=== PATIENT | female | born 1975 | race Caucasian/White ===

== ENCOUNTER 2023-06-12 15:58 | Outpatient (OUT) | payer BC, SELFPAY ==
--- NOTE | 2023-06-12 16:06 | XR_ITS ---
The [address] [address] Patient Name: DYLAN BRANDON MRN: [id number] date: 1975 Sex: F Assigned Patient Location: [facility] Current Patient Location: [facility] Accession/Order Number: [id number] Exam Date: 06/12/2023 16:10 Report Date: 06/12/2023 22:44 At the request of: CONNER GOOD Procedure: XR cervical spine 5V EXAM: XR cervical spine 5V HISTORY: Cervicalgia M54.2 COMPARISON: None. TECHNIQUE: 6 views of the cervical spine FINDINGS: Status post ACDF at C5-C6 without hardware complication. Vertebral body heights and alignment are preserved. Degenerative disc disease is most severe at C6-C7 where it is mild. Prevertebral soft tissues are within normal limits. No significant osseous narrowing of the neural foramina. The dens and lateral masses are symmetrically aligned. Lung apices are clear. XR/XR cervical spine 5V IMPRESSION: Status post ACDF at C5-C6 without hardware complication. Mild degenerative disc disease most notable at C6-C7. Electronically authenticated by: LAYLA GONZALES Date: 06/12/2023 22:44
== END 2023-06-12 15:59 | disposition home or self-care (01) ==
LOC: RAD 16:01
PROVIDERS: PCP Family Medicine; Visit Provider Family Medicine
DX: M54.2 Cervicalgia (principal)
CPT/HCPCS: 72050

== ENCOUNTER 2024-05-31 13:52 | Emergency (ER) | payer BC, SELFPAY ==
[2024-05-31 14:23] VITALS: BP 165/74; PULSE 76; TEMP 36.9; O2SAT 100; BMI 35.0
--- NOTE | 2024-05-31 14:40 | CT_ITS ---
The [address] [address] Patient Name: DYLAN BRANDON MRN: [id number] date: 1975 Sex: F Assigned Patient Location: ER Current Patient Location: ER Accession/Order Number: [id number] Exam Date: 05/31/2024 14:52 Report Date: 05/31/2024 15:34 At the request of: ASAF CERDA Procedure: CT abdomen pelvis wo con CT ABDOMEN/PELVIS WITHOUT IV CONTRAST. INDICATION: Flank pain COMPARISON: There are no other studies available for comparison. TECHNIQUE: Contiguous axial images were obtained from the lung bases to the pelvic floor without intravenous or oral contrast. Coronal and sagittal reformations are provided. FINDINGS: LOWER LUNGS: Clear. LIVER/BILIARY TREE: No discrete lesion. No intrahepatic ductal dilatation. GALLBLADDER: Status post cholecystectomy.. CBD: Normal CBD. SPLEEN: Normal in size. PANCREAS: No appreciable peripancreatic fluid. No pancreatic ductal dilatation. No discrete lesion. ADRENALS: Normal. KIDNEYS: No hydronephrosis. No radiopaque calculus. STOMACH AND BOWEL: Postoperative changes of the stomach. No dilated bowel loops. No bowel wall thickening. APPENDIX: Normal appendix. PERITONEAL CAVITY: No fluid. No fat stranding. ABDOMINAL WALL: No subcutaneous stranding. No subcutaneous fluid collection. LYMPH NODES: No mesenteric or retroperitoneal lymphadenopathy by CT criteria. ABDOMINAL AORTA: No aneurysm. PELVIS: There is mild bladder thickening and stranding. MUSCULOSKELETAL: No acute osseous abnormality. CT/CT abdomen pelvis wo con IMPRESSION: 1. Findings are suggestive of cystitis. 2. No obstructive uropathy. No nephrolithiasis. Electronically authenticated by: JEFFERSON PITTS Date: 05/31/2024 15:34
[2024-05-31 15:02] LABS: Basophils Absolute Auto 0.1 10^3/uL (0.0-0.1); Basophils Percent Auto 0.7 % (0.2-2.0); Eosinophils Absolute Auto 0.1 10^3/uL (0.0-0.7); Eosinophils Percent Auto 0.9 % (0.9-7.0); Hematocrit 33.5 % (36.0-48.0); Hemoglobin 10.1 g/dL (12.0-16.0); Immature Granulocytes Abs Auto 0.03 10^3/uL (0.00-0.03); Immature Granulocytes Pct Auto 0.3 % (0.0-0.5); Lymphocytes Percent Auto 11.5 % (20.5-60.0); Mean Corpuscular HGB Conc 30.1 g/dL (29.9-35.2); Mean Corpuscular Hemoglobin 25.1 pg (26.7-34.0); Mean Corpuscular Volume 83.3 fL (81.0-99.0); Mean Platelet Volume 9.9 fL (9.5-13.5); Monocytes Absolute Auto 0.7 10^3/uL (0.3-0.8); Monocytes Percent Auto 7.9 % (1.7-12.0); Neutrophils Absolute Auto 6.8 10^3/uL (1.4-6.5); Neutrophils Percent Auto 78.7 % (43.0-75.0); Platelet Count 228 10^3/uL (150-450); Red Blood Count 4.02 10^6/uL (4.20-5.40); Red Cell Distribution Width 14.5 % (11.0-15.0); White Blood Count 8.6 10^3/uL (4.0-11.0)
[2024-05-31 15:19] LABS: Lactate/Lactic Acid 0.6 mmol/L (0.4-2.0)
--- NOTE | 2024-05-31 15:40 | ED_ITS ---
HPI - Abdominal Pain General Chief Complaint: Abdominal Pain Stated Complaint: UTI COMPLAINTS Time Seen by Provider: 05/31/24 14:54 Source: patient Mode of arrival: walk-in Limitations: no limitations History of Present Illness HPI narrative: Patient is a 49-year-old female who presents to the emergency department for evaluation of suprapubic abdominal pain with radiation to the bilateral flanks for the last several days. She denies any unilateral CVA tenderness. No fevers. She states she vomited 2 hours ago. She has had burning with urination. She states she has been treated for UTI in the past but it has been several years. She is not concerned for . No medications taken prior to arrival. Related Data Previous Rx's ?Medication ?Instructions ?Recorded ciprofloxacin HCl 500 mg tablet 500 mg PO Q12H #14 tabs 05/31/24 ketorolac 10 mg tablet 10 mg PO TID PRN pain #10 tabs 05/31/24 ondansetron 4 mg disintegrating 4 mg PO Q6H PRN nausea and 05/31/24 tablet vomiting #12 tabs phenazopyridine 200 mg tablet 200 mg PO Q8H 2 days #6 tabs 05/31/24 (Pyridium) Allergies Allergy/AdvReac Type Severity Reaction Status Date / Time amoxicillin AdvReac Severe Palpitation Verified 05/31/24 14:23 s Review of Systems ROS Constitutional Denies: fever or chills Ears, nose, mouth, and throat Denies: throat pain or nasal congestion Cardiovascular Denies: chest pain Respiratory Denies: shortness of breath Gastrointestinal Reports: abdominal pain, nausea and vomiting; Denies: diarrhea Genitourinary Reports: painful urination Musculoskeletal Reports: back pain; Denies: neck pain Integumentary/Breast Denies: rash Hematologic/Lymphatic Denies: easy bruising or easy bleeding Exam Narrative Exam Narrative: Gen.: Awake, alert, in no distress Head: Normocephalic, atraumatic ENT: Moist mucous membranes Respiratory: No respiratory distress Gastrointestinal: Abdomen is soft, nondistended and tender to palpation in the suprapubic abdomen with no pain out of proportion on exam. No guarding or rebound Back: No CVA tenderness Extremities: Moves extremities equally Psych: Normal mood and affect Neuro: No focal neuro deficit Skin: Warm, dry, intact Constitutional Vital Signs, click to edit/add: Last Vital Signs Temp 98.4 F 05/31/24 14:23 Pulse 76 05/31/24 14:23 Resp 18 05/31/24 14:23 BP 165/74 H 05/31/24 14:23 Pulse Ox 100 05/31/24 14:23 Course Vital Signs Vital signs: Vital Signs Temperature 98.4 F 05/31/24 14:23 Pulse Rate 76 05/31/24 14:23 Respiratory Rate 18 05/31/24 14:23 Blood Pressure 165/74 H 05/31/24 14:23 Pulse Oximetry 100 05/31/24 14:23 Temperature 98.4 F 05/31/24 14:23 Pulse Rate 76 05/31/24 14:23 Respiratory Rate 18 05/31/24 14:23 Blood Pressure 165/74 H 05/31/24 14:23 Pulse Oximetry 100 05/31/24 14:23 MDM - Abdominal Pain MDM Narrative Medical decision making narrative: Patient treated with IV fluids, pain medication, Toradol and Zofran. Laboratory studies reviewed and noted showing nitrate positive urinary tract infection with otherwise unremarkable labs and no evidence of acute kidney injury or sepsis. CT of the abdomen and pelvis without contrast shows no evidence of acute process. Patient treated for cystitis/UTI with antibiotics, Toradol, Pyridium, Zofran for home. Follow-up with PCP and return to the ER if symptoms change or worsen SUPERVISED APC VISIT, PHYSICIAN ATTESTATION: Based on the medical record the care appears appropriate. ? Medical Records Attestation: I reviewed the patient's medical records. Lab Data Attestation: I reviewed the patient's lab results. Labs: Lab Results 05/31/24 05/31/24 Range/Units 14:31 14:47 WBC 8.6 (4.0-11.0) 10^3/uL RBC 4.02 L (4.20-5.40) 10^6/uL Hgb 10.1 L (12.0-16.0) g/dL Hct 33.5 L (36.0-48.0) % MCV 83.3 (81.0-99.0) fL MCH 25.1 L (26.7-34.0) pg MCHC 30.1 (29.9-35.2) g/dL RDW 14.5 (11.0-15.0) % Plt Count 228 (150-450) 10^3/uL MPV 9.9 (9.5-13.5) fL Neut % (Auto) 78.7 H (43.0-75.0) % Lymph % (Auto) 11.5 L (20.5-60.0) % [place] % (Auto) 7.9 (1.7-12.0) % Eos % (Auto) 0.9 (0.9-7.0) % Baso % (Auto) 0.7 (0.2-2.0) % Neut # (Auto) 6.8 H (1.4-6.5) 10^3/uL Lymph # (Auto) 1.0 L (1.2-3.8) 10^3/uL [place] # (Auto) 0.7 (0.3-0.8) 10^3/uL Eos # (Auto) 0.1 (0.0-0.7) 10^3/uL Baso # (Auto) 0.1 (0.0-0.1) 10^3/uL Abs Immat Gran (auto) 0.03 (0.00-0.03) 10^3/uL Imm/Tot Granulo (auto) 0.3 (0.0-0.5) % Sodium 137 (136-145) mmol/L Potassium 4.1 (3.5-5.1) mmol/L Chloride 103 (98-107) mmol/L Carbon Dioxide 25.0 (21.0-32.0) mmol/L Anion Gap 13.1 BUN 7.0 (7.0-18.0) mg/dL Creatinine 0.68 (0.55-1.02) mg/dL Est GFR ( Amer) >60 (>=60) Est GFR (Non-Af Amer) >60 (>=60) BUN/Creatinine Ratio 10.3 Glucose 93 (74-106) mg/dL Lactate 0.6 (0.4-2.0) mmol/L Calcium 8.5 (8.5-10.1) mg/dL Total Bilirubin 0.8 (0.2-1.0) mg/dL AST 26 (15-37) U/L ALT 28 (14-59) U/L Alkaline Phosphatase 80 (46-116) U/L Total Protein 7.3 (6.4-8.2) g/dL Albumin 3.5 (3.4-5.0) g/dL Globulin 3.8 g/dL Albumin/Globulin Ratio 0.9 Lipase 17.0 (16.0-77.0) U/L Urine Color Lt. yellow (YELLOW) Urine Clarity Sl cloudy (CLEAR) Urine pH 7.0 (5.0-9.0) Ur Specific [place] 1.025 (1.005-1.025) Urine Protein 100 A (NEG/TRACE) mg/dL Urine Glucose (UA) Negative (NEGATIVE) mg/dL Urine Ketones Negative (NEGATIVE) mg/dL Urine Occult Blood Large A (NEGATIVE) Urine Nitrite Positive A (NEGATIVE) Urine Bilirubin Negative (NEGATIVE) Urine Urobilinogen 2.0 A (0.2-1.0) EU/dL Ur Leukocyte Esterase Small A (NEGATIVE) Urine RBC 50-75 A (0-2) #/HPF Urine WBC >100 A (NONE SEEN) #/HPF Ur Squamous Epith Cells Few A (NONE/RARE) #/LPF Ur Renal Epithelial Cell Few A (NONE SEEN) #/LPF Urine Crystals None seen (None Seen) #/HPF Urine Bacteria Moderate A (NONE SEEN) #/HPF Urine Casts None seen (NONE SEEN) #/LPF Urine Mucus Small A (NONE SEEN) Ur Culture Indicated? Yes Urine HCG, Qual Negative (NEGATIVE) Imaging Data CT scan - abdomen: Attestation: I have reviewed the pertinent imaging results. Radiologist's impression: ITS Impressions Abdomen/Pelvis CT 05/31/24 14:40 IMPRESSION: 1. Findings are suggestive of cystitis. 2. No obstructive uropathy. No nephrolithiasis. Electronically authenticated by: JEFFERSON PITTS Date: 05/31/2024 15:34 Discharge Plan Discharge Stand Alone Forms: Portal Instructions Chief Complaint: Abdominal Pain Clinical Impression: Urinary tract infection Patient Disposition: Home, Self-Care Time of Disposition Decision: 16:00 Condition: Good Prescriptions / Home Meds: New phenazopyridine [Pyridium] 200 mg tablet 200 mg PO Q8H 2 Days Qty: 6 0RF ciprofloxacin HCl 500 mg tablet 500 mg PO Q12H Qty: 14 0RF ketorolac 10 mg tablet 10 mg PO TID PRN (Reason: pain) Qty: 10 0RF ondansetron 4 mg tablet,disintegrating 4 mg PO Q6H PRN (Reason: nausea and vomiting) Qty: 12 0RF Print Language: Azeri Instructions: Urinary Tract Infection in Women (ED) Referrals: Sridevi Schultz MD [Primary Care Provider] - 1 week
[2024-05-31 15:45] LABS: Alanine Aminotransferase 28 U/L (14-59); Albumin Globulin Ratio 0.9; Albumin Level 3.5 g/dL (3.4-5.0); Alkaline Phosphatase 80 U/L (46-116); Anion Gap 13.1; Aspartate Amino Transferase 26 U/L (15-37); BUN Creatinine Ratio 10.3; Bilirubin Total 0.8 mg/dL (0.2-1.0); Calcium 8.5 mg/dL (8.5-10.1); Chloride 103 mmol/L (98-107); Estimated GFR (African America >60 (>=60); Estimated GFR (Non-African Ame >60 (>=60); Globulin 3.8 g/dL; Glucose 93 mg/dL (74-106); Potassium 4.1 mmol/L (3.5-5.1); Sodium 137 mmol/L (136-145); Total Protein 7.3 g/dL (6.4-8.2)
[2024-05-31 15:50] LABS: Bilirubin Urine NEGATIVE (NEGATIVE); Blood Urine LARGE (NEGATIVE); Clarity Urine SL CLOUDY (CLEAR); Color Urine LT. YELLOW (YELLOW); Glucose Urine UA NEGATIVE (NEGATIVE); Ketones Urine NEGATIVE (NEGATIVE); Leukocyte Esterase Urine SMALL (NEGATIVE); Nitrite Urine POSITIVE (NEGATIVE); Protein Urine 100 mg/dL (NEG/TRACE); Specific Gravity Urine 1.025 (1.005-1.025)
[2024-05-31 15:53] LABS: HCG Qualitative Urine* NEGATIVE (NEGATIVE); Internal Control Within Normal Limits
[2024-05-31 15:56] LABS: Urine Microscopic Indicated YES
[2024-05-31 15:58] LABS: Bacteria Urine MODERATE #/HPF (NONE SEEN); Mucus Urine SMALL (NONE SEEN); RBC Urine 50-75 #/HPF (0-2); Squamous Epithelial Cell Urine FEW #/LPF (NONE/RARE); WBC Urine >100 #/HPF (NONE SEEN)
[2024-05-31] MEDS: 0.9 % SODIUM CHLORIDE 1,000 ML 1000 ML IV (15:58)
[2024-05-31 15:59] LABS: Cast Seen? NONE SEEN #/LPF (NONE SEEN); Crystals Seen? None Seen #/HPF (None Seen); Renal Epithelial Cells Urine FEW #/LPF (NONE SEEN); Urine Culture Indicated YES
[2024-05-31] MEDS: ONDANSETRON PF 4 MG/2 ML VIAL IV (16:00)
[2024-05-31] MEDS: KETOROLAC TROMETHAMINE 30 MG/ML VIAL IVP (16:01)
[2024-05-31] MEDS: HYDROMORPHONE HCL 1 MG/ML CARTRIDGE IVP (16:02)
== END 2024-05-31 17:00 | disposition home or self-care (01) ==
PROVIDERS: Physician Assistant; Emergency Provider Emergency Medicine; PCP Family Medicine
DX: N39.0 Urinary tract infection, site not specified (principal)
CPT/HCPCS: 36415; 74176; 80053; 81001; 81003; 83605; 83690; 84703; 85025; 87086; 96361; 96374; 96375; 99285; J1170; J1885; J2405

== ENCOUNTER 2024-08-17 14:00 | Outpatient (OUT) | payer BC, SELFPAY ==
--- NOTE | 2024-08-17 14:06 | XR_ITS ---
The [address] [address] Patient Name: DYLAN BRANDON MRN: [id number] date: 1975 Sex: F Assigned Patient Location: [facility] Current Patient Location: Accession/Order Number: [id number] Exam Date: 08/17/2024 14:15 Report Date: 08/19/2024 06:59 At the request of: CONNER GOOD Procedure: XR shoulder LT min 2V PROCEDURE: XR shoulder LT min 2V HISTORY: Cervical Radicular Pain COMPARISON: None. FINDINGS: BONES:Degenerative osteophytes along the margins of the acromioclavicular joint. Unremarkable glenohumeral joint. SOFT TISSUES:No visible soft tissue swelling. EFFUSION:None visible. OTHER: Negative. XR/XR shoulder LT min 2V IMPRESSION: 1. No acute bone abnormality. 2. Degenerative change of the acromioclavicular joint which may contribute to patient's symptoms. Electronically authenticated by: PRATEEK FISHMAN Date: 08/19/2024 06:59
--- NOTE | 2024-08-17 14:06 | XR_ITS ---
The [address] [address] Patient Name: DYLAN BRANDON MRN: [id number] date: 1975 Sex: F Assigned Patient Location: [facility] Current Patient Location: [facility] Accession/Order Number: [id number] Exam Date: 08/17/2024 14:15 Report Date: 08/20/2024 06:58 At the request of: CONNER GOOD Procedure: XR cervical spine 5V EXAMINATION: XR cervical spine 5V HISTORY: Cervical Radicular Pain COMPARISON: XR cervical spine 06/12/2023 FINDINGS: BONES: No significant spondylosis, scoliosis, fracture, or visible bony lesion. DISC SPACES: Intervertebral disc spacer at C5-C6. Slight narrowing C6-C7. PARASPINOUS: Negative. No paraspinous abnormality is seen. OTHER: Negative. XR/XR cervical spine 5V IMPRESSION: 1. Stable intervertebral disc spacer at C5-C6. 2. Mild degenerative disc disease C6-C7; grossly stable. Electronically authenticated by: PRATEEK FISHMAN Date: 08/20/2024 06:58
--- OUTSIDE RECORDS SUMMARY | 2024-08-17 14:06 | XMS_ITS | CCD ---
Author Organization [facility] Care Team Providers Care Adolescent Medicine Specialist Name Role Phone Puma, Sunday Unavailable DR SRIDEVI SCHULTZ Primary Care Unavailable PAY, DR BURCH Admitting Unavailable PAY, DR BURCH Attending Unavailable PAY, DR BURCH Consulting Unavailable FABRIZIO DYKES Consulting Unavailable MARILU CALZADA Consulting Unavailable SCHULTZ, DR SRIDEVI Robles Admitting Unavailable SCHULTZ, DR SRIDEVI Robles Attending Unavailable SCHULTZ, DR SRIDEVI Robles Primary Care Unavailable WEST, DR ISRA Licona Consulting Unavailable FLORENTINO, DR SRIDEVI Robles Consulting Unavailable Sridevi Schultz Unavailable Allergies Allergy Classification Reported Allergen(s) Allergy Type Date of Onset Reaction(s) Facility (20 sources) Amoxicillin Drug Allergy 01-15-20 24 Unknown, Unknown Reaction [facility] (20 sources) Amoxicillin / Clavulanate; Translations: [Augmentin] Drug Allergy Unknown [facility] Repository (1 source) Amoxicillin Drug Allergy 02-01-20 14 [facility] Repository (14 sources) Pseudoephedrine Drug Allergy Unknown [employer] [facility] Other (1 source) Allergies Reconciled Propensity to adverse reactions Unknown [employer] [facility] Other (1 source) patient allergy list reviewed by nurse or physicia Propensity to adverse reactions 03-17-20 Comment:Done [employer] [facility] Other (3 sources) Clavulanate Drug Allergy 01-15-20 24 Unknown Reaction [facility] (3 sources) 12 Hour Decongestant Allergy to substance 01-14-20 Hives [facility] Medications Current Medications Medication Drug Class(es) Dates Sig (Normalized) Sig (Original) ALPRAZolam 0.25 mg oral tablet (20 sources) Benzodiazepine Start: 11-19-2020 take 0.25 mg by mouth twice daily Alprazolam Active 0.25 MG PO Twice daily November 19, 2020 1:00am 24 hr buPROPion hydrochloride 300 mg extended release oral tablet (20 sources) Aminoketone Start: 04-19-2024 take 1 tablet by mouth once daily Bupropion Hcl Active 0 .ROUTE .COMPLEX 90 April 19, 2024 10:23am TAKE 1 TABLET BY MOUTH EVERY DAY Start: 01-14-2024 End: 04-19-2024 take 300 mg by mouth once daily Bupropion Hcl Disconti nued 300 MG PO Daily January 14, 2024 12:00am April 19, 2024 10:23am Start: 11-19-2020 End: 01-15-2024 take 100 mg by mouth once daily Bupropion Hcl Disconti nued 100 MG PO Daily November 19, 2020 1:00am January 15, 2024 12:05pm take 1 tablet by michelle th once daily buPROPion HCl ER (XL) 300 MG TAKE 1 TABLET BY MOUTH EVERY DAY for 90 days Active take 1 tablet by michelle th every twenty-four hours buPROPion HCl ER (SR) 200 MG 1 tablet in the morning Orally Once a day for 30 days Not-Taking nitrofurantoin, macrocrystals 25 mg / nitrofurantoin, monohydrate 75 mg oral capsule (1 source) Nitrofuran Antibacterial Start: 06-10-2024 take 1 capsule by mouth every twelve hours at mealtime Nitrofurantoin Monohyd/M-Cryst (Macrobid) 100 mg capsule Active 100 MG PO Every 12 hours 10 June 10, 2024 12:00am must administer with a meal/food omeprazole 40 mg delayed release oral capsule (17 sources) Proton Pump Inhibitor Start: 11-19-2020 take 40 mg by mouth once daily Omeprazole Active 40 MG PO Daily November 19, 2020 1:00am pantoprazole 40 mg delayed release oral tablet (20 sources) Proton Pump Inhibitor take 1 tablet by mouth once daily Pantoprazole Sodium 40 MG TAKE 1 TABLET BY MOUTH EVERY DAY for 90 Active paxlovid (300/100) 20 x 150 mg & 10 x 100mg tablet therapy pack (1 source) Start: 11-14-2023 take 3 tablets by mouth every twelve hours Paxlovid (300/100) 20 x 150 MG & 10 x 100MG 3 tablets Orally Twice a day for 5 day(s) Nov, Active phenazopyridine hydrochloride 200 mg oral tablet (2 sources) Start: 05-31-2024 take 1 tablet by mouth three times daily Phenazopyridine (Pyridium) 200 mg tablet Active 200 MG PO Three times daily May 31, 2024 12:00am predniSONE 20 mg oral tablet (13 sources) Start: 06-12-2023 take 2 tablets by mouth every twenty-four hours predniSONE 20 MG 2 tablets Orally Once a day for 5 days May, Active sertraline 100 mg oral tablet (3 sources) Serotonin Reuptake Inhibitor Start: 11-19-2020 take 100 mg by mouth once daily Sertraline Active 100 MG PO Daily November 19, 2020 1:00am tiZANidine 4 mg oral tablet (20 sources) Central alpha-2 Adrenergic Agonist take 1 tablet by mouth every eight hours tiZANidine HCl 4 MG 1 tablet as needed Orally Three times a day Active traZODone hydrochloride 150 mg oral tablet (20 sources) Serotonin Reuptake Inhibitor Start: 12-10-2023 Trazodone Active 0 .ROUTE .COMPLEX 135 December 10, 2023 10:34am TAKE 1 AND 1/2 TABLETS BY MOUTH EVERY DAY AT BEDTIME Start: 11-19-2020 End: 12-10-2023 take 150 mg by mouth once daily at bedtime Trazodone Discontinued 150 MG PO Daily at bedtime November 19, 2020 1:00am December 10, 2023 10:34am take 1.5 tablets by mouth once daily at bedtime traZODone HCl 150 MG TAKE 1.5 TABLETS BY MOUTH EVERY DAY AT BEDTIME for 90 Active Completed/Discontinued Medications Medication Drug Class(es) Dates Sig (Normalized) Sig (Original) azithromycin 250 mg oral tablet (6 sources) Macrolide Antimicrobial Start: 12-02-2023 End: 01-14-2024 Azithromycin Discontinued 0 PO .COMPLEX 6 December 02, 2023 2:18pm January 14, 2024 12:16pm For 250 mg dose pack: take 500 mg today (day 1), then 250 mg for 4 days (days 2-5) PO Start: 11-25-2023 End: 12-02-2023 Azithromycin Discontinued 0 PO .COMPLEX 6 November 25, 2023 1:00am December 02, 2023 2:18pm For 250 mg dose pack: take 500 mg today (day 1), then 250 mg for 4 days (days 2-5) PO brexpiprazole 0.25 mg oral tablet (20 sources) Atypical Antipsychotic Start: 12-11-2023 End: 03-25-2024 take 1 tablet by mouth once daily Brexpiprazole (Rexulti) 0.25 mg tablet Discontinued 0.25 MG PO Daily December 11, 2023 1:55pm March 25, 2024 3:05pm take 1 tablet by michelle every twenty-four hours Rexulti 0.25 MG 1 tablet Orally Once a day for 90 days Active fluconazole 150 mg oral tablet (2 sources) Azole Antifungal Start: 05-12-2024 End: 05-31-2024 Fluconazole Discontinued 150 MG PO Q3D May 12, 2024 12:00am May 31, 2024 10:37am fludrocortisone acetate 0.1 mg oral tablet (3 sources) Start: 11-19-2020 End: 01-15-2024 take 0.1 mg by mouth once daily Fludrocortisone Discontinued 0.1 MG PO Daily November 19, 2020 1:00am January 15, 2024 12:06pm fluticasone propionate 0.05 mg/actuat metered dose nasal spray (14 sources) Corticosteroid Start: 05-10-2021 take 1 spray(s) nasal route once daily Flonase Allergy Relief 50 MCG/ACT 1 spray in each nostril Nasally Once a day for 14 day(s) Apr, Not-Taking gabapentin 300 mg oral capsule (20 sources) Anti-epileptic Agent Start: 11-19-2020 End: 05-31-2024 Gabapentin Discontinued 300 MG PO Three times daily December 23, 2023 10:17am March 02, 2024 12:46pm 1 po qam, 1 po q noon, 2 po whs Start: 11-19-2020 End: 01-15-2024 take 600 mg by mouth once daily at bedtime Gabapentin Discontinued 600 MG PO Daily at bedtime November 19, 2020 1:00am January 15, 2024 12:06pm Gabapentin 300 M G 1 capsule Orally 1 po qam, 1 po q noon and 2 po qhs for 30 days f41.1 Active take 1 capsule by mo uth every six hours Gabapentin 300 MG 1 capsule Orally four times a day for 90 days f41.1 Active Leptisense (3 sources) Start: 11-19-2020 End: 01-15-2024 take 1 capsule by mouth once daily Leptisense Discontinued 1 CAP PO Daily November 19, 2020 1:00am January 15, 2024 12:07pm Nirmatrelvir-Ritonavir (3 sources) Start: 01-14-2024 End: 01-15-2024 Nirmatrelvir-Austen navir (Paxlovid) 300 mg (150 mg x 2)-100 mg tablets,dose pack Discontinued TAB PO January 14, 2024 12:00am January 15, 2024 12:07pm sulfamethoxazole 800 mg / trimethoprim 160 mg oral tablet (13 sources) Dihydrofolate Reductase Inhibitor Antibacterial, Sulfonamide Antimicrobial Start: 05-31-2024 End: 06-10-2024 take 1 tablet by mouth twice daily Sulfamethoxazole- Trimethoprim Discontinued 1 TAB PO Twice daily May 31, 2024 12:00am June 10, 2024 2:48pm Start: 11-08-2022 take 1 tablet by michelle th every twelve hours Bactrim DS 800-160 MG 1 tablet Orally Twice a day for 10 day(s) Oct, Active vortioxetine 20 mg oral tablet (20 sources) Start: 11-19-2020 End: 05-04-2024 take 1 tablet by mouth once daily Vortioxetine (Trintellix) 20 mg tablet Discontinued 20 MG PO Daily February 05, 2024 12:02pm May 04, 2024 12:32pm Problems Active Problems Problem Classification Problem Date Documented Da te Episodic/Chronic Anxiety disorders (20 sources) Generalized anxiety disorder; Translations: [Generalized anxiety disorder] Onset: 3 01-17-2024 Chronic Disorders of teeth and jaw (20 sources) Infection of tooth; Translations: [Periapical abscess without sinus] Episodic Esophageal disorders (20 sources) Gastroesophageal reflux disease without esophagitis; Translations: [Gastro-esophageal reflux disease without esophagitis] Chronic Genitourinary symptoms and ill-defined conditions (20 sources) Dysuria; Translations: [Dysuria] 05-31-2024 Episodic Headache; including migraine (20 sources) Complicated migraine; Translations: [Migraine with aura, not intractable, without status migrainosus] Chronic Influenza (1 source) Upper respiratory tract infection due to Influenza; Translations: [Influenza due to unidentified influenza virus with other respiratory manifestations] Episodic Mood disorders (20 sources) Moderate recurrent major depression; Translations: [Major depressive disorder, recurrent, moderate] Onset: 2 Resolved: 2 Chronic Mycoses (1 source) Candidiasis; Translations: [Candidiasis, unspecified] Episodic Nausea and vomiting (20 sources) Nausea; Translations: [Nausea] Episodic Nonspecific chest pain (20 sources) Left sided chest pain; Translations: [Chest pain, unspecified] Onset: 8 11-19-2020 Episodic Other connective tissue disease (20 sources) Spasm; Translations: [Other muscle spasm] Episodic Other gastrointestinal disorders (2 sources) History of bariatric surgical procedure; Translations: [Bariatric surgery status] 01-17-2024 Episodic Other non-traumatic joint disorders (9 sources) Shoulder pain; Translations: [Pain in left shoulder] Episodic Other non-traumatic joint disorders (15 sources) Pain in left shoulder; Translations: [Left shoulder pain] Episodic Other non-traumatic joint disorders (1 source) Shoulder joint pain; Translations: [Pain in left shoulder] Episodic Other nutritional; endocrine; and metabolic disorders (20 sources) Obese class II; Translations: [Body mass index (BMI) 38.0-38.9, adult] Chronic Other nutritional; endocrine; and metabolic disorders (1 source) Simple obesity ; Translations: [Other obesity due to excess calories] Onset: 8 Chronic Other nutritional; endocrine; and metabolic disorders (1 source) Obese class I; Translations: [Body mass index 34.0-34.9, adult] Onset: 8 Chronic Other nutritional; endocrine; and metabolic disorders (1 source) Body mass index 30+ - obesity; Translations: [Body mass index 30.0-30.9, adult] Onset: 8 Chronic Other nutritional; endocrine; and metabolic disorders (1 source) Body mass index 40+ - severely obese; Translations: [Body Mass Index 45.0-49.9, adult] Onset: 6 Chronic Other nutritional; endocrine; and metabolic disorders (4 sources) Obesity; Translations: [Obesity, unspecified] 01-17-2024 Chronic Other screening for suspected conditions (not mental disorders or infectious disease) (4 sources) Encounter for screening mammogram for malignant neoplasm of breast; Translations: [ENC SCR MAMMO MALIG NEOPLASM BREAST] Onset: 2 Episodic Other upper respiratory infections (20 sources) Pharyngitis; Translations: [Acute pharyngitis, unspecified] Onset: 3 Episodic Otitis media and related conditions (20 sources) Non-suppurative otitis media; Translations: [Unspecified nonsuppurative otitis media, right ear] Episodic Residual codes; unclassified (1 source) Family history of malignant neoplasm of trachea, bronchus and lung; Translations: [FAM HX MALIG NEOPLSM TRACH BRON LNG] Onset: 2 Episodic Residual codes; unclassified (20 sources) Family history of ischemic heart disease; Translations: [Family history of ischemic heart disease and other diseases of the circulatory system] Episodic Residual codes; unclassified (1 source) Family history of diabetes mellitus; Translations: [Family history of diabetes mellitus] Episodic Spondylosis; intervertebral disc disorders; other back problems (20 sources) Lumbago with sciatica; Translations: [Other specified dorsopathies, lumbar region] Episodic Substance-related disorders (1 source) Tobacco user; Translations: [Nicotine dependence, cigarettes, in remission] Onset: 6 Chronic Systemic lupus erythematosus and connective tissue disorders (1 source) Autoimmune disease; Translations: [Autoimmune disease, not elsewhere classified] Onset: 6 Chronic Thyroid disorders (1 source) Hypothyroidism; Translations: [Hypothyroidism, unspecified] Onset: 6 Chronic Unclassified (1 source) Acute candidiasis of vulva and vagina; Translations: [Acute candidiasis of vulva and vagina] Past or Other Problems Problem Classification Problem Date Documented Da te Episodic/Chronic Abdominal pain (1 source) Right upper quadrant pain; Translations: [Right upper quadrant pain] Onset: 02-28-2014 Episodic Acute bronchitis (1 source) Acute bronchitis; Translations: [Acute bronchitis, unspecified] Onset: 11-24-2014 Episodic Bacterial infection; unspecified site (1 source) Bacterial infectious disease; Translations: [Bacterial infection, unspecified, in conditions classified elsewhere and of unspecified site] Onset: 01-04-2019 Episodic Conditions associated with dizziness or vertigo (2 sources) Benign paroxysmal positional vertigo; Translations: [Benign paroxysmal vertigo, unspecified ear] Onset: 10-26-2014 Episodic E Codes: Overexertion (1 source) Slipping, tripping and stumbling without falling due to stepping from one level to another, initial encounter; Translations: [SLIP STMBL NO FALL 1 LVL ANOTHR INT] Onset: 02-05-2022 Episodic Fracture of lower limb (1 source) Other fracture of left foot, initial encounter for closed fracture; Translations: [OTHER FRACTURE LT FOOT INITIAL CLSD] Onset: 02-05-2022 Episodic Malaise and fatigue (1 source) Malaise and fatigue; Translations: [Other malaise and fatigue] Onset: 10-26-2014 Episodic Neoplasms of unspecified nature or uncertain behavior (1 source) Neoplasm of uncertain behavior of soft tissues; Translations: [Neoplasms of unspecified nature of bone, soft tissue, and skin] Onset: 09-08-2013 Episodic Other connective tissue disease (3 sources) Pain in left foot; Translations: [PAIN IN LEFT FOOT] Onset: 02-04-2022 Episodic Other connective tissue disease (14 sources) Pain in limb; Translations: [Pain in left finger(s)] Onset: 09-28-2018 Episodic Other non-traumatic joint disorders (1 source) Arthralgia of the ankle and/or foot; Translations: [Pain in joint, ankle and foot] Onset: 05-02-2016 Episodic Screening and history of mental health and substance abuse codes (1 source) History of tobacco use; Translations: [Personal history of tobacco use, presenting hazards to health] Onset: 05-26-2018 Episodic Unclassified (20 sources) Yeast infection of the vagina; Translations: [Yeast infection of the vagina] Viral infection (2 sources) Disease caused by 2019-nCoV; Translations: [COVID-19] Results Test Name Value Interpretation Reference Range Facility Basophils Auto (Bld) [#/Vol] on 05-31-2024 Basophils (Bld) [#/Vol] 0.1 10 3/uL 0.0-0.1 [facility] Basophils/100 WBC Auto (Bld) on 05-31-2024 Basophils/100 WBC (Bld) 0.7 % 0.2-2.0 [facility] Eosinophils/100 WBC Auto (Bl d)on 05-31-2024 Eosinophils/100 WBC (Bld) 0.9 % 0.9-7.0 [facility] Erythrocyte distribution wid th Auto (RBC) [Ratio]on 05-31-2024 Erythrocyte distribution width (RBC) [Ratio] 14.5 % 11.0-15.0 [facility] Estimated glomerular filtrat ion rate (GFR) non- Americanon 05-31-2024 GFR/1.73 sq M.predicted among non-blacks MDRD (S/P/Bld) [Vol rate/Area] mL/min/{1.73_m2} >=60 [facility] Globulin Calc (S) [Mass/Vol] on 05-31-2024 Globulin (S) [Mass/Vol] 3.8 g/dL [facility] HCG ( test) IA.rapi d Ql (U)on 05-31-2024 HCG ( test) Ql (U) Negative NEGATIVE [facility] Hematocrit Auto (Bld) [Volum e fraction]on 05-31-2024 Hematocrit (Bld) [Volume fraction] 33.5 % Low 36.0-48.0 [facility] Hemoglobin [Mass/volume] in Bloodon 05-31-2024 Hemoglobin (Bld) [Mass/Vol] 10.1 g/dL Low 12.0-16.0 [facility] Laboratory - Chemistry and C hemistry - challengeon 05-31-2024 Albumin [Mass/Vol] 3.5 g/dL 3.4-5.0 [facility] ALP [Catalytic activity/Vol] 80 U/L 46-116 [facility] ALT [Catalytic activity/Vol] 28 U/L 14-59 [facility] AST [Catalytic activity/Vol] 26 U/L 15-37 [facility] Bilirubin [Mass/Vol] 0.8 mg/dL 0.2-1.[address] [facility] Calcium [Mass/Vol] 8.5 mg/dL 8.5-10.1 [facility] Chloride [Moles/Vol] 103 mmol/L 98-[address] [facility] CO2 [Moles/Vol] 25.0 mmol/L 21.0-32.0 [facility] Creatinine [Mass/Vol] 0.68 mg/dL 0.55-1.02 [facility] GFR/1.73 sq M.predicted MDRD (S/P/Bld) [Vol rate/Area] mL/min/{1.73_m2} >=60 [facility] Glucose [Mass/Vol] 93 mg/dL 74-106 [facility] Lactate [Moles/Vol] 0.6 mmol/L 0.4-2.0 [facility] Lipase [Catalytic activity/Vol] 17.0 U/L 16.0-77.0 [facility] Potassium [Moles/Vol] 4.1 mmol/L 3.5-5.1 [facility] Protein [Mass/Vol] 7.3 g/dL 6.4-8.2 [facility] Sodium [Moles/Vol] 137 mmol/L 136-145 [facility] Urea nitrogen [Mass/Vol] 7.0 mg/dL 7.0-18.0 [facility] Urea nitrogen/Creatinine [Mass ratio] 10.3 mg/mg [facility] Bilirubin Ql (U) Negative NEGATIVE [facility] Glucose (U) [Mass/Vol] Negative NEGATIVE [facility] Ketones Ql (U) Negative NEGATIVE [facility] pH (U) 7.0 [pH] 5.0-9.0 [facility] Specific gravity (U) [Rel density] 1.025 1.005-1.025 [facility] Urobilinogen Qn (U) 2.0 {Estiven'U}/dL Abnormal 0.2-1.0 [facility] Laboratory - Hematology and Cell countson 05-31-2024 Immature granulocytes/100 WBC (Bld) 0.3 % 0.0-0.5 [facility] Laboratory - Specimen inform ationon 05-31-2024 Appearance (U) SL CLOUDY CLEAR [facility] Color (U) LT. YELLOW YELLOW [facility] Laboratory - Urinalysison Leukocyte esterase Test strip Ql (U) SMALL Abnormal NEGATIVE [facility] Mucus Ql (Urine sed) SMALL Abnormal NONE SEEN [facility] Nitrite Ql (U) Positive Abnormal NEGATIVE [facility] Protein Ql (U) 100 mg/dL Abnormal NEG/TRACE [facility] Leukocytes [#/volume] correc jenn for nucleated erythrocytes in Blood by Automated counon 05-31-2024 WBC corrected for nucl RBC Auto (Bld) [#/Vol] 8.6 10 3/uL 4.0-11.0 [facility] Lymphocytes Auto (Bld) [#/Vo l]on 05-31-2024 Lymphocytes (Bld) [#/Vol] 1.0 10 3/uL Low 1.2-3.8 [facility] Lymphocytes/100 WBC Auto (Bl d)on 05-31-2024 Lymphocytes/100 WBC (Bld) 11.5 % Low 20.5-60.0 [facility] MCH Auto (RBC) [Entitic mass ]on 05-31-2024 MCH (RBC) [Entitic mass] 25.1 pg Low 26.7-34.0 [facility] MCHC Auto (RBC) [Mass/Vol]on 05-31-2024 MCHC (RBC) [Mass/Vol] 30.1 g/dL 29.9-35.2 [facility] MCV Auto (RBC) [Entitic vol] on 05-31-2024 MCV (RBC) [Entitic vol] 83.3 fL 81.0-99.0 [facility] Monocytes Auto (Bld) [#/Vol] on 05-31-2024 Monocytes (Bld) [#/Vol] 0.7 10 3/uL 0.3-0.8 [facility] Monocytes/100 WBC Auto (Bld) on 05-31-2024 Monocytes/100 WBC (Bld) 7.9 % 1.7-12.0 [facility] Neutrophils Auto (Bld) [#/Vo l]on 05-31-2024 Neutrophils (Bld) [#/Vol] 6.8 10 3/uL High 1.4-6.5 [facility] Neutrophils/100 WBC Auto (Bl d)on 05-31-2024 Neutrophils/100 WBC (Bld) 78.7 % High 43.0-75.0 [facility] No Panel Informationon 05-31 Eosinophils # (Auto) 0.1 10 3/uL 0.0-0.7 [facility] Immature Granulocyte # (Auto) 0.03 10 3/uL 0.00-0.03 [facility] Miscellaneous Test Comment See comment [facility] Comment on above: Specimen Source: UCC - Urine,Clean Catch - Urine CC - 200.100 Urine Bacteria MODERATE #/HPF Abnormal NONE SEEN [facility] Urine Culture Reflexed YES [facility] Urine Microscopic Review YES [facility] Urine Occult Blood LARGE Abnormal NEGATIVE [facility] Urine Other Casts NONE SEEN #/LPF NONE SEEN [facility] Urine Other Crystals None Seen #/HPF None Seen [facility] Urine RBC 50-75 #/HPF Abnormal 0-2 [facility] Urine Renal Epithelial Cells FEW #/LPF Abnormal NONE SEEN [facility] Urine Squamous Epithelial Cells FEW #/LPF Abnormal NONE/RARE [facility] Urine WBC >100 #/HPF Abnormal NONE SEEN [facility] Platelet mean volume Auto (B ld) [Entitic vol]on 05-31-2024 Platelet mean volume (Bld) [Entitic vol] 9.9 fL 9.5-13.5 [facility] Platelets Auto (Bld) [#/Vol] on 05-31-2024 Platelets (Bld) [#/Vol] 228 10 3/uL 150-450 [facility] RBC Auto (Bld) [#/Vol]on RBC (Bld) [#/Vol] 4.02 10 6/uL Low 4.20-5.40 [facility] Serum or plasma albumin/glob ulin mass ratioon 05-31-2024 Albumin/Globulin [Mass ratio] 0.9 {ratio} [facility] Serum or plasma anion gap de terminationon 05-31-2024 Anion gap [Moles/Vol] 13.1 mmol/L [facility] Urine culture routineon 05-13 Bacteria identified Cx Nom (U) [facility] MG MAMM SCREEN 3D CHAI CADon 07-22-2022 MG MAMM SCREEN 3D CHAI CAD Patient: DYLAN MOONEYNeymar Exam Date: 07/22/2022 : 1975 Gender:F Ordering : DR SRIDEVI SCHULTZ M.D. Admission #: [id number] Family : Order #: [id number] CLICK HERE TO VIEW EXAM RADIOLOGY REPORT PROCEDURE: MAMMOGRAM SCREENING 3D BILATERAL CAD COMPARISON: None. INDICATIONS: Screening mammography Calculator Name NCI Breast Cancer Risk Assessment Tool 5 Year Breast Cancer Risk 0.70% Lifetime Breast Cancer Risk 8.60% Personal Breast Cancer No Personal Ovarian Cancer No Treatments None Family Cancers Father with lung cancer at age 42. LOCATION: [facility] BREAST COMPOSITION: Heterogeneously dense,which may obscure small masses. FINDINGS: DIAGNOSTIC CATEGORY 2--BENIGN FINDING: Scattered benign-appearing calcifications are present. Scattered benign-appearing lymph nodes are present. RIGHT BREAST: No significant suspicious finding. LEFT BREAST: No significant suspicious finding. RECOMMENDATIONS: ROUTINE MAMMOGRAM AND CLINICAL EVALUATION IN 12 MONTHS. PLEASE NOTE: A NORMAL MAMMOGRAM DOES NOT EXCLUDE THE POSSIBILITY OF BREAST CANCER. A CLINICALLY SUSPICIOUS PALPABLE LUMP SHOULD BE BIOPSIED. Dictated by: Isra Roland MD on 07/22/2022 at 09:11 Approved by: Isra Roland MD on 07/22/2022 at 09:29 Normal [facility] XR FOOT LT MIN 3 VIEWSon XR FOOT LT MIN 3 VIEWS EXAM: XR FOOT LT MIN 3 VIEWS HISTORY: Pain in left foot COMPARISON: None. TECHNIQUE: Frontal, lateral, and oblique views of the left foot. FINDINGS: Mineralization: Within normal limits. Bones: Linear 5.5 mm hyperdensity overlying the TMT joints dorsally. Small plantar calcaneal spur Joints: Normal joint spacing. Soft Tissues: Unremarkable. IMPRESSION: Dorsal avulsion fracture along the (medial) TMT joints. Electronically authenticated by: MARILU CALZADA Date: 2022-02-04 14:38 Normal [facility] Vital Signs Date Time Vital Sign Value Performing Clinician Facility 05-31-2024 10:33-040 Body height 170.18 cm [facility] 05-31-2024 10:33-0400 Body mass index (BMI) [Ratio] 34.4 kg/m2 [facility] 05-31-2024 10:33-0400 Body temperature 98 [degF] [facility] 05-31-2024 10:33-0400 Body weight 99.79 kg [facility] 05-31-2024 10:33-0400 Diastolic blood pressure 79 mm[Hg] [facility] 05-31-2024 10:33-0400 Heart rate 73 /min [facility] 05-31-2024 10:33-0400 Systolic blood pressure 112 mm[Hg] [facility] 01-15-2024 11:59-0400 Body height 170.18 cm [facility] 01-15-2024 11:59-0400 Body mass index (BMI) [Ratio] 36.6 kg/m2 [facility] 01-15-2024 11:59-0400 Body weight 106.14 kg [facility] 01-15-2024 11:59-0400 Diastolic blood pressure 73 mm[Hg] [facility] 01-15-2024 11:59-0400 Heart rate 66 /min [facility] 01-15-2024 11:59-0400 Systolic blood pressure 110 mm[Hg] [facility] 06-12-2023 15:15-0400 Body height 170.18 cm Sridevi Schultz Other [employer] [facility] [employer] Other 06-12-2023 15:15-0400 Body mass index (BMI) [Ratio] 37.4 kg/m2 Sridevi Schultz Other [employer] [facility] [employer] Other 06-12-2023 15:15-0400 Body weight 108.32 kg Sridevi Schultz Other [email or web address] Other 06-12-2023 15:15-0400 Diastolic blood pressure 66 mm[Hg] Sridevi Schultz Other [email or web address] Other 06-12-2023 15:15-0400 Systolic blood pressure 108 mm[Hg] Sridevi Schultz Other [email or web address] Other Encounters Encounter Date Encounter Type Care Provider Facility Start: 06-10-2024 End: 06-10-2024 [facility] Work Phone: Start: 06-10-2024 End: 06-10-2024 Patient encounter procedure [facility] Physician [facility] Work Phone: Start: 05-31-2024 End: 05-31-2024 ambulatory [facility] Work Phone: Start: 05-31-2024 End: 05-31-2024 Patient encounter procedure [facility] Physician [facility] Work Phone: Start: 01-15-2024 End: 01-15-2024 ambulatory [facility] Work Phone: Start: 01-15-2024 End: 01-15-2024 Patient encounter procedure [facility] Work Phone: Start: 12-22-2023 Non-patient / Non-visit [facility] Work Phone: Start: 12-11-2023 Non-patient / Non-visit [facility] Physician [facility] Work Phone: Start: 11-14-2023 End: 11-14-2023 ambulatory Sridevi Schultz Other [email or web address] Other Start: 11-14-2023 Office outpatient vi sit 15 minutes Sridevi Schultz [facility] Start: 11-04-2023 End: 11-04-2023 ambulatory Sridevi Schultz Other [email or web address] Other Start: 11-04-2023 Telephone encounter Sridevi Schultz [facility] Start: 10-14-2023 End: 10-14-2023 ambulatory Sridevi Schultz Other [email or web address] Other Start: 10-14-2023 Telephone encounter Sridevi Schultz [facility] Start: 10-10-2023 End: 10-10-2023 ambulatory Sridevi Schultz Other [email or web address] Other Start: 10-10-2023 Telephone encounter Sridevi Schultz [facility] Start: 10-07-2023 End: 10-07-2023 ambulatory Sridevi Schultz Other [email or web address] Other Start: 10-07-2023 Telephone encounter Sridevi Schultz [facility] Start: 09-12-2023 End: 09-12-2023 ambulatory Sridevi Schultz Other [email or web address] Other Start: 09-12-2023 Telephone encounter Sridevi Schultz [facility] Start: 08-08-2023 End: 08-08-2023 ambulatory Sridevi Schultz Other [email or web address] Other Start: 08-08-2023 Telephone encounter Sridevi Schultz [facility] Start: 08-05-2023 End: 08-05-2023 ambulatory Sridevi Schultz Other [email or web address] Other Start: 08-05-2023 Telephone encounter Sridevi Schultz [facility] Start: 07-24-2023 End: 07-24-2023 ambulatory Sridevi Schultz Other [email or web address] Other Start: 07-24-2023 Telephone encounter Sridevi Schultz [facility] Start: 07-08-2023 End: 07-08-2023 ambulatory Sridevi Schultz Other [email or web address] Other Start: 07-08-2023 Telephone encounter Sridevi Schultz [facility] Start: 06-13-2023 End: 06-13-2023 ambulatory Sridevi Schultz Other [email or web address] Other Start: 06-13-2023 Telephone encounter Sridevi Schultz [facility] Start: 06-12-2023 End: 06-12-2023 ambulatory Sridevi Schultz Other [email or web address] Other Start: 06-12-2023 Office outpatient vi sit 15 minutes Sridevi Florentino [facility] Start: 06-12-2023 Telephone encounter Sridevi Schultz [facility] Start: 06-05-2023 End: 06-05-2023 ambulatory Sridevi Schultz Other [email or web address] Other Start: 06-05-2023 Telephone encounter Sridevi Schultz [facility] Start: 04-23-2023 End: 04-23-2023 ambulatory Sridevi Schultz Other [email or web address] Other Start: 04-23-2023 Telephone encounter Sridevi Schultz [facility] Start: 02-07-2023 End: 02-07-2023 ambulatory Sridevi Schultz Other [email or web address] Other Start: 02-07-2023 Telephone encounter Sridevi Schultz [facility] Start: 02-04-2023 End: 02-04-2023 ambulatory Sridevi Florentino Other [email or web address] Other Start: 02-04-2023 Telephone encounter Sridevi Schultz [facility] Start: 01-28-2023 End: 01-28-2023 ambulatory Sridevi Florentino Other [email or web address] Other Start: 01-28-2023 Telephone encounter Sridevi Schultz [facility] Start: 01-24-2023 End: 01-24-2023 ambulatory Sridevi Florentino Other [email or web address] Other Start: 01-24-2023 Telephone encounter Sridevi Schultz [facility] Start: 01-23-2023 End: 01-23-2023 ambulatory Sridevi Schultz Other [email or web address] Other Start: 01-23-2023 Telephone encounter Sridevi Schultz [facility] Start: 12-12-2022 End: 12-12-2022 ambulatory Sridevi Florentino Other [email or web address] Other Start: 12-12-2022 Telephone encounter Sridevi Schultz [facility] Start: 12-03-2022 End: 12-03-2022 ambulatory Sridevi Schultz Other [email or web address] Other Start: 12-03-2022 Telephone encounter Sridevi Schultz [facility] Start: 11-08-2022 (Televisit) Televisit Sridevi Schultz [facility] Start: 11-08-2022 End: 11-08-2022 ambulatory Sridevi Schultz Other [email or web address] Other Start: 07-22-2022 End: 07-23-[address] SRIDEVI SCHULTZ Facility:[facility] Start: 06-21-2022 End: 06-21-2022 ambulatory Sunday Puma Other [email or web address] Other Start: 06-21-2022 Telephone encounter Sunday Puma [facility] Start: 05-14-2022 End: 05-14-2022 ambulatory Sunday Puma Other [email or web address] Other Start: 05-14-2022 Telephone encounter Sunday Puma [facility] Start: 05-06-2022 End: 05-06-2022 ambulatory Sunday Puma Other [email or web address] Other Start: 05-06-2022 Telephone encounter Sunday Puma [facility] Start: 02-04-2022 End: 02-04-[address] SRIDEVI SCHULTZ Facility:[facility] Procedures Date Procedure Procedure Detail Performing Clinician Screening for malign ant neoplasm of breast Sridevi Schultz Other Payers Date Payer Category Payer Unknown [id number] 1975 Unknown [id number] 1957 [place] [id number] Self-pay Self Pay [id number] Social History Date Type Detail Facility Sex Assigned At [email or web address] Other Start: 06-12-2023 Tobacco smoking stat us NHIS Never smoked tobacco (finding) [facility] Start: 1975 Sex Assigned At Female F [facility] Clinical Notes 05-06-2022 to 11-14-2023 Note Date & Type Note Facility 11-14-2023 Evaluation note Encounter Date Diagnosis Assessment Notes Nov, Acute COVID-19 (ICD-10 - U07.1) Discussed quarantine protocol and symptom management. Pt agrees to paxlovid. Rx sent to pharmacy. [email or web address] Other 01-02-2024 Evaluation note* Encounter Date Diagnosis Assessment Notes Treatment Notes Treatment Clinical Notes Oct, Major depressive disorder, recurrent, moderate (ICD-10 - F33.1) [email or web address] Other 12-29-2023 Evaluation note* Encounter Date Diagnosis Assessment Notes Treatment Notes Treatment Clinical Notes Sep, Major depressive disorder, recurrent, moderate (ICD-10 - F33.1) [email or web address] Other 12-26-2023 Evaluation note* Encounter Date Diagnosis Assessment Notes Treatment Notes Treatment Clinical Notes Sep, Major depressive disorder, recurrent, moderate (ICD-10 - F33.1) [email or web address] Other 12-01-2023 Evaluation note* Encounter Date Diagnosis Assessment Notes Treatment Notes Treatment Clinical Notes Sep, Major depressive disorder, recurrent, moderate (ICD-10 - F33.1) [email or web address] Other 10-27-2023 Evaluation note* Encounter Date Diagnosis Assessment Notes Treatment Notes Treatment Clinical Notes Jul, Major depressive disorder, recurrent, moderate (ICD-10 - F33.1) [email or web address] Other 10-12-2023 Evaluation note* Encounter Date Diagnosis Assessment Notes Treatment Notes Treatment Clinical Notes Jul, Major depressive disorder, recurrent, moderate (ICD-10 - F33.1) [email or web address] Other 09-26-2023 Evaluation note* Encounter Date Diagnosis Assessment Notes Treatment Notes Treatment Clinical Notes Jun, Major depressive disorder, recurrent, moderate (ICD-10 - F33.1) [email or web address] Other 09-01-2023 Evaluation note* Encounter Date Diagnosis Assessment Notes Treatment Notes Treatment Clinical Notes Jun, Major depressive disorder, recurrent, moderate (ICD-10 - F33.1) [email or web address] Other 08-31-2023 Evaluation note* Encounter Date Diagnosis Assessment Notes Treatment Notes Treatment Clinical Notes May, Major depressive disorder, recurrent, moderate (ICD-10 - F33.1) [email or web address] Other 08-31-2023 Evaluation note* Encounter Date Diagnosis Assessment Notes Treatment Notes Treatment Clinical Notes May, Cervical pain (neck) (ICD-10 - M54.2) Dylan relates this pain similar to her neck issues in the past. Check xray. She will contact her neurosurgeon. Declines PT. Recommend heat therapy for pain [email or web address] Other 08-24-2023 Evaluation note* Encounter Date Diagnosis Assessment Notes Treatment Notes Treatment Clinical Notes May, Major depressive disorder, recurrent, moderate (ICD-10 - F33.1) [email or web address] Other 07-12-2023 Evaluation note* Encounter Date Diagnosis Assessment Notes Treatment Notes Treatment Clinical Notes Apr, Major depressive disorder, recurrent, moderate (ICD-10 - F33.1) [email or web address] Other 04-28-2023 Evaluation note* Encounter Date Diagnosis Assessment Notes Treatment Notes Treatment Clinical Notes Jan, Major depressive disorder, recurrent, moderate (ICD-10 - F33.1) [email or web address] Other 04-25-2023 Evaluation note* Encounter Date Diagnosis Assessment Notes Treatment Notes Treatment Clinical Notes Jan, Major depressive disorder, recurrent, moderate (ICD-10 - F33.1) [email or web address] Other 04-18-2023 Evaluation note* Encounter Date Diagnosis Assessment Notes Treatment Notes Treatment Clinical Notes Jan, Major depressive disorder, recurrent, moderate (ICD-10 - F33.1) [email or web address] Other 04-14-2023 Evaluation note* Encounter Date Diagnosis Assessment Notes Treatment Notes Treatment Clinical Notes Jan, Major depressive disorder, recurrent, moderate (ICD-10 - F33.1) [email or web address] Other 04-13-2023 Evaluation note* Encounter Date Diagnosis Assessment Notes Treatment Notes Treatment Clinical Notes Jan, Major depressive disorder, recurrent, moderate (ICD-10 - F33.1) [email or web address] Other 03-02-2023 Evaluation note* Encounter Date Diagnosis Assessment Notes Treatment Notes Treatment Clinical Notes Dec, Acute non-recurrent maxillary sinusitis (ICD-10 - J01.00) [email or web address] Other 02-21-2023 Evaluation note* Encounter Date Diagnosis Assessment Notes Treatment Notes Treatment Clinical Notes Nov, Major depressive disorder, recurrent, moderate (ICD-10 - F33.1) [email or web address] Other 01-27-2023 Evaluation note* Encounter Date Diagnosis Assessment Notes Treatment Notes Treatment Clinical Notes Oct, Acute non-recurrent maxillary sinusitis (ICD-10 - J01.00) Sinus infections can be triggered by a secondary infection from a viral URI or even seasonal allergies. Take medications as directed. Use saline nasal spray prior to presciption nasal spray. Take medications as directed, and complete all doses of medication even if you start to feel better. [email or web address] Other 09-09-2022 Evaluation note* Encounter Date Diagnosis Assessment Notes Treatment Notes Treatment Clinical Notes Jun, Major depressive disorder, recurrent, moderate (ICD-10 - F33.1) [email or web address] Other 08-02-2022 Evaluation note* Encounter Date Diagnosis Assessment Notes Treatment Notes Treatment Clinical Notes May, Major depressive disorder, recurrent, moderate (ICD-10 - F33.1) [email or web address] Other [id number] Evaluation note* Encounter Date Diagnosis Assessment Notes Treatment Notes Treatment Clinical Notes Apr, Major depressive disorder, recurrent, moderate (ICD-10 - F33.1) [email or web address] Other Evaluation noteNo InformationNort [employer] Other Evaluation noteNo assessment information available [facility] Work Phone: Evaluation note* Diagnosis Onset Date Resolution Status Anxiety and depression acute Dysuria acute Dysuria acute [facility] Work Phone: History general Narrative - Reported* Type Description Date Medical History cholecystecomy Medical History lamenectomy 2019 Medical History gastric sleeve Surgical History cholecystectomy Surgical History cholecystectomy, gastric sleeve Surgical History Gastric Sleeve Hospitalization History see above [email or web address] Other [facility] general Narrative - Reported* Type Description Date Medical History BMI 38.0-38.9,adult Medical History Pharyngitis Medical History Left shoulder pain Medical History Trapezius muscle spasm Medical History Complicated migraine Medical History Dental infection Medical History 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 Medical History Yeast infection of the vagina Medical History Left sided chest pain Medical History Family history of cardiac disord er in father Medical History Right otitis media with effusion Medical History Cervical pain Medical History Lumbar pain Medical History Gastro-esophageal reflux disease without esophagitis Medical History Anxiety and depression Medical History Nausea Medical History Dysuria Surgical History cholecystectomy Surgical History cholecystectomy, gastric sleeve Surgical History Gastric Sleeve Surgical History LUMBAR I&D OF WOUND INFECTION Surgical History RIGHT L4-5 LUMBAR LA MINECTOMY WITH DECOMPRESSIVE NERVE ROOT FOAMINOTOMY Hospitalization History see above [email or web address] Other [facility] Narrative - Reported* Type Description Date Medical History BMI 38.0-38.9,adult Medical History Pharyngitis Medical History Left shoulder pain Medical History Trapezius muscle spasm Medical History Complicated migraine Medical History Dental infection Medical History 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 Medical History Yeast infection of the vagina Medical History Left sided chest pain Medical History Family history of cardiac disord er in father Medical History Right otitis media with effusion Medical History Cervical pain Medical History Lumbar pain Medical History Gastro-esophageal reflux disease without esophagitis Medical History Anxiety and depression Medical History Nausea Medical History Dysuria Surgical History cholecystectomy Surgical History cholecystectomy, gastric sleeve Surgical History Gastric Sleeve Surgical History LUMBAR I&D OF WOUND INFECTION Surgical History RIGHT L4-5 LUMBAR LA MINECTOMY WITH DECOMPRESSIVE NERVE ROOT FOAMINOTOMY Surgical History Cervical surgery (Dr. Julito tabares) Hospitalization History see above [email or web address] Other Summary Purpose Family History Relationship Condition Age at Onset Recorded Date/T tex father Family history of mental disorder Unknown Malignant neoplasm Unknown High blood cholesterol Unknown Hypertension Unknown Heart disease Unknown Not Specified Malignant neoplasm Unknown Relationship Condition Age at Onset Recorded Date/T tex father Family history of mental disorder Unknown Malignant neoplasm Unknown High blood cholesterol Unknown Hypertension Unknown Heart disease Unknown mother Malignant neoplasm Unknown Advance Directives Advance Directive Response Recorded Date/ Time Advance Directives No November 19, 2020 8:18pm Chief Complaint and Reason for Visit Chief Complaint Amb Documentation Amb Documentation discuss adipex Chief Complaint back pain, nausea, p ainful urination Chief Complaint back pain, nausea, p ainful urination UA, pressure feeling Reason for Visit Anxiety and depressi on Dysuria Dysuria Additional Source Comments REASON FOR VISIT (unrecogniz ed section and content) refillrefillrefillSINUS INFE CTIONprescription refillmessagerefillmessageNo InformationrefillrefillNeeds Refill Todayrefillrefillmed refillrefillShoulder painrefillrefillREFILLRefillrefillerrorRefillrefillrefillCOVID Positive- [phone] INFORMATION SOURCE (unrecogn ized section and content) DATE CREATED AUTHOR 07/23/2022 [facility] Care Teams (unrecognized sec tion and content) Team Status: Active Member Role Status Dates Sridevi Schultz MD Primary Care Provider Active Team Status: Inactive Member Role Status Dates Sridevi Schultz MD Primary Care Provide r, Attending Provider Active Start: May 31, 2024 End: May 31, 2024 Team Status: Active Member Role Status Dates Sridevi Schultz MD Primary Care Provider Active Start: December 11, 2023 ELENA Donohue Attending Provider Active Start : December 11, 2023 Team Status: Active Member Role Status Dates Sridevi Schultz MD Primary Care Provider Active Start: December 22, 2023 ELENA Donohue Attending Provider Active Start : December 22, 2023 Team Status: Inactive Member Role Status Dates Sridevi Schultz MD Primary Care Provide r, Attending Provider Active Start: January 15, 2024 End: January 15, 2024 Team Status: Inactive Member Role Status Dates Sridevi Schultz MD Primary Care Provide r, Attending Provider Active Start: June 10, 2024 End: June 10, 2024 Goals (unrecognized section and content) Goals may be documented in a n alternate section FOR RECORDS PERTAINING TO PATIENTS WHO ARE OR HAVE BEEN ENROLLED IN A CHEMICAL DEPENDENCY/SUBSTANCEABUSE PROGRAM, SOME INFORMATION MAY BE OMITTED. This clinical summary was aggregated from multiple sources. Caution should be exercised in using it in the provision of clinical care. This summary normalizes information from multiple sources, and as a consequence, information in this document may materially change the coding, format and clinical context of patient data. In addition, data may be omitted in some cases. CLINICAL DECISIONS SHOULD BE BASED ON THE PRIMARY CLINICAL RECORDS. [facility] [employer] provides no warranty or guarantee of the accuracy or completeness of information in this document.
== END 2024-08-17 14:01 | disposition home or self-care (01) ==
LOC: RAD 14:01
PROVIDERS: PCP Family Medicine; Visit Provider Family Medicine
DX: M54.12 Radiculopathy, cervical region (principal); M50.30 Other cervical disc degeneration, unspecified cervical region
CPT/HCPCS: 72050; 73030

== ENCOUNTER 2025-04-02 07:33 | Outpatient (OUT) | payer BC, SELFPAY ==
--- OUTSIDE RECORDS SUMMARY | 2017-04-10 07:00 | XMS_ITS | Continuity of Care Document ---
Author Organization [employer] [facility] Address [address] [facility] [place] [address] Phone Care Team Providers Care Neck Skewer Name Role Phone Unavailable Unavailable Unavailable Procedures Procedure Date POSTOP FOLLOW-UP VISIT POSTOP FOLLOW-UP VISIT Sleeve Gastrectomy LAP SLEEVE GASTRECTOMY OFFICE/OUTPATIENT VISIT, [facility] OFFICE/OUTPATIENT VISIT, [facility] Advance Directives Directive Yes / No Effective Date File Name No Information Encounters Encounter Description Practice Location Reason(s) For Visit Diagnoses Date Provider Providers Copied on Encounter [facility] [employer] [facility], [address] [place] [address] B, [place], [place], [id number], [place] tel:[phone] [facility] [facility] No Information No [facility] [employer] [facility], [address] [place] [address] B, [place], [place], [id number], [place] tel:[phone] [facility] No Information No Information [employer] [facility], [address] [place] [address] B, [place], [place], [id number], [place] tel:[phone] [facility] IP No Information No [facility] [employer] [facility], [address] [place] [address] B, [place], [place], [id number], [place] tel:[phone] [facility] IP No Information Ezekiel Montoya. [facility] [address] [facility] [address], [place], [place], [id number], [place]. tel:[phone] Referring Provider: Jan Finley, [address] [facility] [address], [place], [address] . tel:[phone] OFFICE/OUTPAT IENT VISIT, [facility] [employer] [facility], [address] [place] [address] B, [place], [place], [id number], tel:[phone] [facility] No Information Ezekiel Montoya. [address] [place] [address], [place], [id number], [place]. tel:[phone] Referring Provider: Jan Finley, [address] [place] [address] 222, [place], [address] . tel:[phone] OFFICE/OUTPAT IENT VISIT, [facility] [employer] [facility], [address] [place] [address] B, [place], [place], [id number], tel:[phone] [facility] No Information Ezekiel Montoya. [address] [place] [address], [id number], [place]. tel:[phone] Referring Provider: Jan Finley, [address] [facility] [address], [place], [address] . tel:[phone] Family History Family Member Type Diagnosis Age At Onset No Information Payers Payer name Insurance type Covered green party ID Lilian murphy(ashlyn SORENSON [id number] Social History Type Description Quantity Date Captured [...]
--- OUTSIDE RECORDS SUMMARY | 2025-04-02 07:35 | XMS_ITS | Clinical Summary ---
Author Organization The [facility] Address [address] [place] [address] Care Team Providers Care Rim Turning Finisher Name Role Phone Unavailable Primary Care Provider Unavailabl e Social History Tobacco Use Types Packs/Day Years Used Date Smoking Tobacco: Never Assessed Comments Unknown Sex and Gender Information Value Date Recorded Sex Assigned at Not on file Legal Sex Female 12:27 AM EDT Gender Identity Not on file Sexual Orientation Not on file Last Filed Vital Signs Vital Sign Reading Time Taken Comments Blood Pressure 124/64 05/08/2020 10:39 AM EDT Pulse - - Temperature - - Respiratory Rate - - Oxygen Saturation 99% 05/08/2020 10:31 AM EDT Inhaled Oxygen Concentration - - Weight 111 kg (244 lb) 05/08/2020 10:29 AM EDT Height 167.6 cm (5' 6 ) 05/08/2020 10:30 AM EDT Body Mass Index 39.38 05/08/2020 10:29 AM EDT Plan of Treatment Not on file
--- OUTSIDE RECORDS SUMMARY | 2025-04-02 07:35 | XMS_ITS | Referral Summary ---
Author Organization The [facility] Address [address] [place] [address] Care Team Providers Care Outcomes Analyst Name Role Phone Unavailable Primary Care Provider [...]
--- OUTSIDE RECORDS SUMMARY | 2025-04-02 07:35 | XMS_ITS | Encounter Summary ---
Author Organization [employer] Address [id number] [address] [place] [address] Care Team Providers Care Small Kick Press Operator Name Role Phone Sridevi Schultz MD Primary Care Provider [phone] Encounter Details Date Type Department Care Team (Latest Contact Info) Description 03/24/2025 Travel Social History Tobacco Use Types Packs/Day Years Used Date Smoking Tobacco: Former Smokeless Tobacco: Never Alcohol Use Standard Drinks/Week Comments Yes 0 (1 standard drink = 0.6 oz pur e alcohol) Childcare Answer Date Recorded Childcare Unknown 03/24/2019 Employment Answer Date Recorded Employment Unknown 03/24/2019 Hunger Screening Answer Date Recorded Within the past 12 months we worried whether our food would run out before we got money to buy more. Never True 12/03/2024 Within the past 12 months th e food we bought just didn't last and we didn't have money to get more. Never True 12/03/2024 Comments No Sex and Gender Information Value Date Recorded Sex Assigned at Not on file Legal Sex Female 11:33 AM EDT Gender Identity Not on file Sexual Orientation Not on file documented as of this encounter Plan of Treatment Upcoming Encounters Date Type Department Care Team (Late st Contact Info) Description 04/14/2025 10:45 AM EDT Office Visit [facility] [address] [place] [address] Peggy Arteaga APRN-CNM [address] [place] [address] documented as of this encounter Visit Diagnoses Not on filedocumented in this encounter Care Teams Small Kick Press Operator Relationship Specialty Start Date End Date Sridevi Schultz MD [facility] [place] [address] PCP - General Family Medicine 02/18/21 documented as of this encounter
--- OUTSIDE RECORDS SUMMARY | 2025-04-02 07:35 | XMS_ITS | Clinical Summary ---
Author Organization [employer] Address [id number] [address] [place] [address] Care Team Providers Care Curing Machine Operator Name Role Phone Sridevi Schultz MD Primary Care Provider [phone] Allergies Active Allergy Reactions Criticality Noted Date Comments Amoxicillin-Pot Clavulanate Hives 02/19/20 21 Medications traZODone (DESYREL) 150 mg tablet Take 150 mg by mouth nightly. Active gabapentin (NEURONTIN) 300 mg capsule Take 300 mg by mouth 2 (two) times a day. Active buPROPion SR (WELLBUTRIN SR) 100 mg 12 hr tablet Take 1 tablet (100 mg total) by mouth in the morning and 1 tablet (100 mg total) before bedtime. Active brexpiprazole (REXULTI) 1 mg tablet Take 1 tablet (1 mg total) by mouth in the morning. Active vortioxetine (TRINTELLIX) 5 mg tablet Take 1 tablet (5 mg total) by mouth in the morning. Active benzonatate (TESSALON PERLES) 100 mg capsule Take 1 capsule (100 mg total) by mouth every 8 (eight) hours. 21 capsule 12/03/2024 Active Encounters Date Type Department Care Team Description 03/24/2025 Travel from Last 3 Months Social History Tobacco Use Types Packs/Day Years [...] Sign Reading Time Taken Comments Blood Pressure 113/64 12/03/2024 8:15 PM EST Pulse 71 12/03/2024 8:15 PM EST Temperature 36.8 C (98.3 F) 12/03/2024 5:23 PM EST Respiratory Rate 18 12/03/2024 8:15 PM EST Oxygen Saturation 99% 12/03/2024 8:15 PM EST Inhaled Oxygen Concentration - - Weight 99.8 kg (220 lb) 12/03/2024 5:23 PM EST Height 167.6 cm (5' 6 ) 02/18/2021 4:19 AM EDT Body Mass Index 35.51 02/18/2021 4:19 AM EDT Plan of Treatment Upcoming Encounters Date Type Department Care Team (Late st Contact Info) Description 04/14/2025 10:45 AM EDT Office Visit [facility] [address] [place] [id number] Peggy Arteaga APRN-YESSICA [address] [place] [address] Health Maintenance Due Date Last Done Comments Depression Screening 1989 Tobacco Screening 1989 Pap Smear 1998 COVID-19 Vaccine ( season) 2024, 08/11/2021 Influenza Vaccine 06/13/2025 Adult BMI Screening 12/03/2025 12/03/2024 DTaP,Tdap and Td Vaccines (2 - Td or Tdap) 05/31/2029 05/31/2019 Medical Devices Not on file Insurance ANTHEM Care Teams Curing Machine Operator Relationship Specialty Start Date End Date Sridevi Schultz MD [facility] [place] [address] PCP - General Family Medicine 02/18/21
--- OUTSIDE RECORDS SUMMARY | 2025-04-02 07:36 | XMS_ITS | CCD ---
Author Organization [facility] Care Team Providers Care Hot Pipe Gauger Name Role Phone Sunday Bartholomew Unavailable DR SRIDEVI GOOD Primary Care Unavailable PAY, DR BURCH Admitting Unavailable PAY, DR BURCH Attending Unavailable PAY, DR BURCH Consulting Unavailable FABRIZIO DYKES Consulting Unavailable MARILU CALZADA Consulting Unavailable FLORENTINO, DR SRIDEVI Robles Admitting Unavailable GOOD, DR SRIDEVI Robles Attending Unavailable FLORENTINO, DR SRIDEVI Robles Primary Care Unavailable MILLBROOK, DR ISRA Licona Consulting Unavailable FLORENTINO, DR SRIDEVI Robles Consulting Unavailable Sridevi Good Unavailable MD Sridevi Good Attending Provider Unavailable Primary Care Provider UnavailAylin Benjamin MD Primary Care Provider Sridevi Good MD Attending Provider [phone] Sridevi Good MD Primary Care Provider Mikki Mendez APRN Attending Provider ARTHUR ROLDAN Attending Unavailable GISELLE, ZACH Referring Unavailable KELBLEY, KIMI Attending Unavailable GISELLE, ZACH Referring Unavailable BLACKSTON, BEBE T Attending Unavailable GISELLE, ZACH Referring Unavailable KELBLEY, KIMI Attending Unavailable GISELLE, ZACH Referring Unavailable BLACKSTON, BEBE T Attending Unavailable GISELLE, ZACH Referring Unavailable KELBLEY, KIMI Attending Unavailable GISELLE, ZACH Referring Unavailable KELBLEY, KIMI Attending Unavailable GISELLE, ZACH Referring Unavailable KELBLEY, KIMI Attending Unavailable GISELLE, ZACH Referring Unavailable KELBLEY, KIMI Attending Unavailable GISELLE, ZACH Referring Unavailable KELBLEY, KIMI Attending Unavailable GISELLE, ZACH Referring Unavailable SRIDEVI GOOD Primary Care Unavailable HUSSAIN BENJAMIN Attending UnavailSridevi Valladares MD Primary Care Provider Mikki Mendez APRN Attending Provider Zach Celaya DO Attending Provider Sridevi Good MD Primary Care Provider Sridevi Good Primary Care Unavailable Giselle, Zach Staley Attending Unavailable Giselle, Zach A Admitting Unavailable Sridevi Good Primary Care Unavailable Giselle, Zach Luís Admitting Unavailable Zach Celaya Attending Unavailable Mikki Mendez Attending UnavailSridevi Valladares Primary Care Unavailable Mikki Mendez Admitting UnavailSridevi Valladares Admitting Unavailable Sridevi Good Attending Unavailable Florentino, Sridevi Robles Primary Care Unavailable Giselle, Zach A Admitting Unavailable Giselle, Zach Staley Attending Unavailable Sridevi Good Primary Care Unavailable Giselle, Zach A Admitting Unavailable Zach Celaya Attending Unavailable Allergies Allergy Classification Reported Allergen(s) Allergy Type Date of Onset Reaction(s) Facility (20 sources) Amoxicillin Drug Allergy 01-15-20 24 Unknown, Unknown Reaction, Palpitations [facility] (20 sources) Amoxicillin / Clavulanate; Translations: [Augmentin] Drug Allergy Unknown [facility] [place] Repository (1 source) Amoxicillin Drug Allergy 02-01-20 14 [facility] [place] Repository (14 sources) Pseudoephedrine Drug Allergy Unknown [facility] [employer] Other (1 source) Allergies Reconciled Propensity to adverse reactions Unknown [employer] Other (1 source) patient allergy list reviewed by nurse or physicia Propensity to adverse reactions 03-17-20 19 Comment:Done [employer] Other (17 sources) Clavulanate; Translations: [clavulanic acid] Drug Allergy 01-15-20 24 Unknown Reaction, Palpitations [facility] (12 sources) 12 Hour Decongestant Allergy to substance 01-14-20 24 Hives [facility] (1 source) AMOXICILLIN-POT CLAVULANATE; Translations: [AMOXICILLIN-POT CLAVULANATE] Propensity to adverse reactions to drug (disorder) 02-19-20 [facility] Repository (1 source) Amoxicillin Drug Allergy 03-23-20 [facility] Repository Medications Current Medications Medication Drug Class(es) Dates Sig (Normalized) Sig (Original) brexpiprazole 0.25 mg oral tablet (20 sources) Atypical Antipsychotic Start: 01-26-2025 take 1 tablet by mouth once daily in the evening Brexpiprazole (Rexulti) 0.25 mg tablet Active 0.25 MG PO Every evening January 26, 2025 12:00am TAKE 1 TABLET BY MOUTH DAILY Start: 12-24-2024 End: 01-26-2025 take 1 tablet by mouth once daily Brexpiprazole (Rexulti) 0.25 mg tablet Discontinued 0 .ROUTE .COMPLEX December 24, 2024 8:52am January 26, 2025 4:02pm TAKE 1 TABLET BY MOUTH DAILY Start: 12-11-2023 End: 12-24-2024 take 1 tablet by mouth once daily Brexpiprazole (Rexulti) 0.25 mg tablet Discontinued 0.25 MG PO Daily December 11, 2023 1:55pm March 25, 2024 3:05pm take 1 tablet by michelle th every twenty-four hours Rexulti 0.25 MG 1 tablet Orally Once a day for 90 days Active 24 hr buPROPion hydrochloride 300 mg extended release oral tablet (20 sources) Aminoketone Start: 01-26-2025 take 1 tablet by mouth once daily in the morning Bupropion Hcl 300 mg tablet extended release 24 hr Active 300 MG PO Every morning January 26, 2025 12:00am TAKE 1 TABLET BY MOUTH EVERY DAY Start: 04-19-2024 End: 01-26-2025 take 1 tablet by mouth once daily Bupropion Hcl 300 mg tablet extended release 24 hr Discontinued 0 .ROUTE .COMPLEX October 21, 2024 9:21am January 26, 2025 4:02pm TAKE 1 TABLET BY MOUTH EVERY DAY Start: 01-14-2024 End: 04-19-2024 take 1 tablet by mouth once daily Bupropion Hcl 300 mg tablet extended release 24 hr Discontinued 300 MG PO Daily January 14, 2024 12:00am April 19, 2024 10:23am Start: 11-19-2020 End: 01-15-2024 take 1 tablet by mouth once daily Bupropion Hcl 100 mg tablet sustained-release 12 hr Discontinued 100 MG PO Daily November 19, 2020 [...] Once a day for 30 days Not-Taking lactobacillus acidophilus [id number] unt oral capsule (4 sources) Start: 01-26-2025 take 10 capsules by mouth once daily Lactobacillus Acidophilus (Probiotic) 10 billion cell capsule Active 100 MMU CELLS PO Daily January 26, 2025 12:00am Nhnnbejq-Pln-Leke-Fa -Vit K-Lut ([facility] [employer]) 8 mg iron-400 mcg-50 mcg tablet (4 sources) Start: 01-26-2025 take 1 tablet by mouth once daily Wagvzpyo-Zmw-Aqth-F a-Vit K-Lut ([facility]) 8 mg iron-400 mcg-50 mcg tablet Active 1 TAB PO Daily January 26, 2025 12:00am paxlovid (300/100) 20 x 150 mg & 10 x 100mg tablet therapy pack (1 source) Start: 11-14-2023 take 3 tablets by mouth every twelve hours Paxlovid (300/100) 20 x 150 MG & 10 x 100MG 3 tablets Orally Twice a day for 5 day(s) Nov, Active predniSONE 20 mg oral tablet (13 sources) Start: 06-12-2023 take 2 tablets by mouth every twenty-four hours predniSONE 20 MG 2 tablets Orally Once a day for 5 days May, Active traZODone hydrochloride 150 mg oral tablet (20 sources) Serotonin Reuptake Inhibitor Start: 08-18-2024 take 1 tablet by mouth once daily at bedtime Trazodone 150 mg tablet Active 150 MG PO Daily at bedtime 90 August 18, 2024 2:33pm Start: 12-10-2023 End: 08-18-2024 Trazodone 150 mg tablet Disc ontinued 0 .ROUTE .COMPLEX 135 December 10, 2023 10:34am August 18, 2024 2:33pm TAKE 1 AND 1/2 TABLETS BY MOUTH EVERY DAY AT BEDTIME Start: 12-10-2023 Trazodone Acti ve 0 .ROUTE .COMPLEX 135 December 10, 2023 9:34am TAKE 1 AND 1/2 TABLETS BY MOUTH EVERY DAY AT BEDTIME Start: 11-19-2020 End: 12-10-2023 take 1 tablet by mouth once daily at bedtime Trazodone 150 mg Tablet Discontinued 150 MG PO Daily at bedtime November 19, 2020 1:00am December 10, 2023 10:34am take 1.5 tablets by mouth once daily at bedtime traZODone HCl 150 MG TAKE 1.5 TABLETS BY MOUTH EVERY DAY AT BEDTIME for 90 Active vortioxetine 20 mg oral tablet (20 sources) Start: 11-19-2020 End: 02-25-2025 take 1 tablet by mouth once daily in the morning Vortioxetine (Trintellix) 20 mg tablet Active 20 MG PO Every morning 90 February 25, 2025 8:31am Completed/Discontinued Medications Medication Drug Class(es) Dates Sig (Normalized) Sig (Original) acetaminophen 500 mg oral tablet (7 sources) Start: 02-08-2025 End: 03-15-2025 take 1 tablet by mouth every six hours as needed for pain Acetaminophen 500 mg tablet Discontinued 500 MG PO Q6H as needed for Pain February 08, 2025 12:00am March 15, 2025 11:06am DO NOT RECONCILE UNTIL DOS 02/09/25 TO BE USED POST OP Start: 01-26-2025 take 2 tablets by mo uth every six hours as needed for pain Acetaminophen (Acetaminophen Extra Strength) 500 mg tablet Active 1000 MG PO Every 6 hours as needed for fever or pain January 26, 2025 12:00am ALPRAZolam 0.25 mg oral tablet (20 sources) Benzodiazepine Start: 11-19-2020 End: 08-17-2024 take 1 tablet by mouth twice daily as needed for anxiety Alprazolam 0.25 mg Tablet Discontinued 0.25 MG PO Twice daily as needed for Anxiety November 19, 2020 1:00am August 17, 2024 11:25am azithromycin 250 mg oral tablet (20 sources) Macrolide Antimicrobial Start: 12-02-2023 End: 01-14-2024 Azithromycin Discontinued 0 PO .COMPLEX 6 December 02, 2023 1:18pm January 14, 2024 11:16am For 250 mg dose pack: take 500 mg today (day 1), then 250 mg for 4 days (days 2-5) PO Start: 11-25-2023 End: 01-14-2024 Azithromycin 250 mg tablet D iscontinued 0 PO .COMPLEX 6 December 02, 2023 2:18pm January 14, 2024 12:16pm For 250 mg dose pack: take 500 mg today (day 1), then 250 mg for 4 days (days 2-5) PO Start: 11-25-2023 End: 12-02-2023 Azithromycin Discontinued 0 PO .COMPLEX November 25, 2023 12:00am December 02, 2023 1:18pm For 250 mg dose pack: take 500 mg today (day 1), then 250 mg for 4 days (days 2-5) PO Start: 11-25-2023 End: 12-02-2023 Azithromycin Discontinued 0 PO .COMPLEX November 25, 2023 1:00am December 02, 2023 2:18pm For 250 mg dose pack: take 500 mg today (day 1), then 250 mg for 4 days (days 2-5) PO docusate sodium 100 mg oral capsule (3 sources) Start: 02-08-2025 End: 02-22-2025 take 1 capsule by mouth twice daily as needed for constipation Docusate Sodium (Colace) 100 mg capsule Discontinued 100 MG PO Twice daily as needed for Constipation 01 08February 08, 2025 12:00am February 22, 2025 2:46pm DO NOT RECONCILE UNTIL DOS 02/09/25 TO BE USED POST OP fluconazole 150 mg oral tablet (15 sources) Azole Antifungal Start: 05-12-2024 End: 05-31-2024 Fluconazole 150 mg tablet Discontinued 150 MG PO Q3D May 12, 2024 12:00am May 31, 2024 10:37am fludrocortisone acetate 0.1 mg oral tablet (16 sources) Start: 11-19-2020 End: 01-15-2024 take 1 tablet by mouth once daily Fludrocortisone 0.1 mg Tablet Discontinued 0.1 MG PO Daily November 19, 2020 1:00am January 15, 2024 12:06pm fluticasone propionate 0.05 mg/actuat metered dose nasal spray (14 sources) Corticosteroid Start: 05-10-2021 take 1 spray(s) nasal route once daily Flonase Allergy Relief 50 MCG/ACT 1 spray in each nostril Nasally Once a day for 14 day(s) Apr, Not-Taking gabapentin 300 mg oral capsule (20 sources) Anti-epileptic Agent Start: 08-10-2024 End: 12-10-2024 take 1 capsule by mouth three times daily Gabapentin 300 mg capsule Discontinued 300 MG PO Three times daily November 14, 2024 8:33am December 10, 2024 1:10pm Start: 11-19-2020 End: 08-10-2024 Gabapentin 300 mg capsule Discontinued 300 MG PO Three times daily May 31, 2024 10:54am August 10, 2024 10:51am 1 po qam, 1 po q noon, 2 po whs Start: 11-19-2020 End: 01-15-2024 take 2 capsules by mouth once daily at bedtime Gabapentin 300 mg capsule Discontinued 600 MG PO Daily at bedtime November 19, 2020 1:00am January 15, 2024 12:06pm Start: 11-19-2020 End: 01-15-2024 take 600 mg by mouth once daily at bedtime Gabapentin Discontinued 600 MG PO Daily at bedtime November 19, 2020 12:00am January 15, 2024 11:06am Gabapentin 300 M G 1 capsule Orally 1 po qam, 1 po q noon and 2 po qhs for 30 days f41.1 Active take 1 capsule by [facility] every six hours Gabapentin 300 MG 1 capsule Orally four times a day for 90 days f41.1 Active ibuprofen 200 mg oral tablet (11 sources) Nonsteroidal Anti-inflammatory Drug Start: 09-13-2024 End: 01-26-2025 take 1 tablet by mouth every six hours as needed for pain Ibuprofen (Advil) 200 mg tablet Discontinued 200 MG PO Every 6 hours as needed for fever or pain September 13, 2024 1:00am January 26, 2025 4:02pm Leptisense (16 sources) Start: 11-19-2020 End: 01-15-2024 take 1 capsule by mouth once daily Leptisense Discontinued 1 CAP PO Daily November 19, 2020 12:00am January 15, 2024 11:07am Start: 11-19-2020 End: 01-15-2024 take 1 capsule by mouth once daily Leptisense Discontinued 1 CAP PO Daily November 19, 2020 1:00am January 15, 2024 12:07pm meloxicam 15 mg oral tablet (3 sources) Nonsteroidal Anti-inflammatory Drug Start: 02-08-2025 End: 02-22-2025 take 1 tablet by mouth once daily Meloxicam 15 mg tablet Discontinued 15 MG PO daily February 08, 2025 12:00am February 22, 2025 2:46pm DO NOT RECONCILE UNTIL DOS 02/09/25 TO BE USED POST OP Nirmatrelvir-Rit onavir (16 sources) Start: 01-14-2024 End: 01-15-2024 Nirmatrelvir-Riton avir (Paxlovid) 300 mg (150 mg x 2)-100 mg tablets,dose pack Discontinued TAB PO January 13, 2024 11:00pm January 15, 2024 11:07am Start: 01-14-2024 End: 01-15-2024 Nirmatrelvir-Ritonavir (Paxl ovid) 300 mg (150 mg x 2)-100 mg tablets,dose pack Discontinued TAB PO January 14, 2024 12:00am January 15, 2024 12:07pm nitrofurantoin, macrocrystals 25 mg / nitrofurantoin, monohydrate 75 mg oral capsule (14 sources) Nitrofuran Antibacterial Start: 06-10-2024 End: 08-17-2024 take 1 capsule by mouth every twelve hours at mealtime Nitrofurantoin Monohyd/M-Cryst (Macrobid) 100 mg capsule Discontinued 100 MG PO Every 12 hours 07 17June 10, 2024 12:00am August 17, 2024 11:00am must administer with a meal/food omeprazole 40 mg delayed release oral capsule (20 sources) Proton Pump Inhibitor Start: 11-19-2020 End: 11-22-2024 take 1 capsule by mouth once daily Omeprazole 40 mg capsule,delayed release(DR/EC) Discontinued 40 MG PO Daily September 02, 2024 9:20am November 22, 2024 11:44am oseltamivir 75 mg oral capsule (9 sources) Neuraminidase Inhibitor Start: 11-22-2024 End: 01-26-2025 take 1 capsule by mouth twice daily Oseltamivir 75 mg capsule Discontinued 75 MG PO Twice daily 10 November 22, 2024 1:00am January 26, 2025 4:01pm oxyCODONE hydrochloride 5 mg oral tablet (3 sources) Opioid Agonist Start: 02-08-2025 End: 02-22-2025 take 1 tablet by mouth every six hours as needed for pain Oxycodone 5 mg tablet Discontinued 5 MG PO Q6H as needed for Pain 01 03February 08, 2025 February 22, 2025 2:47pm DO NOT RECONCILE UNTIL DOS 02/09/25 TO BE USED POST OP pantoprazole 40 mg delayed release oral tablet (20 sources) Proton Pump Inhibitor Start: 03-15-2025 End: 03-15-2025 take 1 tablet by mouth once daily Pantoprazole 40 mg tablet,delayed release (DR/EC) Discontinued 1 TAB PO Daily March 15, 2025 12:00am March 15, 2025 11:07am [employer]: TAKE 1 TABLET BY MOUTH EVERY DAY; Note: Source Status: Taking; Refills: 3; Qty: 90 Tablet; Provider: Florentino Laureano ( ) take 1 tablet by mouth once gentry y Pantoprazole Sodium 40 MG TAKE 1 TABLET BY MOUTH EVERY DAY for 90 Active phenazopyridine hydrochloride 200 mg oral tablet (15 sources) Start: 05-31-2024 End: 08-17-2024 take 1 tablet by mouth three times daily as needed for pain Phenazopyridine (Pyridium) 200 mg tablet Discontinued 200 MG PO Three times daily as needed for pain May 31, 2024 12:00am August 17, 2024 11:01am sertraline 100 mg oral tablet (16 sources) Serotonin Reuptake Inhibitor Start: 11-19-2020 End: 08-17-2024 take 1 tablet by mouth once daily Sertraline 100 mg Tablet Discontinued 100 MG PO Daily November 19, 2020 1:00am August 17, 2024 11:01am sulfamethoxazole 800 mg / trimethoprim 160 mg oral tablet (20 sources) Dihydrofolate Reductase Inhibitor Antibacterial, Sulfonamide Antimicrobial Start: 05-31-2024 End: 06-10-2024 take 1 tablet by mouth twice daily Sulfamethoxazole-Tri methoprim 800-160 mg tablet Discontinued 1 TAB PO Twice daily May 31, 2024 12:00am June 10, 2024 2:48pm Start: 11-08-2022 take 1 tablet by michelle th every twelve hours Bactrim DS 800-160 MG 1 tablet Orally Twice a day for 10 day(s) Oct, Active tiZANidine 4 mg oral tablet (20 sources) Central alpha-2 Adrenergic Agonist Start: 03-15-2025 End: 03-15-2025 take 1 tablet by mouth three times daily as needed Tizanidine 4 mg tablet Discontinued 1 TAB PO Three times daily March 15, 2025 12:00am March 15, 2025 11:07am [employer] tablet as needed Orally Three times a day; Note: Source Status: Taking; Provider: Florentino Laureano ( ) take 1 tablet by mouth every eig ht hours tiZANidine HCl 4 MG 1 tablet as needed Orally Three times a day Active Problems Active Problems Problem Classification Problem Date Documented Da te Episodic/Chronic Anxiety disorders (20 sources) Generalized anxiety disorder; Translations: [Generalized anxiety disorder] Onset: 3 01-17-2024 Chronic Chronic obstructive pulmonary disease and bronchiectasis (1 source) Bronchitis, not specified as acute or chronic; Translations: [Bronchitis, not specified as acute or chronic] Onset: Episodic Deficiency and other anemia (1 source) Anemia; Translations: [Anemia, unspecified] 03-15-2025 Episodic Deficiency and other anemia (1 source) Anemia, unspecified; Translations: [Anemia, unspecified] 03-15-2025 Episodic Disorders of teeth and jaw (20 sources) Infection of tooth; Translations: [Periapical abscess without sinus] Episodic Esophageal disorders (20 sources) Gastroesophageal reflux disease without esophagitis; Translations: [Gastro-esophageal reflux disease without esophagitis] Chronic Genitourinary symptoms and ill-defined conditions (20 sources) Dysuria; Translations: [Dysuria] 05-31-2024 Episodic Headache; including migraine (20 sources) Complicated migraine; Translations: [Migraine with aura, not intractable, without status migrainosus] Chronic Influenza (15 sources) Upper respiratory tract infection due to Influenza; Translations: [Influenza due to unidentified influenza virus with other respiratory manifestations] 11-22-2024 Episodic Influenza (1 source) Influenza Onset: 5 Mood disorders (20 sources) Moderate recurrent major depression; Translations: [Major depressive disorder, recurrent, moderate] Onset: 2 Resolved: 2 Chronic Mycoses (1 source) Candidiasis; Translations: [Candidiasis, unspecified] Episodic Nausea and vomiting (20 sources) Nausea; Translations: [Nausea] Episodic Nonspecific chest pain (20 sources) Left sided chest pain; Translations: [Chest pain, unspecified] Onset: 8 11-19-2020 Episodic Other aftercare (2 sources) Surgical follow-up; Translations: [Encounter for removal of sutures] 02-22-2025 Episodic Other aftercare (2 sources) Encounter for removal of sutures; Translations: [Encounter for removal of sutures] 02-22-2025 Episodic Other connective tissue disease (20 sources) Spasm; Translations: [Other muscle spasm] Episodic Other connective tissue disease (9 sources) Spasm of cervical paraspinous muscle; Translations: [Other muscle spasm] 09-29-2024 Episodic Other connective tissue disease (11 sources) Disorder of rotator cuff; Translations: [Unspecified rotator cuff tear or rupture of left shoulder, not specified as traumatic] 09-13-2024 Episodic Other connective tissue disease (20 sources) Unspecified rotator cuff tear or rupture of left shoulder, not specified as traumatic; Translations: [Disorders of bursae and tendons in shoulder region, unspecified] Onset: 5 09-13-2024 Episodic Other connective tissue disease (5 sources) Biceps tendinitis; Translations: [Bicipital tendinitis, left shoulder] 01-13-2025 Episodic Other connective tissue disease (5 sources) Tear of left rotator cuff; Translations: [Unspecified rotator cuff tear or rupture of left shoulder, not specified as traumatic] 01-13-2025 Episodic Other connective tissue disease (5 sources) Rotator cuff impingement syndrome; Translations: [Impingement syndrome of left shoulder] 01-13-2025 Episodic Other connective tissue disease (6 sources) Bicipital tendinitis, left shoulder; Translations: [Bicipital tenosynovitis] 01-13-2025 Episodic Other connective tissue disease (6 sources) Impingement syndrome of left shoulder; Translations: [Disorders of bursae and tendons in shoulder region, unspecified] 01-13-2025 Episodic Other gastrointestinal disorders (15 sources) History of bariatric surgical procedure; Translations: [Bariatric surgery status] 01-17-2024 Episodic Other injuries and conditions due to external causes (9 sources) Unspecified injury of right ankle, initial encounter; Translations: [Knee, leg, ankle, and foot injury] 11-11-2024 Episodic Other non-traumatic joint disorders (9 sources) Shoulder pain; Translations: [Pain in left shoulder] Episodic Other non-traumatic joint disorders (20 sources) Pain in left shoulder; Translations: [Left shoulder pain] Onset: 5 09-29-2024 Episodic Other non-traumatic joint disorders (1 source) Shoulder joint pain; Translations: [Pain in left shoulder] Episodic Other non-traumatic joint disorders (5 sources) Pain of left acromioclavicular joint; Translations: [Pain in left shoulder] 01-13-2025 Episodic Other nutritional; endocrine; and metabolic disorders [...] Chronic Other nutritional; endocrine; and metabolic disorders (20 sources) Obesity; Translations: [Obesity, unspecified] 01-17-2024 Chronic [...] Translations: [Family history of diabetes mellitus] Episodic Residual codes; unclassified (3 sources) History of arthroscopic procedure on shoulder; Translations: [Other specified postprocedural states] 02-08-2025 Episodic Residual codes; unclassified (2 sources) Other specified postprocedural states; Translations: [Other postprocedural status] 02-22-2025 Episodic Spondylosis; intervertebral disc disorders; other back problems (20 sources) Degeneration of cervical intervertebral disc; Translations: [Other cervical disc degeneration, unspecified cervical region] 09-13-2024 Chronic Spondylosis; intervertebral disc disorders; other back problems [...] Test Name Value Interpretation Reference Range Facility HCG ( test) Russ burr Ql (U)Ordered By: Zach Celaya on 02-09-2025 HCG ( test) Ql (U) Urine human chorionic gonadotropin (hCG) detection by immunoassay [facility] HCG,Urineon 02-09-2025 Beta HCG ( test) Ql (U) Negative Normal [facility] Comment on above: Result Comment: PERF ORMED BY: [facility] [address] [place] [address] PATHOLOGIST ENGINEER SERGEANT ELISHA BRANDON M.D. Performed By: #### U HCG #### [facility] [address] Alanine aminotransferase [En zymatic activity/volume] in Serum or PlasmaOrdered By: Zach Celaya on 01-26-2025 ALT [Catalytic activity/Vol] Alanine aminotransferase [Enzymatic activity/volume] in Serum or Plasma 7-52 [facility] Albumin [Mass/volume] in Ser um or Plasma by Bromocresol green (BCG) dye binding methoOrdered By: Zach Celaya on 01-26-2025 Albumin BCG dye [Mass/Vol] Albumin [Mass/volume] in Serum or Plasma by Bromocresol green (BCG) dye binding metho 3.5-5.7 [facility] Alkaline phosphatase [Enzyma tic activity/volume] in Serum or PlasmaOrdered By: Zach Celaya on 01-26-2025 ALP [Catalytic activity/Vol] Alkaline phosphatase [Enzymatic activity/volume] in Serum or Plasma 34-104 [facility] Aspartate aminotransferase [ Enzymatic activity/volume] in Serum or PlasmaOrdered By: Zach Celaya on 01-26-2025 AST [Catalytic activity/Vol] Aspartate aminotransferase [Enzymatic activity/volume] in Serum or Plasma 13-39 [facility] Basophils Auto (Bld) [#/Vol] Ordered By: Zach Celaya on 01-26-2025 Basophils (Bld) [#/Vol] Automated basoph il count 0.0-0.2 [facility] Basophils/100 WBC Auto (Bld) Ordered By: Zach Celaya on 01-26-2025 Basophils/100 WBC (Bld) Automated basophil % . [facility] Bilirubin.total [Mass/volume ] in Serum or PlasmaOrdered By: Zach Celaya on 01-26-2025 Bilirubin [Mass/Vol] Bilirubin.total [Mass/volume] in Serum or Plasma 0.3-1.0 [facility] CMP with reflex to A1Con Albumin [Mass/Vol] 3.8 g/dL Normal 3.5-5.7 [facility] Comment on above: Performed By: #### C MP wRFX A1C, CBC #### [address] Albumin/Globulin [Mass ratio] 1.2 {ratio} Normal [facility] Comment on above: Performed By: #### C MP wRFX A1C, CBC #### [address] ALP [Catalytic activity/Vol] 60 U/L Normal 34-104 [facility] Comment on above: Result Comment: PERF ORMED BY: [place] [address] PATHOLOGIST ENGINEER SERGEANT ELISHA BRANDON M.D. Performed By: #### C MP wRFX A1C, CBC #### [address] ALT [Catalytic activity/Vol] 13 U/L Normal 7-52 [facility] Comment on above: Performed By: #### C MP wRFX A1C, CBC #### [address] Anion gap [Moles/Vol] 7.5 mmol/L Normal 6.0-15.0 [facility] Comment on above: Performed By: #### C MP wRFX A1C, CBC #### [address] AST [Catalytic activity/Vol] 17 U/L Normal 13-39 [facility] Comment on above: Performed By: #### C MP wRFX A1C, CBC #### [address] Bilirubin [Mass/Vol] 0.5 mg/dL Normal 0.3-1.0 [facility] Comment on above: Performed By: #### C MP wRFX A1C, CBC #### [place] [address] [place] Calcium [Mass/Vol] 9.1 mg/dL Normal 8.6-10.3 [facility] Comment on above: Performed By: #### C MP wRFX A1C, CBC #### [address] Chloride [Moles/Vol] 104 mmol/L Normal 98-107 [facility] Comment on above: Performed By: #### C MP wRFX A1C, CBC #### [address] CO2 [Moles/Vol] 30.6 mmol/L Normal 21.0-31.0 [facility] Comment on above: Performed By: #### C MP wRFX A1C, CBC #### [address] Creatinine [Mass/Vol] 0.69 mg/dL Normal 0.60-1.20 [facility] Comment on above: Performed By: #### C MP wRFX A1C, CBC #### [place] [address] [place] GFR/1.73 sq M.predicted MDRD (S/P/Bld) [Vol rate/Area] mL/min/{1.73_m2} Normal [facility] Comment on above: Performed By: #### C MP wRFX A1C, CBC #### [address] Globulin (S) [Mass/Vol] 3.3 g/dL Normal [facility] Comment on above: Performed By: #### C MP wRFX A1C, CBC #### [place] [address] [place] Glucose [Mass/Vol] 82 mg/dL Normal 70-100 [facility] Comment on above: Performed By: #### C MP wRFX A1C, CBC #### [address] Potassium [Moles/Vol] 4.1 mmol/L Normal 3.5-5.1 [facility] Comment on above: Performed By: #### C MP wRFX A1C, CBC #### [facility] [address] [id number] [place] Protein [Mass/Vol] 7.1 g/dL Normal 6.4-8.9 [facility] Comment on above: Performed By: #### C MP wRFX A1C, CBC #### [facility] [address] [place] [address] [place] Sodium [Moles/Vol] 138 mmol/L Normal 136-145 [facility] Comment on above: Performed By: #### C MP wRFX A1C, CBC #### [facility] [address] [place] [address] [place] Urea nitrogen [Mass/Vol] 12 mg/dL Normal 7-25 [facility] Comment on above: Performed By: #### C MP wRFX A1C, CBC #### [facility] [address] [place] [address] [place] Calcium [Mass/volume] in Ser um or PlasmaOrdered By: Zach Celaya on 01-26-2025 Calcium [Mass/Vol] Calcium [Mass/volume] in Serum or Plasma 8.6-10.3 [facility] Carbon dioxide, total [Moles /volume] in Serum or PlasmaOrdered By: Zach Celaya on 01-26-2025 CO2 [Moles/Vol] Carbon dioxide, total [Moles/volume] in Serum or Plasma 21.0-31.0 [facility] Chloride [Moles/volume] in S gucci or PlasmaOrdered By: Zach Celaya on 01-26-2025 Chloride [Moles/Vol] Chloride [Moles/volume] in Serum or Plasma 98-107 [facility] Complete Blood Count Auto Di ffon 01-26-2025 Basophils (Bld) [#/Vol] 0.1 10*3/uL Normal 0.0-0.2 [facility] Comment on above: Result Comment: PERF ORMED BY: [facility] [address] [place] [address] PATHOLOGIST ENGINEER SERGEANT ELISHA BRANDON M.D. Performed By: #### C MP wRFX A1C, CBC #### [facility] [address] [place] [address] [place] Basophils/100 WBC (Bld) 1.2 % Normal . Lauren benson [facility] Comment on above: Performed By: #### C MP wRFX A1C, CBC #### [facility] [address] Eosinophils (Bld) [#/Vol] 0.1 10*3/uL Normal 0.0-0.45 [facility] Comment on above: Performed By: #### C MP wRFX A1C, CBC #### [place] [address] [place] Eosinophils/100 WBC (Bld) 2.9 % Normal . [facility] Comment on above: Performed By: #### C MP wRFX A1C, CBC #### [address] Erythrocyte distribution width (RBC) [Ratio] 15.9 % High 11.9-15.3 [facility] Comment on above: Performed By: #### C MP wRFX A1C, CBC #### [address] Hematocrit (Bld) [Volume fraction] 30.3 % Low 34.0-46.4 [facility] Comment on above: Performed By: #### C MP wRFX A1C, CBC #### [place] [address] [place] Hemoglobin (Bld) [Mass/Vol] 9.8 g/dL Low 11.8-15.4 [facility] Comment on above: Performed By: #### C MP wRFX A1C, CBC #### [place] [address] [place] Lymphocytes (Bld) [#/Vol] 1.2 10*3/uL Normal 1.00-4.8 [facility] Comment on above: Performed By: #### C MP wRFX A1C, CBC #### [place] [id number] [place] Lymphocytes/100 WBC (Bld) 24.4 % Normal . [facility] Comment on above: Performed By: #### C MP wRFX A1C, CBC #### [address] MCH (RBC) [Entitic mass] 25.0 pg Normal 24.7-34.3 [facility] Comment on above: Performed By: #### C MP wRFX A1C, CBC #### [address] MCV (RBC) [Entitic vol] 77.6 fL Low 80-100 [facility] Comment on above: Performed By: #### C MP wRFX A1C, CBC #### [address] Mean Corpuscular HGB Conc 32.3 g/dL Normal 32.0-35.0 [facility] Comment on above: Performed By: #### C MP wRFX A1C, CBC #### [address] Monocytes (Bld) [#/Vol] 0.4 10*3/uL Normal 0.0-0.8 [facility] Comment on above: Performed By: #### C MP wRFX A1C, CBC #### [address] Monocytes/100 WBC (Bld) 8.2 % Normal . [facility] Comment on above: Performed By: #### C MP wRFX A1C, CBC #### [address] Neutrophils (Bld) [#/Vol] 3.1 10*3/uL Normal 1.8-7.7 [facility] Comment on above: Performed By: #### C MP wRFX A1C, CBC #### [address] Neutrophils/100 WBC (Bld) 63.3 % Normal . [facility] Comment on above: Performed By: #### C MP wRFX A1C, CBC #### [address] NRBC% 0.1 /100{WBC} Normal 0-0.5 [facility] Comment on above: Performed By: #### C MP wRFX A1C, CBC #### [facility] [address] Platelet mean volume (Bld) [Entitic vol] 7.9 fL Normal 6.3-10.7 [facility] Comment on above: Performed By: #### C MP wRFX A1C, CBC #### [facility] [address] [place] [address] [place] Platelets (Bld) [#/Vol] 248 10*3/uL Normal 150-450 [facility] Comment on above: Performed By: #### C MP wRFX A1C, CBC #### [place] [address] [place] RBC (Bld) [#/Vol] 3.91 10*6/uL Normal 3.60-5.00 [facility] Comment on above: Performed By: #### C MP wRFX A1C, CBC #### [facility] [address] WBC (Bld) [#/Vol] 4.9 10*3/uL Normal 3.8-11.6 [facility] Comment on above: Performed By: #### C MP wRFX A1C, CBC #### [address] Creatinine [Mass/volume] in Serum or PlasmaOrdered By: Zach Celaya on 01-26-2025 Creatinine [Mass/Vol] Creatinine [Mass/volume] in Serum or Plasma 0.60-1.20 [facility] ECG 12 lead ECGon 01-26-2025 ECG 12 lead ECG [facility] Main [place] [address] [place] [address] Electrocardiograph Report Signed Patient: Dylan Mooney MR#: [id number] : 1975 Acct:[id number] Age/Sex: 49 / F ADM Date: 01/26/25 Loc: PS Room: Type: [facility] CLI Attending Dr: Zach A Giselle DO Ordering Provider: Zach Celaya DO Date of Service: 01/26/25 ECG/ECG 12 lead ECG: Pre op Copies to: Test Reason : Blood Pressure : */* mmHG Vent. Rate : 71 BPM Atrial Rate : 71 BPM P-R Int : 162 ms QRS Dur : 88 ms QT Int : 394 ms P-R-T Axes : 55 70 56 degrees QTcB Int : 428 ms Normal sinus rhythm with sinus arrhythmia Normal ECG When compared with ECG of 19-Nov-2020 18:41, No significant change was found Confirmed by ZEINA OHARA MD ([id number]) on 01/26/2025 5:37:36 PM Referred By: Electronically Signed By: ZEINA OHARA MD Transcribed By: MUS Signed By Zeina Ohara MD 0 01/26/25 1737 Normal [facility] Eosinophils Auto (Bld) [#/Vo l]Ordered By: Zach Celaya on 01-26-2025 Eosinophils (Bld) [#/Vol] Automated eosinophil count 0.0-0.45 [facility] Eosinophils/100 WBC Auto (Bl d)Ordered By: Zach Celaya on 01-26-2025 Eosinophils/100 WBC (Bld) Automated eosinophil % . [facility] Erythrocyte distribution wid th Auto (RBC) [Ratio]Ordered By: Zach Celaya on 01-26-2025 Erythrocyte distribution width (RBC) [Ratio] Erythrocyte distribution width [Ratio] by Automated count High 11.9-15.3 [facility] Globulin Calc (S) [Mass/Vol] Ordered By: Zach Celaya on 01-26-2025 Globulin (S) [Mass/Vol] Serum globulin measurement by calculation (mass/volume) [facility] Glucose [Mass/volume] in Ser um or PlasmaOrdered By: Zach Celaya on 01-26-2025 Glucose [Mass/Vol] Glucose [Mass/volume] in Serum or Plasma 70-100 [facility] Hematocrit Auto (Bld) [Volum e fraction]Ordered By: Zach Celaya on 01-26-2025 Hematocrit (Bld) [Volume fraction] Hematocrit [Volume Fraction] of Blood by Automated count Low 34.0-46.4 [facility] Hemoglobin [Mass/volume] in BloodOrdered By: Zach Celaya on 01-26-2025 Hemoglobin (Bld) [Mass/Vol] Hemoglobin [Mass/volume] in Blood Low 11.8-15.4 [facility] Leukocytes [#/volume] correc jenn for nucleated erythrocytes in Blood by Automated counOrdered By: Zach Celaya on 01-26-2025 WBC corrected for nucl RBC Auto (Bld) [#/Vol] Leukocytes [#/volume] corrected for nucleated erythrocytes in Blood by Automated coun 3.8-11.6 [facility] Lymphocytes Auto (Bld) [#/Vo l]Ordered By: Zach Celaya on 01-26-2025 Lymphocytes (Bld) [#/Vol] Lymphocytes [#/volume] in Blood by Automated count 1.00-4.8 [facility] Lymphocytes/100 WBC Auto (Bl d)Ordered By: Zcah Celaya on 01-26-2025 Lymphocytes/100 WBC (Bld) Lymphocytes/100 leukocytes in Blood by Automated count . [facility] MCH Auto (RBC) [Entitic mass ]Ordered By: Zach Celaya on 01-26-2025 MCH (RBC) [Entitic mass] MCH [Entitic ma ss] by Automated count 24.7-34.3 [facility] MCHC Auto (RBC) [Mass/Vol]Or dered By: Zach Celaya on 01-26-2025 MCHC (RBC) [Mass/Vol] MCHC [Mass/volume] by Automated count 32.0-35.0 [facility] MCV Auto (RBC) [Entitic vol] Ordered By: Zach Celaya on 01-26-2025 MCV (RBC) [Entitic vol] MCV [Entitic vol ume] by Automated count Low 80-100 [facility] Monocytes Auto (Bld) [#/Vol] Ordered By: aZch Celaya on 01-26-2025 Monocytes (Bld) [#/Vol] Automated blood monocyte count 0.0-0.8 [facility] Monocytes/100 WBC Auto (Bld) Ordered By: Zach Celaya on 01-26-2025 Monocytes/100 WBC (Bld) Automated monocyte % . [facility] Neutrophils Auto (Bld) [#/Vo l]Ordered By: Zach Celaya on 01-26-2025 Neutrophils (Bld) [#/Vol] Neutrophils [#/volume] in Blood by Automated count 1.8-7.7 [facility] Neutrophils/100 WBC Auto (Bl d)Ordered By: Zach Celaya on 01-26-2025 Neutrophils/100 WBC (Bld) Automated neutrophil % . [facility] No Panel InformationOrdered By: Zach Celaya on 01-26-2025 Estimated GFR (CKD-EPI) > 60.0 mL/Min [facility] Creatinine Clearance (Chem N/A [facility] Nucleated erythrocytes [Pres ence] in Blood by Automated countOrdered By: Zach Celaya on 01-26-2025 Nucleated RBC Auto Ql (Bld) Nucleated erythrocytes [Presence] in Blood by Automated count 0-0.5 [facility] Platelet mean volume Auto (B ld) [Entitic vol]Ordered By: Zach Celaya on 01-26-2025 Platelet mean volume (Bld) [Entitic vol] Platelet mean volume [Entitic volume] in Blood by Automated count 6.3-10.7 [facility] Platelets Auto (Bld) [#/Vol] Ordered By: Zach Celaya on 01-26-2025 Platelets (Bld) [#/Vol] Platelets [#/vol ume] in Blood by Automated count 150-450 [facility] Potassium [Moles/volume] in Serum or PlasmaOrdered By: Zach Celaya on 01-26-2025 Potassium [Moles/Vol] Potassium [Moles/volume] in Serum or Plasma 3.5-5.1 [facility] Protein [Mass/volume] in Ser um or PlasmaOrdered By: Zach Celaya on 01-26-2025 Protein [Mass/Vol] Protein [Mass/volume] in Serum or Plasma 6.4-8.9 [facility] RBC Auto (Bld) [#/Vol]Ordere d By: Zach Celaya on 01-26-2025 RBC (Bld) [#/Vol] Erythrocytes [#/volume] in Blood by Automated count 3.60-5.00 [facility] Serum or plasma albumin/glob ulin mass ratioOrdered By: Zach Celaya on 01-26-2025 Albumin/Globulin [Mass ratio] Serum or plasma albumin/globulin mass ratio [facility] Serum or plasma anion gap de terminationOrdered By: Zach Celaya on 01-26-2025 Anion gap [Moles/Vol] Serum or plasma anion gap determination 6.0-15.0 [facility] Sodium [Moles/volume] in Ser um or PlasmaOrdered By: Zach Celaya on 01-26-2025 Sodium [Moles/Vol] Sodium [Moles/volume] in Serum or Plasma 136-145 [facility] Urea nitrogen [Mass/volume] in Serum or PlasmaOrdered By: Zach Celaya on 01-26-2025 Urea nitrogen [Mass/Vol] Urea nitrogen [Mass/volume] in Serum or Plasma 7-25 [facility] WBC Auto (Bld) [#/Vol]Ordere d By: Zach Celaya on 01-26-2025 WBC (Bld) [#/Vol] Leukocytes [#/volume] in Blood by Automated count 3.8-11.6 [facility] MR shoulder LT wo conon 03-3 MR shoulder LT wo con [facility] [place] [address] MRI Report Signed Patient: Dylan Mooney MR#: [id number] : 1975 Acct:[id number] Age/Sex: 49 / F ADM Date: 01/10/25 Loc: [facility] Room: Type: [facility] Attending Dr: Zach Celaya DO Copies to: Zach Celaya DO Ordering Provider: Zach Celaya DO Date of Service: 01/10/25 MR/MR shoulder LT wo con: M75.102 - Unspecified rotator cuff tear or rupture of lef... EXAMINATION: MRI OF THE LEFT SHOULDER CLINICAL HISTORY: Anterior and posterior shoulder pain radiating into left elbow. COMPARISON: Left shoulder series 08/17/2024. TECHNIQUE: Multiecho, multiplanar imaging was performed with use of an extremity coil. No contrast was administered. FINDINGS: Bones/Joints: Degenerative spurring is seen involving the AC and glenohumeral joints. No joint effusion is seen. Subacromial bursitis. Inferior glenohumeral ligament appears unremarkable. No bone marrow edema or fracture. Labrum: No definitive tear is seen. Biceps tendon: Normal Supraspinatus: Mild tendinosis without tear. Infraspinatus: Normal Teres Minor: Normal Subscapularis: Normal MR/MR shoulder LT wo con IMPRESSION: DEGENERATIVE CHANGES INVOLVING THE AC AND GLENOHUMERAL JOINTS WITH TENDINOSIS INVOLVING SUPRASPINATUS AND SUBACROMIAL BURSITIS. NO ROTATOR CUFF TEAR IS SEEN. NO FRACTURE OR BONE MARROW EDEMA. Impression dictated by: Darrin Oseguera Jr., D.O.01/10/2025 11:14 AM Dictation Location: [place] [address] Transcribed By: [facility] 01/10/25 1114 Dictated By: Darrin Oseguera Jr, DO 01/10/25 1111 Signed By: 01/10/25 1114 Normal [facility] Magnetic resonance imaging r eportOrdered By: Darrin Oseguera on 01-10-2025 Study report [facility] [address] [place] [address] [place] [address] MRI Report Signed Patient: Dylan Mooney MR#: [id number] : 1975 Acct:[id number] Age/Sex: 49 / F ADM Date: Loc: [facility] Room: Type: [facility] Attending Dr: Zach Celaya DO Copies to: Zach Celaya DO~ Ordering Provider: Zach Celaya DO Date of Service: 01/10/25 MR/MR shoulder LT wo con: M75.102 - Unspecified rotator cuff tear or rupture of lef... EXAMINATION: MRI OF THE LEFT SHOULDER CLINICAL HISTORY: Anterior and posterior shoulder pain radiating into left elbow. COMPARISON: Left shoulder series 08/17/2024. TECHNIQUE: Multiecho, multiplanar imaging was performed with use of an extremity coil. No contrast was administered. FINDINGS: Bones/Joints: Degenerative spurring is seen involving the AC and glenohumeral joints. No joint effusion is seen. Subacromial bursitis. Inferior glenohumeral ligament appears unremarkable. No bone marrow edema or fracture. Labrum: No definitive tear is seen. Biceps tendon: Normal Supraspinatus: Mild tendinosis without tear. Infraspinatus: Normal Teres Minor: Normal Subscapularis: Normal MR/MR shoulder LT wo con IMPRESSION: DEGENERATIVE CHANGES INVOLVING THE AC AND GLENOHUMERAL JOINTS WITH TENDINOSIS INVOLVING SUPRASPINATUS AND SUBACROMIAL BURSITIS. NO ROTATOR CUFF TEAR IS SEEN. NO FRACTURE OR BONE MARROW EDEMA. Impression dictated by: Darrin Oseguera Jr., Sandeep01/10/2025 11:14 AM Dictation Location: [place] [address] Transcribed By: [facility] 01/10/25 1114 Dictated By: Darrin Oseguera Jr, DO 01/10/25 1111 Signed By: 01/10/25 1114 [facility] BASIC METABOLIC PANLon 12-03 Anion gap [Moles/Vol] 4 mmol/L Low 5-15 [facility] Comment on above: Performed By: #### C HEIDE, 73656-5, 78360-8, BMP #### [facility] ([id number]) [address] [place] [address]66 Calcium [Mass/Vol] 8.5 mg/dL Normal 8.5-10.5 [facility] Comment on above: Performed By: #### Angie JAEGER, 06292-7, 61340-2, BMP #### [facility] ([id number]) [address] [place] [address] 61644 Chloride [Moles/Vol] 106 mmol/L Normal 98-109 [facility] Comment on above: Performed By: #### C BCA, 58690-0, 81108-5, BMP #### [facility] ([id number]) [address] [place] [address] 66044 CO2 [Moles/Vol] 29 mmol/L Normal 22-32 [facility] Comment on above: Performed By: #### Angie BCA, 51694-5, 53834-1, BMP #### [facility] ([id number]) [address] [place] [address]82 Creatinine [Mass/Vol] 0.74 mg/dL Normal 0.40-1.00 [facility] Comment on above: Result Comment: METH OD TRACEABLE TO IDMS STANDARD Performed By: #### C HEIDE, 99497-2, 08519-3, BMP #### [facility] ([id number]) [address] [place] [address]1057 eGFR (CKD-EPI) NON-RACE DEPENDENT >90 Normal >59 [facility] Comment on above: Result Comment: Reported eGFR is based on the CKD-EPI 2020 equation that does not use a race coefficient. Performed By: #### C HEIDE, 01004-3, 59294-3, BMP #### [facility] ([id number]) [address] [place] [address] 48122 Glucose [Mass/Vol] 93 mg/dL Normal 65-99 [facility] Comment on above: Performed By: #### C HEIDE, 81948-3, 68678-3, BMP #### [facility] ([id number]) [address] [place] [address] 10210 Potassium [Moles/Vol] 3.7 mmol/L Normal 3.5-5.0 [facility] Comment on above: Performed By: #### C HEIDE, 08928-6, 31636-9, BMP #### [facility] ([id number]) [address] [place] [address] 15305 Sodium [Moles/Vol] 139 mmol/L Normal 134-146 [facility] Comment on above: Performed By: #### C HEIDE, 22188-2, 82889-1, BMP #### [facility] ([id number]) [address] [place] [address] 07993 Urea nitrogen [Mass/Vol] 13 mg/dL Normal 5-23 [facility] Comment on above: Performed By: #### C HEIDE, 54804-9, 65340-3, BMP #### [facility] ([id number]) [address] [place] [address] 00169 CBC AND AUTO DIFFon 12-03-19 25 ABSOLUTE BASOPHIL 0.1 X10E9/L Normal 0.0-0.2 [facility] Comment on above: Performed By: #### Angie JAEGER, 29641-4, 35018-2, BMP #### [facility] ([id number]) [address] [place] [address] 89880 ABSOLUTE NEUTROPHIL 3.8 X10E9/L Normal 1.5-6.6 [facility] Comment on above: Performed By: #### Angie JAEGER, 40220-1, 32572-9, BMP #### [facility] ([id number]) [address] [place] [address] 78305 Basophils/100 WBC (Bld) 1.0 % Normal [facility] Comment on above: Performed By: #### Angie JAEGER, 97312-0, 93114-8, BMP #### [facility] ([id number]) [address] [place] [address] 65542 Eosinophils (Bld) [#/Vol] 0.1 10*3/uL Normal 0.0-0.4 [facility] Comment on above: Performed By: #### Angie JAEGER, 51399-1, 48852-5, BMP #### [facility] ([id number]) [address] [place] [address] 51803 Eosinophils/100 WBC (Bld) 2.5 % Normal [facility] Comment on above: Performed By: #### Angie JAEGER, 72925-9, 02240-1, BMP #### [facility] ([id number]) [address] [place] [address] 35142 Erythrocyte distribution width (RBC) [Ratio] 15.6 % High 11.5-15.0 [facility] Comment on above: Performed By: #### Angie JAEGER, 18960-1, 50317-1, BMP #### [facility] ([id number]) [address] [place] [address] 90232 Hematocrit (Bld) [Volume fraction] 30.2 % Low 35-47 [facility] Comment on above: Performed By: #### Angie JAEGER, 69124-4, 33731-0, BMP #### [facility] ([id number]) [address] [place] [address] 65442 Hemoglobin (Bld) [Mass/Vol] 9.8 g/dL Low 11.7-15.5 [facility] Comment on above: Performed By: #### Angie JAEGER, 83475-4, 84342-4, BMP #### [facility] ([id number]) [address] [place] [address] 98979 Lymphocytes (Bld) [#/Vol] 1.6 10*3/uL Normal 1.0-3.5 [facility] Comment on above: Performed By: #### Angie JAEGRE, 46846-7, 64334-1, BMP #### [facility] ([id number]) [address] [place] [address] 95906 Lymphocytes/100 WBC (Bld) 26.7 % Normal [facility] Comment on above: Performed By: #### Angie JAEGER, 80900-5, 92564-8, BMP #### [facility] ([id number]) [address] [place] [address] 76944 MCH (RBC) [Entitic mass] 25.1 pg Low 27-34 [facility] Comment on above: Performed By: #### Angie JAEGER, 15155-9, 52328-0, BMP #### [facility] ([id number]) [address] [place] [address] 01615 MCHC (RBC) [Mass/Vol] 32.4 g/dL Normal 32-36 [facility] Comment on above: Performed By: #### Angie JAEGER, 77453-3, 42587-9, BMP #### [facility] ([id number]) [address] [place] [address] 20238 MCV (RBC) [Entitic vol] 78 fL Low 80-100 [facility] Comment on above: Performed By: #### Angie JAEGER, 95179-9, 63609-9, BMP #### [facility] ([id number]) [address] [place] [address] 36164 Monocytes (Bld) [#/Vol] 0.5 10*3/uL Normal 0-0.9 [facility] Comment on above: Performed By: #### Angie JAEGER, 25639-2, 93694-7, BMP #### [facility] [facility] ([id number]) [address] [place] [address]08 Monocytes/100 WBC (Bld) 7.6 % Normal [facility] Comment on above: Performed By: #### Angie JAEGER, 02797-6, 95418-3, BMP #### [facility] ([id number]) [address] [place] [address] 06786 Neutrophils/100 WBC (Bld) 62.2 % Normal [facility] Comment on above: Performed By: #### Angie JAEGER, 66084-8, 59950-1, BMP #### [facility] ([id number]) [address] [place] [address] 18521 Platelet mean volume (Bld) [Entitic vol] 7.5 fL Normal 7-12 [facility] Comment on above: Performed By: #### Angie JAEGER, 09372-9, 67160-7, BMP #### [facility] ([id number]) [address] [place] [address] 74612 Platelets (Bld) [#/Vol] 301 10*3/uL Normal 150-450 [facility] Comment on above: Performed By: #### Angie JAEGER, 64947-7, 22264-1, BMP #### [facility] ([id number]) [address] [place] [address] 58088 RBC COUNT 3.89 X10E12/L Normal 3.80-5.20 [facility] Comment on above: Performed By: #### Angie JAEGER, 34425-0, 56222-0, BMP #### [facility] ([id number]) [address] [place] [address] 45069 WBC (Bld) [#/Vol] 6.0 10*3/uL Normal 4.0-11.0 [facility] Comment on above: Performed By: #### Angie JAEGER, 07426-4, 23047-6, BMP #### [facility] ([id number]) [address] [place] [address]94 Fibrin D-dimer DDU (PPP) [Ma ss/Vol]on 12-03-2024 D DIMER <150 Normal <255 [facility] Comment on above: Result Comment: Results <255 ng/mL DDU: The presence of a VTE can safely be excluded with a negative D-Dimer result and Wells score. A negative result doesn't exclude the possibility of DIC. The test be repeated along with other diagnostic tests if the patient's symptoms persist or worsen. [email or web address] Performed By: #### Angie JAEGER, 23624-1, 96906-4, BMP #### [facility] ([id number]) [address] [place] [address] 04395 SARS/FLU A+B/RSV by NAAT/Mol ecularon 12-03-2024 SARS/FLU A+B/RSV by NAAT/Molecular FLU A PCR Negative (qualifier value) FLU B PCR Negative (qualifier value) RSV by PCR Negative (qualifier value) SARS CoV 2 Not detected (qualifier value) NOTE The Xpert Xpress SARS-CoV-2/Flu/RSV Plus test is a rapid, multiplexed real-time RT-PCR test intended for the simultaneous qualitative detection and differentiation of SARS-CoV-2, influenza A, influenza B and respiratory syncytial virus (RSV) viral RNA from individuals suspected of respiratory viral infection consistent with COVID-19 by their healthcare provider. This test has not been validated in asymptomatic patients. The Xpert Xpress SARS-CoV-2 test is intended for use by qualified and trained operators who are performing tests using either [employer] or Easy-Point systems and is limited to laboratories that meet the CLIA requirements to perform high and moderate complexity tests. The Xpert Xpress SARS-CoV-2/Flu/RSV Plus is only for use under the Food and Drug Administration's Emergency Use Authorization. Results are for the simultaneous detection and differentiation of SARS-CoV-2, influenza A, influenza B and RSV nucleic acids in clinical specimens. SARS-CoV-2, influenza A, influenza B and RSV RNA identified by this test are generally detectable in upper respiratory samples during the acute phase of infection. Positive results are indicative of the presence of the identified virus, but do not rule out bacterial infection or co-infection with other pathogens not detected by this test. Clinical correlation with patient history and other diagnostic information is necessary to determine patient infection status. The agent detected may not be the definite cause of disease. Negative results do not preclude SARS-CoV-2, influenza A, influenza B and RSV infection and should not be used as the sole basis for treatment or other patient management decisions. Negative results must be combined with clinical observations, patient history and epidemiological information. An Invalid result may occur with specimen-associated inhibition unable to be resolved with specimen repeat. Fact Sheet for Healthcare Providers: https://www.fda.gov/ media/915390/downloa d Fact Sheet for Patients: https://www.fda.gov/ media/819303/downloa d [facility] Comment on above: Performed By: #### C OVFLR #### [facility] ([id number]) [address] [place] [address] Troponin I.cardiac High sens itivity method [Mass/Vol]on 12-03-2024 1 HOUR TROP I, HIGH SENSITIVITY 2 ng/L Normal <16 [facility] Comment on above: Performed By: #### 8 9579-7 #### [facility] ([id number]) [address] [facility], [place] [address] TROPONIN I, HIGH SENSITIVITY 2 ng/L Normal <16 [facility] Comment on above: Performed By: #### C BCA, 40173-5, 48343-9, BMP #### [facility] ([id number]) [address] [place] [address], [place] [address] XR CHEST 2 VWSon 12-03-2024 XR CHEST 2 VWS XR CHEST 2 VWS Clinical history: Cough, shortness of breath. Recent influenza. Comparisons: None Findings: PA and lateral chest radiographs were obtained. Cardiomediastinal silhouette and pulmonary vasculature appear within normal limits. Lungs appear clear. There is no evidence for pleural effusion nor pneumothorax. Surgical clips noted in the upper abdomen. IMPRESSION: No evidence for acute cardiopulmonary disease. Finalized by Guillaume Royal MD on 12/03/2024 7:53 PM Normal [facility] Influenza virus A and B and SARS-CoV-2 (COVID-19) RNA panel - Respiratory system specon 11-22-2024 Influenza virus A and B RNA and SARS-CoV-2 (COVID-19) N gene panel KISHOER+probe (Resp) Influenza virus A and B and SARS-CoV-2 (COVID-19) RNA panel - Respiratory system spec [facility] - Microbiology an d Antimicrobial susceptibilityon 11-22-2024 SARS-CoV-2 (COVID-19) RNA KISHORE+probe Ql (Unsp spec) Negative [facility] No Panel Informationon 11-22 POC Influenza B (KISHORE) Negative [facility] X-ray reportOrdered By: José Manuel Qiu on 11-11-2024 Study report [facility] [place] [address] [place] [address] XRay Report Signed Patient: Dylan Mooney MR#: [id number] : 1975 Acct:[id number] Age/Sex: 49 / F ADM Date: 5 Loc: XDUCLY Room: Type: REG CLI Attending Dr: Mikki Mendez 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 The lateral malleolus swelling ACUTE FINDINGS: None DEGENERATIVE CHANGE: Posterior and inferior calcaneal spurring SOFT TISSUE FINDINGS: Lateral soft tissue swelling JOINT EFFUSION: None POSTOP CHANGES: None BONE MINERALIZATION: Adequate XR/XR ankle RT min 3V* IMPRESSION: No acute findings. 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 The lateral malleolus swelling ACUTE FINDINGS: None DEGENERATIVE CHANGE: Posterior and inferior calcaneal spurring SOFT TISSUE FINDINGS: Lateral soft tissue swelling JOINT EFFUSION: None POSTOP CHANGES: None BONE MINERALIZATION: Adequate XR/XR ankle RT min 3V* IMPRESSION: No acute findings. Impression dictated by: Maynor Qiu M.D.11/11/2024 4:00 PM Dictation Location: [facility]--20 Transcribed By: [facility] 11/11/24 1600 Dictated By: Maynor Qiu DO 11/11/24 1556 Signed By: 11/11/24 1600 Normal [facility] Laboratory - Chemistry and C hemistry - challengeon 08-17-2024 Bilirubin Ql (U) Negative [facility] Glucose (U) [Mass/Vol] Negative [facility] Ketones Ql (U) Negative [facility] pH (U) 5 [pH] [facility] Specific gravity (U) [Rel density] 1.000 [facility] Urobilinogen (U) [Mass/Vol] 0.2 mg/dL [facility] Laboratory - Specimen inform ationon 08-17-2024 Appearance (U) clear [facility] Color (U) raiza [facility] Laboratory - Urinalysison Leukocyte esterase Test strip Ql (U) Negative [facility] Nitrite Ql (U) Negative [facility] Protein Ql (U) Negative [facility] No Panel Informationon 08-17 Urine Occult Blood Negative [facility] Urine Cultureon 08-17-2024 Bacteria identified Cx Nom (U) No Growth 2 Days PERFORMED BY: [place] [address] PATHOLOGIST ENGINEER SERGEANT MEGGAN VALENTINE M.D. Normal [facility] Comment on above: Performed By: #### C UU #### [address] Urine cultureOrdered By: Amy Good on 08-17-2024 Bacteria identified Cx Nom (U) Urine culture [facility] - Chemistry and C hemistry - challengeon 06-10-2024 Bilirubin Ql (U) Negative [facility] Glucose (U) [Mass/Vol] Negative [facility] Ketones Ql (U) Negative [facility] pH (U) 5.0 [pH] [facility] Specific gravity (U) [Rel density] 1.020 [facility] Urobilinogen (U) [Mass/Vol] 0.2 mg/dL [facility] Laboratory - Specimen inform ationon 06-10-2024 Appearance (U) clear [facility] Color (U) darkyellow [facility] Laboratory - Urinalysison Leukocyte esterase Test strip Ql (U) Negative [facility] Nitrite Ql (U) Negative [facility] Protein Ql (U) trace [facility] No Panel Informationon 06-10 Urine Occult Blood Negative [facility] Basophils Auto (Bld) [#/Vol] on 05-31-2024 Basophils (Bld) [#/Vol] 0.1 10 3/uL 0.0-0.1 [facility] Basophils/100 WBC Auto (Bld) on 05-31-2024 Basophils/100 WBC (Bld) 0.7 % 0.2-2.0 [facility] Eosinophils/100 WBC Auto (Bl d)on 05-31-2024 Eosinophils/100 WBC (Bld) 0.9 % 0.9-7.0 [facility] Erythrocyte distribution wid th Auto (RBC) [Ratio]on 05-31-2024 Erythrocyte distribution width (RBC) [Ratio] 14.5 % 11.0-15.0 [facility] Estimated glomerular filtrat ion rate (GFR) non- Americanon 05-31-2024 GFR/1.73 sq M.predicted among non-blacks MDRD (S/P/Bld) [Vol rate/Area] mL/min/{1.73_m2} >=60 [facility] Globulin Calc (S) [Mass/Vol] on 05-31-2024 Globulin (S) [Mass/Vol] 3.8 g/dL [facility] HCG ( test) IA.rapi d Ql (U)on 05-31-2024 HCG ( test) Ql (U) Negative NEGATIVE [facility] Hematocrit Auto (Bld) [Volum e fraction]on 05-31-2024 Hematocrit (Bld) [Volume fraction] 33.5 % Low 36.0-48.0 [facility] Hemoglobin [Mass/volume] in Bloodon 05-31-2024 Hemoglobin (Bld) [Mass/Vol] 10.1 g/dL Low 12.0-16.0 [facility] - Chemistry and C hemistry - challengeon 05-31-2024 Albumin [Mass/Vol] 3.5 g/dL 3.4-5.0 [facility] ALP [Catalytic activity/Vol] 80 U/L 46-116 [facility] ALT [Catalytic activity/Vol] 28 U/L 14-59 [facility] AST [Catalytic activity/Vol] 26 U/L 15-37 [facility] Bilirubin [Mass/Vol] 0.8 mg/dL 0.2-1.0 [facility] Calcium [Mass/Vol] 8.5 mg/dL 8.5-10.1 [facility] Chloride [Moles/Vol] 103 mmol/L 98-107 [facility] CO2 [Moles/Vol] 25.0 mmol/L 21.0-32.0 [facility] Creatinine [Mass/Vol] 0.68 mg/dL 0.55-1.02 [facility] GFR/1.73 sq M.predicted MDRD (S/P/Bld) [Vol rate/Area] mL/min/{1.73_m2} >=60 [facility] Glucose [Mass/Vol] 93 mg/dL 74-106 [facility] Lactate [Moles/Vol] 0.6 mmol/L 0.4-2.0 [facility] Lipase [Catalytic activity/Vol] 17.0 U/L 16.0-77.0 [facility] Potassium [Moles/Vol] 4.1 mmol/L 3.5-5.1 [facility] Protein [Mass/Vol] 7.3 g/dL 6.4-8.2 [facility] Sodium [Moles/Vol] 137 mmol/L 136-145 [facility] Urea nitrogen [Mass/Vol] 7.0 mg/dL 7.0-18.0 [facility] Urea nitrogen/Creatinine [Mass ratio] 10.3 mg/mg [facility] Bilirubin Ql (U) Negative NEGATIVE [facility] Glucose (U) [Mass/Vol] Negative NEGATIVE [facility] Ketones Ql (U) Negative NEGATIVE [facility] pH (U) 7.0 [pH] 5.0-9.0 [facility] Specific gravity (U) [Rel density] 1.025 1.005-1.025 [facility] Urobilinogen Qn (U) 2.0 {Estiven'U}/dL Abnormal 0.2-1.0 [facility] - Hematology and Cell countson 05-31-2024 Immature granulocytes/100 WBC (Bld) 0.3 % 0.0-0.5 [facility] - Specimen inform ationon 05-31-2024 Appearance (U) SL CLOUDY CLEAR [facility] Color (U) LT. YELLOW YELLOW [facility] - Urinalysison Leukocyte esterase Test strip Ql (U) SMALL Abnormal NEGATIVE [facility] Mucus Ql (Urine sed) SMALL Abnormal NONE SEEN [facility] Nitrite Ql (U) Positive Abnormal NEGATIVE [facility] Protein Ql (U) 100 mg/dL Abnormal NEG/TRACE [facility] Leukocytes [#/volume] correc jenn for nucleated erythrocytes in Blood by Automated counon 05-31-2024 WBC corrected for nucl RBC Auto (Bld) [#/Vol] 8.6 10 3/uL 4.0-11.0 [facility] Lymphocytes Auto (Bld) [#/Vo l]on 05-31-2024 Lymphocytes (Bld) [#/Vol] 1.0 10 3/uL Low 1.2-3.8 [facility] Lymphocytes/100 WBC Auto (Bl d)on 05-31-2024 Lymphocytes/100 WBC (Bld) 11.5 % Low 20.5-60.0 [facility] MCH Auto (RBC) [Entitic mass ]on 05-31-2024 MCH (RBC) [Entitic mass] 25.1 pg Low 26.7-34.0 [facility] MCHC Auto (RBC) [Mass/Vol]on 05-31-2024 MCHC (RBC) [Mass/Vol] 30.1 g/dL 29.9-35.2 [facility] MCV Auto (RBC) [Entitic vol] on 05-31-2024 MCV (RBC) [Entitic vol] 83.3 fL 81.0-99.0 [facility] Monocytes Auto (Bld) [#/Vol] on 05-31-2024 Monocytes (Bld) [#/Vol] 0.7 10 3/uL 0.3-0.8 [facility] Monocytes/100 WBC Auto (Bld) on 05-31-2024 Monocytes/100 WBC (Bld) 7.9 % 1.7-12.0 [facility] Neutrophils Auto (Bld) [#/Vo l]on 05-31-2024 Neutrophils (Bld) [#/Vol] 6.8 10 3/uL High 1.4-6.5 [facility] Neutrophils/100 WBC Auto (Bl d)on 05-31-2024 Neutrophils/100 WBC (Bld) 78.7 % High 43.0-75.0 [facility] No Panel Informationon 05-31 Eosinophils # (Auto) 0.1 10 3/uL 0.0-0.7 [facility] Immature Granulocyte # (Auto) 0.03 10 3/uL 0.00-0.03 [facility] Miscellaneous Test Comment See comment [facility] Comment on above: Specimen Source: UCC - Urine,Clean Catch - Urine CC - 200.100 Urine Bacteria MODERATE #/HPF Abnormal NONE SEEN [facility] Urine Culture Reflexed YES [facility] Urine Microscopic Review YES [facility] Urine Occult Blood LARGE Abnormal NEGATIVE [facility] Urine Other Casts NONE SEEN #/LPF NONE SEEN [facility] Urine Other Crystals None Seen #/HPF None Seen [facility] Urine RBC 50-75 #/HPF Abnormal 0-2 [facility] Urine Renal Epithelial Cells FEW #/LPF Abnormal NONE SEEN [facility] Urine Squamous Epithelial Cells FEW #/LPF Abnormal NONE/RARE [facility] Urine WBC >100 #/HPF Abnormal NONE SEEN [facility] Platelet mean volume Auto (B ld) [Entitic vol]on 05-31-2024 Platelet mean volume (Bld) [Entitic vol] 9.9 fL 9.5-13.5 [facility] Platelets Auto (Bld) [#/Vol] on 05-31-2024 Platelets (Bld) [#/Vol] 228 10 3/uL 150-450 [facility] RBC Auto (Bld) [#/Vol]on RBC (Bld) [#/Vol] 4.02 10 6/uL Low 4.20-5.40 [facility] Serum or plasma albumin/glob ulin mass ratioon 05-31-2024 Albumin/Globulin [Mass ratio] 0.9 {ratio} [facility] Serum or plasma anion gap de terminationon 05-31-2024 Anion gap [Moles/Vol] 13.1 mmol/L [facility] Urine culture routineon 05-13 Bacteria identified Cx Nom (U) [facility] MG MAMM SCREEN 3D CHAI CADon 07-22-2022 MG MAMM SCREEN 3D CHAI CAD Patient: DYLAN MOONEY Exam Date: 07/22/2022 : 1975 Gender:F Ordering : DR SRIDEVI GOOD M.D. Admission #: [id number] Family : Order #: [id number] CLICK HERE TO VIEW EXAM RADIOLOGY REPORT PROCEDURE: MAMMOGRAM SCREENING 3D BILATERAL CAD COMPARISON: None. INDICATIONS: Screening mammography Calculator Name NCI Breast Cancer Risk Assessment Tool 5 Year Breast Cancer Risk 0.70% Lifetime Breast Cancer Risk 8.60% Personal Breast Cancer No Personal Ovarian Cancer No Treatments None Family Cancers Father with lung cancer at age 42. LOCATION: [facility] [place] BREAST COMPOSITION: Heterogeneously dense,which may obscure small [...] Roland MD on 07/22/2022 at 09:29 Normal [facility] XR FOOT LT MIN 3 [...] by: MARILU CALZADA Date: 2022-02-04 14:38 Normal [facility] Vital Signs Date Time Vital Sign Value Performing Clinician Facility 03-15-2025 [id number] Body height 165.1 cm Sridevi Good MD Work Phone: [facility] 03-15-2025 11:04-0400 Body mass index (BMI) [Ratio] 37.5 kg/m2 Sridevi Good MD Work Phone: [facility] 03-15-2025 [id number] Body weight 102.51 kg Sridevi Good MD Work Phone: [facility] 03-15-2025 11:04-0400 Diastolic blood pressure 71 mm[Hg] Sridevi Good MD Work Phone: [facility] 03-15-2025 11:04-0400 Heart rate 61 /min Sridevi Good MD Work Phone: [facility] 03-15-2025 11:04-0400 Systolic blood pressure 116 mm[Hg] Sridevi Good MD Work Phone: [facility] 02-09-2025 13:40-0400 Diastolic blood pressure 54 mm[Hg] Sridevi Good MD Work Phone: [facility] 02-09-2025 13:40-0400 Heart rate 75 /min Sridevi Good MD Work Phone: [facility] 02-09-2025 13:40-0400 Respiratory rate 14 /min Sridevi Good MD Work Phone: [facility] 02-09-2025 13:40-0400 SaO2% (BldA) [Mass fraction] 94 % Sridevi Good MD Work Phone: [facility] 02-09-2025 13:40-0400 Systolic blood pressure 120 mm[Hg] Sridevi Good MD Work Phone: [phone] [place] [address] 02-09-2025 12:40-0400 Body temperature 97 [degF] Sridevi Good MD Work Phone: [facility] 02-09-2025 12:15-0400 Inhaled oxygen flow rate 8 L/min Sridevi Good MD Work Phone: [facility] 02-09-2025 09:26-0400 Body height 167.64 cm Sridevi Good MD Work Phone: [facility] 02-09-2025 09:26-0400 Body weight 102 kg Sridevi Good MD Work Phone: [facility] 01-13-2025 07:59-0400 Body height 167.64 cm Sridevi Good MD Work Phone: [facility] 01-13-2025 07:59-0400 Body mass index (BMI) [Ratio] 35.5 kg/m2 Sridevi Good MD Work Phone: [facility] 01-13-2025 07:59-0400 Body weight 99.79 kg Sridevi Good MD Work Phone: [facility] 12-03-2024 16:14-0500 Body height 167.64 cm Sridevi Good MD Work Phone: [facility] 12-03-2024 16:14-0500 Body mass index (BMI) [Ratio] 36 kg/m2 Sridevi Good MD Work Phone: [facility] 12-03-2024 16:14-0500 Body temperature 98.1 [degF] Sridevi Good MD Work Phone: [facility] 12-03-2024 16:14-0500 Body weight 101.2 kg Sridevi Good MD Work Phone: [facility] 12-03-2024 16:14-0500 Diastolic blood pressure 73 mm[Hg] Sridevi Good MD Work Phone: [facility] 12-03-2024 16:14-0500 Heart rate 70 /min Sridevi Good MD Work Phone: [facility] 12-03-2024 16:14-0500 Respiratory rate 18 /min Sriedvi Good MD Work Phone: [facility] 12-03-2024 16:14-0500 SaO2% (BldA) [Mass fraction] 99 % Sridevi Good MD Work Phone: [facility] 12-03-2024 16:14-0500 Systolic blood pressure 120 mm[Hg] Sridevi Good MD Work Phone: [facility] 11-22-2024 10:37-0500 Body height 167.64 cm Sridevi Good MD Work Phone: [facility] 11-22-2024 10:37-0500 Body mass index (BMI) [Ratio] 35.2 kg/m2 Sridevi Good MD Work Phone: [facility] 11-22-2024 10:37-0500 Body temperature 99 [degF] Sridevi Good MD Work Phone: [facility] 11-22-2024 10:37-0500 Body weight 98.88 kg Sridevi Good MD Work Phone: [facility] 11-22-2024 10:37-0500 Diastolic blood pressure 72 mm[Hg] Sridevi Good MD Work Phone: [facility] 11-22-2024 10:37-0500 Heart rate 89 /min Sridevi Good MD Work Phone: [facility] 02-10-2025 10:37-0500 Respiratory rate 16 /min Sridevi Good MD Work Phone: [facility] 11-22-2024 10:37-0500 SaO2% (BldA) [Mass fraction] 97 % Sridevi Good MD Work Phone: [facility] 11-22-2024 10:37-0500 Systolic blood pressure 118 mm[Hg] Sridevi Good MD Work Phone: [facility] 11-11-2024 15:17-0500 Body height 167.64 cm Sridevi Good MD Work Phone: [facility] 11-11-2024 15:17-0500 Body mass index (BMI) [Ratio] 36 kg/m2 Sridevi Good MD Work Phone: [facility] 11-11-2024 15:17-0500 Body temperature 97.5 [degF] Sridevi Good MD Work Phone: [facility] 11-11-2024 15:17-0500 Body weight 101.2 kg Sridevi Good MD Work Phone: [facility] 11-11-2024 15:17-0500 Diastolic blood pressure 68 mm[Hg] Sridevi Good MD Work Phone: [facility] 11-11-2024 15:17-0500 Heart rate 75 /min Sridevi Good MD Work Phone: [facility] 11-11-2024 15:17-0500 Respiratory rate 19 /min Sridevi Good MD Work Phone: [facility] 11-11-2024 15:17-0500 SaO2% (BldA) [Mass fraction] 99 % Sridevi Good MD Work Phone: [facility] 11-11-2024 15:17-0500 Systolic blood pressure 111 mm[Hg] Sridevi Good MD Work Phone: [facility] 09-13-2024 13:48-0500 Body height 167.64 cm Sridevi Good MD Work Phone: [facility] 09-13-2024 13:48-0500 Body mass index (BMI) [Ratio] 35.5 kg/m2 Sridevi Good MD Work Phone: [facility] 09-13-2024 13:48-0500 Body weight 99.79 kg Sridevi Good MD Work Phone: [facility] [facility] 09:57-0500 Body height 170.18 cm [facility] 08-17-2024 09:57-0500 Body mass index (BMI) [Ratio] 34.6 kg/m2 [facility] 08-17-2024 09:57-0500 Body weight 100.24 kg [facility] 08-17-2024 09:57-0500 Diastolic blood pressure 70 mm[Hg] [facility] 08-17-2024 09:57-0500 Heart rate 73 /min [facility] 08-17-2024 09:57-0500 Systolic blood pressure 109 mm[Hg] [facility] 05-31-2024 10:33-0400 Body height 170.18 cm [facility] 05-31-2024 10:33-0400 Body mass index (BMI) [Ratio] 34.4 kg/m2 [facility] 05-31-2024 10:33-0400 Body temperature 98 [degF] [facility] 05-31-2024 10:33-0400 Body weight 99.79 kg [facility] 05-31-2024 10:33-0400 Diastolic blood pressure 79 mm[Hg] [facility] 05-31-2024 10:33-0400 Heart rate 73 /min [facility] 05-31-2024 10:33-0400 Systolic blood pressure 112 mm[Hg] [facility] 01-15-2024 11:59-0400 Body height 170.18 cm [facility] 01-15-2024 11:59-0400 Body mass index (BMI) [Ratio] 36.6 kg/m2 [facility] 01-15-2024 11:59-0400 Body weight 106.14 kg [facility] 01-15-2024 11:59-0400 Diastolic blood pressure 73 mm[Hg] [facility] 01-15-2024 11:59-0400 Heart rate 66 /min [facility] 01-15-2024 11:59-0400 Systolic blood pressure 110 mm[Hg] [facility] 06-12-2023 15:15-0400 Body height 170.18 cm Sridevi Good Other [facility] [employer] Other 06-12-2023 15:15-0400 Body mass index (BMI) [Ratio] 37.4 kg/m2 Sridevi Good Other [employer] Other 06-12-2023 15:15-0400 Body weight 108.32 kg Sridevi Good Other [employer] Other 06-12-2023 15:15-0400 Diastolic blood pressure 66 mm[Hg] Sridevi Good Other [facility] [employer] Other 06-12-2023 15:15-0400 Systolic blood pressure 108 mm[Hg] Sridevi Good Other [facility] [employer] Other Encounters Encounter Date Encounter Type Care Provider Facility Start: 03-29-2025 ambulatory Sridevi Good Facility :[facility] Start: 03-15-2025 Physical examination Sridevi loera MD Work Phone: [facility] Start: 03-15-2025 End: 03-15-2025 ambulatory Sridevi Good MD Work Phone: [facility] Work Phone: Start: 03-15-2025 End: 03-15-2025 Encounter for general adult medical examination without abnormal findings Sridevi Good MD Work Phone: [facility] Start: 03-15-2025 End: 03-15-2025 Patient encounter procedure Sridevi Good MD Work Phone: [facility] Work Phone: Start: 03-11-2025 Registered Recurring Sridevi loera MD Work Phone: [facility]Physical [facility] [place] Start: 02-22-2025 End: 02-22-2025 ambulatory Sridevi Good MD Work Phone: [facility] Work Phone: Start: 02-22-2025 End: 02-22-2025 Patient encounter procedure Sridevi Good MD Work Phone: [facility] Work Phone: Start: 02-11-2025 Registered Recurring Sridevi loera MD Work Phone: [facility] [place] Start: 02-09-2025 Non-patient / Non-visit Sridevi Good MD Work Phone: [facility] Work Phone: Start: 02-09-2025 End: 02-09-2025 Admission to same day surgery center Sridevi Good MD Work Phone: [facility]Surgery Center [place] Start: 02-09-2025 End: 02-09-2025 ambulatory Sridevi Good MD Work Phone: [facility] Work Phone: Start: 01-26-2025 End: 01-26-2025 Patient encounter procedure Sridevi Good MD Work Phone: [facility]-Pre-Surgical Testing Work Phone: Start: 01-26-2025 End: 01-26-2025 ambulatory Sridevi Good MD Work Phone: [facility] Work Phone: Start: 01-26-2025 Encounter for preprocedural laboratory examination Zach Celaya [facility] Start: 01-13-2025 End: 01-13-2025 ambulatory Sridevi Good MD Work Phone: [facility] Work Phone: Start: 01-13-2025 End: 01-13-2025 Patient encounter procedure Sridevi Good MD Work Phone: [facility] Work Phone: Start: 01-10-2025 End: 01-10-2025 Patient encounter procedure Sridevi Good MD Work Phone: [facility] [address] Closed Work Phone: Start: 01-10-2025 End: 01-10-2025 ambulatory Sridevi Good MD Work Phone: [facility] Work Phone: Start: 12-06-2024 Non-patient / Non-visit Sridevi Good MD Work Phone: [facility] Work Phone: Start: 12-03-2024 End: 12-03-2024 Emergency department patient visit SRIDEVI GOOD [facility] Start: 12-03-2024 End: 12-03-2024 ambulatory Sridevi Good MD Work Phone: [facility] Work Phone: Start: 12-03-2024 End: 12-03-2024 Patient encounter procedure Sridevi Good MD Work Phone: [facility] [place] Work Phone: Start: 12-02-2024 End: 12-02-2024 ambulatory Sridevi Good MD Work Phone: [facility] Work Phone: Start: 12-02-2024 End: 12-02-2024 Patient encounter procedure Sridevi Good MD Work Phone: [facility] Work Phone: Start: 11-22-2024 End: 11-22-2024 ambulatory Sridevi Good MD Work Phone: [facility] Work Phone: Start: 11-22-2024 End: 11-22-2024 Patient encounter procedure Sridevi Good MD Work Phone: [facility] [place] Work Phone: Start: 11-11-2024 End: 11-11-2024 ambulatory Sridevi Good MD Work Phone: [facility] Work Phone: Start: 11-11-2024 End: 11-11-2024 Patient encounter procedure Sridevi Good MD Work Phone: [facility] [place] Work Phone: Start: 11-11-2024 End: 11-11-2024 ambulatory KIMI CHANDLER Not Available Start: 11-09-2024 End: 11-09-2024 ambulatory Kimi Pughy [employer] [facility] Comment on above: Acute pain of left s houlder (Primary Dx); Cervical paraspinal muscle spasm Start: 11-05-2024 End: 11-05-2024 Bamboo flowsheet Kimigil Pughy [employer] [facility] Start: 11-05-2024 End: 11-05-2024 Bamboo flowsheet Kimigil Pughy [employer] [facility] Start: 11-05-2024 End: 11-05-2024 ambulatory Kimigil Pughy [employer] [facility] Comment on above: Acute pain of left s houlder (Primary Dx); Cervical paraspinal muscle spasm Start: 11-02-2024 End: 11-02-2024 Bamboo flowsheet Arthur Brink [employer] [facility] Start: 11-02-2024 End: 11-02-2024 Bamboo flowsheet Arthur Brink [employer] [facility] Start: 11-02-2024 End: 11-02-2024 ambulatory Arthur Brink [employer] [facility] Comment on above: Acute pain of left s houlder (Primary Dx); Cervical paraspinal muscle spasm Start: 10-28-2024 End: 10-28-2024 ambulatory Kimi Pughy [employer] [facility] Comment on above: Acute pain of left s houlder (Primary Dx); Cervical paraspinal muscle spasm Start: 10-26-2024 End: 10-26-2024 Bamboo flowsheet Kimi Pughy [employer] [facility] Start: 10-26-2024 End: 10-26-2024 Bamboo flowsheet Kimi Pughy [employer] [facility] Start: 10-26-2024 End: 10-26-2024 ambulatory Kimi Pguhy [employer] [facility] Comment on above: Acute pain of left s houlder (Primary Dx); Cervical paraspinal muscle spasm Start: 10-21-2024 End: 10-21-2024 Bamboo flowsheet Kimi Pughy [employer] [facility] Start: 10-21-2024 End: 10-21-2024 Bamboo flowsheet Kimi Pughy [employer] [facility] Start: 10-21-2024 End: 10-21-2024 ambulatory Kimi Pughy [employer] [facility] Comment on above: Acute pain of left s houlder (Primary Dx); Cervical paraspinal muscle spasm Start: 10-14-2024 End: 10-14-2024 Bamboo flowsheet Kimi Pughy [employer] [facility] Start: 10-14-2024 End: 10-14-2024 Bamboo flowsheet Kimi Pughy [employer] [facility] Start: 10-14-2024 End: 10-14-2024 ambulatory KIMI CHANDLER Not Available Start: 10-11-2024 End: 10-11-2024 ambulatory Bebe Huston PT Work Phone: [facility] Comment on above: Acute pain of left s houlder (Primary Dx); Cervical paraspinal muscle spasm Start: 10-11-2024 End: 10-11-2024 Bamboo flowsheet Bebe Huston PT Work Phone: [facility] Start: 10-11-2024 End: 10-11-2024 Bamboo flowsheet Bebe Huston PT Work Phone: [facility] Start: 10-04-2024 End: 10-04-2024 Telephone encounter Arthur Roldan [employer] [facility] Comment on above: re: PT today Start: 10-01-2024 End: 10-01-2024 Bamboo flowsheet Kimi Chandler [employer] [facility] Start: 10-01-2024 End: 10-01-2024 Bamboo flowsheet Kimi Chandler [employer] [facility] Start: 10-01-2024 End: 10-01-2024 ambulatory Kimi Chandler [employer] [facility] Comment on above: Acute pain of left s houlder (Primary Dx); Cervical paraspinal muscle spasm Start: 09-29-2024 End: 09-29-2024 Bamboo flowsheet Bebe Huston PT Work Phone: [facility] Start: 09-29-2024 End: 09-29-2024 Bamboo flowsheet Bebe Huston PT Work Phone: [facility] Start: 09-29-2024 End: 09-29-2024 ambulatory Bebe Huston PT Work Phone: [facility] Comment on above: Acute pain of left s houlder (Primary Dx); Cervical paraspinal muscle spasm Start: 09-13-2024 End: 09-13-2024 Patient encounter procedure Sridevi Good MD Work Phone: [facility] Work Phone: Start: 08-17-2024 End: 08-17-2024 Departed Referred MD Sridevi Good Work Phone: [facility] [place] Work Phone: Start: 08-17-2024 End: 08-17-2024 ambulatory Sridevi Good [facility] Work Phone: Start: 08-17-2024 End: 08-17-2024 Patient encounter procedure [facility] Work Phone: Start: 06-10-2024 End: 06-10-2024 ambulatory [facility] Work Phone: Start: 06-10-2024 End: 06-10-2024 Patient encounter procedure [facility] Work Phone: Start: 05-31-2024 End: 05-31-2024 ambulatory [facility] Work Phone: Start: 05-31-2024 End: 05-31-2024 Patient encounter procedure [facility] Work Phone: Start: 01-15-2024 End: 01-15-2024 ambulatory [facility] Work Phone: Start: 01-15-2024 End: 01-15-2024 Patient encounter procedure [facility] Work Phone: Start: 12-22-2023 Non-patient / Non-visit [facility] Work Phone: Start: 12-11-2023 Non-patient / Non-visit [facility] Work Phone: Start: 11-14-2023 End: 11-14-2023 ambulatory Sridevi Good Other [employer] Other Start: 11-14-2023 Office outpatient vi sit 15 minutes Sridevi Good [facility] Start: 11-04-2023 End: 11-04-2023 ambulatory Sridevi Good Other [employer] Other Start: 11-04-2023 Telephone encounter Sridevi Good [facility] Start: 10-14-2023 End: 10-14-2023 ambulatory Sridevi Good Other [employer] Other Start: 10-14-2023 Telephone encounter Sridevi Good [facility] Start: 10-10-2023 End: 10-10-2023 ambulatory Sridevi Good Other [employer] Other Start: 10-10-2023 Telephone encounter Sridevi Good [facility] Start: 10-07-2023 End: 10-07-2023 ambulatory Sridevi Good Other [employer] Other Start: 10-07-2023 Telephone encounter Sridevi Good [facility] Start: 09-12-2023 End: 09-12-2023 ambulatory Sridevi Good Other [employer] Other Start: 09-12-2023 Telephone encounter Sridevi Good [facility] Start: 08-08-2023 End: 08-08-2023 ambulatory Sridevi Good Other [employer] Other Start: 08-08-2023 Telephone encounter Sridevi Good [facility] Start: 08-05-2023 End: 08-05-2023 ambulatory Sridevi Good Other [employer] Other Start: 08-05-2023 Telephone encounter Sridevi Good [facility] Start: 07-24-2023 End: 07-24-2023 ambulatory Sridevi Good Other [employer] Other Start: 07-24-2023 Telephone encounter Sridevi Good [facility] Start: 07-08-2023 End: 07-08-2023 ambulatory Sridevi Good Other [employer] Other Start: 07-08-2023 Telephone encounter Sridevi Good [facility] Start: 06-13-2023 End: 06-13-2023 ambulatory Sridevi Good Other [employer] Other Start: 06-13-2023 Telephone encounter Sridevi Good [facility] Start: 06-12-2023 End: 06-12-2023 ambulatory Sridevi Good Other [employer] Other Start: 06-12-2023 Office outpatient vi sit 15 minutes Sridevi Good [facility] Start: 06-12-2023 Telephone encounter Sridevi Good [facility] Start: 06-05-2023 End: 06-05-2023 ambulatory Sridevi Good Other [employer] Other Start: 06-05-2023 Telephone encounter Sridevi Good [facility] Start: 04-23-2023 End: 04-23-2023 ambulatory Sridevi Good Other [employer] Other Start: 04-23-2023 Telephone encounter Sridevi Good [facility] Start: 02-07-2023 End: 02-07-2023 ambulatory Sridevi Good Other [employer] Other Start: 02-07-2023 Telephone encounter Sridevi Good [facility] Start: 02-04-2023 End: 02-04-2023 ambulatory Sridevi Good Other [employer] Other Start: 02-04-2023 Telephone encounter Sridevi Good [facility] Start: 01-28-2023 End: 01-28-2023 ambulatory Sridevi Good Other [employer] Other Start: 01-28-2023 Telephone encounter Sridevi Good [facility] Start: 01-24-2023 End: 01-24-2023 ambulatory Sridevi Good Other [employer] Other Start: 01-24-2023 Telephone encounter Sridevi Good [facility] Start: 01-23-2023 End: 01-23-2023 ambulatory Sridevi Good Other [employer] Other Start: 01-23-2023 Telephone encounter Sridevi Good [facility] Start: 12-12-2022 End: 12-12-2022 ambulatory Sridevi Good Other [employer] Other Start: 12-12-2022 Telephone encounter Sridevi Good [facility] Start: 12-03-2022 End: 12-03-2022 ambulatory Sridevi Good Other [employer] Other Start: 12-03-2022 Telephone encounter Sridevi Good [facility] Start: 11-08-2022 (Televisit) Televisit Sridevi Good [facility] Start: 11-08-2022 End: 11-08-2022 ambulatory Sridevi Good Other [employer] Other Start: 07-22-2022 End: 07-23-[address] SRIDEVI GOOD Facility:[facility] Start: 06-21-2022 End: 06-21-2022 ambulatory Sunday Puma Other [employer] Other Start: 06-21-2022 Telephone encounter Sunday Puma [facility] Start: 05-14-2022 End: 05-14-2022 ambulatory Sunday Puma Other [employer] Other Start: 05-14-2022 Telephone encounter Sunday Puma [facility] Start: 05-06-2022 End: 05-06-2022 ambulatory Sunday Puma Other [employer] Other Start: 05-06-2022 Telephone encounter Usnday Puma [facility] Start: 02-04-2022 End: 02-04-[address] SRIDEVI GOOD Facility:[facility] Procedures Date Procedure Procedure Detail Performing Clinician Start: 02-09-2025 OR Shoulder Scope RCR/Biceps Tendon (Left) Sridevi Good MD Work Phone: Start: 01-10-2025 MRI of left shoulder Sebas Good MD Work Phone: Start: 11-11-2024 X-ray of right ankle Sebas Good MD Work Phone: Start: 08-17-2024 Urine culture Sridevi loera MD Work Phone: Screening for malign ant neoplasm of breast Sridevi Good Other Plan of Treatment Date Care Activity Detail Author Start: 02-09-2025 End: 02-09-2025 [facility] Start: 11-09-2024 End: 11-09-2024 ambulatory 11/09/2024 10:00 AM EST Treatment [facility] [address] [place] [address] KelJanine corralesissa, [employer] [facility] Start: 11-05-2024 End: 11-05-2024 ambulatory 11/05/2024 10:00 AM EST Treatment [facility] [address] [place] [address] KelJanine corralesissa, [employer] [facility] Start: 11-02-2024 End: 11-02-2024 ambulatory 11/02/2024 10:30 AM EST Treatment [facility] [address] [place] [address] KelJanine corralesissa, [employer] [facility] Start: 10-28-2024 End: 10-28-2024 ambulatory 10/28/2024 10:00 AM EST Treatment [facility] [address] [place] [address] KelJanine corralesissa, [employer] [facility] Start: 10-26-2024 End: 10-26-2024 ambulatory 10/26/2024 10:00 AM EST Treatment [facility] [address] [place] [address] Janine Chandlerissa, [employer] [facility] Start: 10-21-2024 End: 10-21-2024 ambulatory 10/21/2024 10:00 AM EST Treatment [facility] [address] [place] [address] Janine Chandlerissa, [employer] [facility] Start: 10-19-2024 End: 10-19-2024 ambulatory 10/19/2024 10:00 AM EST Treatment [facility] [address] [facility] [address] [place] [address] Kimi Chandler PTA [facility] Start: 10-14-2024 End: 10-14-2024 ambulatory [facility] Comment on above: Acute pain of left s houlder (Primary Dx); Cervical paraspinal muscle spasm Start: 10-11-2024 End: 10-11-2024 ambulatory [facility] Comment on above: Arrived Start: 10-07-2024 End: 10-07-2024 ambulatory 10/07/2024 3:30 PM EST Treatment [facility] [address] [facility] [address] [place] [address] Arthur Roldan K[employer]TER [employer] [facility] Start: 10-04-2024 End: 10-04-2024 ambulatory 10/04/2024 4:00 PM EST Treatment [facility] [address] [facility] [address] [place] [address] Arthur Roldan PTA [facility] Start: 10-01-2024 End: 10-01-2024 ambulatory [facility] Comment on above: Arrived Start: 09-29-2024 End: 09-29-2024 ambulatory 09/29/2024 8:00 AM EST Evaluation [facility] [address] [facility] [address] [place] [address] Bebe Huston, PT [address] [facility] [address] [place] [address] Arrived [facility] Comment on above: Arrived Start: 08-17-2024 Bacteria identified in Urine by Culture Urine Culture [facility] Start: 08-17-2024 End: 08-17-2024 Urine culture [facility] Start: 06-13-2024 Influenza vaccination Influenza Vacc ine (#1) [facility] Start: 2017 Screening for malign ant neoplasm of breast Mammogram [facility] Start: 2007 Screening for malign ant neoplasm of cervix [facility] Start: 1998 Screening for malign ant neoplasm of cervix Pap Smear [facility] Start: 1977 Screening for malign ant neoplasm of colon [facility] MR Shoulder - left W O contrast [facility] Patient Education Know your Meds [facility] Work Phone: XR Ankle - right GE 3 Views [facility] XR Cervical spine 5 Views [facility] XR Shoulder - left Views [facility] Immunizations Immunization Date Immunization Notes Care Provider Fa cility 09-01-2021 COVID-19 mRNA, Comirnaty (Pfizer) Sridevi Good MD Work Phone: [facility] 08-11-2021 COVID-19 mRNA, Comirnaty (Pfizer) Sridevi Good MD Work Phone: [facility] Payers Date Payer Category Payer Self-pay [id number] 2017 [facility] 1.2.8 [id number] 1977 Unknown [id number] 2.16.84 [id number] 1977 Unknown [id number] 2.16.84 0.1.384554.3.579.2.593 1977 Unknown [id number] 2.16.84 0.1.951658.3.579.2.1259 1977 Unknown [id number] 2.16.84 0.1.360208.3.579.2.1259 1977 Unknown [id number] 2.16.84 0.1.950059.3.579.2.1259 1977 Unknown [id number] 2.16.84 0.1.009126.3.579.2.1259 1977 Unknown [id number] 2.16.84 0.1.112986.3.579.2.1259 1977 Unknown [id number] 2.16.84 0.1.324167.3.579.2.1259 1977 Unknown [id number] 2.16.84 0.1.254896.3.579.2.9 1977 Unknown [id number] 2.16.84 0.1.046278.3.579.2.9 1977 Unknown [id number] 2.16.84 0.1.615197.3.579.2.9 1977 Unknown [id number] 2.16.84 0.1.895156.3.579.2.1259 1977 Unknown [id number] 2.16. [id number] 1959 [facility] HUM [id number] Unknown [id number] 2.16.8 [id number] Unknown [id number] 2.16.8 [id number] Unknown [id number] 2.16.8 [id number] Social History Date Type Detail Facility Sex Assigned At [employer] Other Start: 06-12-2023 End: 06-12-2023 Tobacco smoking status VTIS Never smoked tobacco (finding) [facility] Start: 1975 Sex Assigned At Female [facility] Tobacco smoking status [facility] Tobacco smoking consumption unknown [facility] Start: 1975 Sex assigned at Not on file [facility] Start: 11-11-2024 End: 03-15-2025 Sex Female (finding) [facility] Start: 11-22-2024 End: 01-26-2025 Tobacco smoking status [facility] Ex-smoker (finding) [facility] NEGATED: Highlighted row [facility] Medical Equipment Procedure Code Equipment Code Equipment Origin al Text Equipment Identifier Dates Tendon/ligament bone anchor, non-bioabsorbable ([id number] FDA Start: 02-09-2025 Tendon/ligament bone anchor, non-bioabsorbable ()[id number] FDA Start: 02-09-2025 Tendon/ligament bone anchor, bioabsorbable ()[id number] FDA Start: 02-09-2025 Tendon/ligament bone anchor, bioabsorbable ()[id number] FDA Start: 02-09-2025 Tendon/ligament bone anchor, bioabsorbable ()[id number] FDA Start: 02-09-2025 Goals Date Patient Goal Desired Activity /State Clinical Notes 05-06-2022 to 01-13-2025 Note Date & Type Note Facility 01-13-2025 Evaluation note Diagnosis Onset Date Resolution Bicipital tendinitis, left shoulder acute January 13, 2025 7:53am Degenerative disc disease, cervical acute January 13, 2025 7:53am Left rotator cuff tear acute 2024 7:53am Pain in left acromioclavicular joint acute January 7:53am Rotator cuff impingement syndrome of left shoulder acute January 13, 2025 7:53am Rotator cuff syndrome of left shoulder acute January 13, 2025 7:53am Bicipital tendinitis, left shoulder acute February 22, 2025 2:41pm Degenerative disc disease, cervical acute February 22, 2025 2:41pm Encounter for removal of sutures acute February 22, 2025 2:41pm Left rotator cuff tear acute 2024 2:41pm Pain in left acromioclavicular joint acute February 2:41pm Rotator cuff impingement syndrome of left shoulder acute February 222024 2:41pm Rotator cuff syndrome of left shoulder acute February 22, 2025 2:41pm Status post arthroscopy of left shoulder acute February 22, 2025 2:41pm Anemia acute March 15, 2025 10:58am Well adult exam acute March 15, 2025 10:58am [facility] Work Phone: 1(622) 527-506302-20-2025 Evaluation note* Diagnosis Onset Date Resolution Status Admit Date Degenerative disc disease, cervical acute December 02, 2 025 9:00am Rotator cuff syndrome of lef t shoulder acute December 02, 2 025 9:00am Chest pain acute December 03, 2024 3:59pm Bicipital tendinitis, left shoulder acute January 13, 2025 7:53am Degenerative disc disease, cervical acute January 13, 2025 7:53am Left rotator cuff tear acute Ap 2024 7:53am Pain in left acromioclavicul ar joint acute January 13, 2025 7:53am Rotator cuff impingement syn drome of left shoulder acute January 13, 2025 7:53am Rotator cuff syndrome of lef t shoulder acute January 13, 2025 7:53am Bicipital tendinitis, left shoulder acute February 22, 2025 2 :41pm Degenerative disc disease, cervical acute February 22, 2025 2 :41pm Encounter for removal of sutures acu te February 22, 2025 2:41pm Left rotator cuff tear acute Ma 2024 2:41pm Pain in left acromioclavicul ar joint acute February 22, 2025 2 :41pm Rotator cuff impingement syn drome of left shoulder acute February 22, 2025 2:41pm Rotator cuff syndrome of lef t shoulder acute February 22, 2025 2 :41pm Status post arthroscopy of l eft shoulder acute February 22, 2025 2 :41pm [facility] Work Phone: 1(793) 525-316801-30-2025 Evaluation note* Diagnosis Onset Date Resolution Status Admit Date Right ankle injury noneactive Januar y 2024 3:09pm Influenza A acute November 9:47am Degenerative disc disease, cervical acute December 02, 2 025 9:00am Rotator cuff syndrome of left shoulder acute December 02, 2 025 9:00am Chest pain acute December 03, 2024 3:59pm [facility] Work Phone: 1(485) 248-758101-30-2025 Evaluation note* Diagnosis Onset Date Resolution Status Admit Date Right ankle injury noneactive Januar y 2024 3:09pm Influenza A acute November 9:47am Degenerative disc disease, cervical acute December 02, 2 025 9:00am Rotator cuff syndrome of left shoulder acute December 02, 2 025 9:00am Chest pain acute December 03, 2024 3:59pm Degenerative disc disease, cervical acute January 13, 2025 7:53am Rotator cuff syndrome of left shoulder acute January 13, 2025 7:53am [facility] Work Phone: 1(284) 455-379601-30-2025 Evaluation note* Diagnosis Onset Date Resolution Status Admit Date Right ankle injury noneactive Ruchi y 2024 3:09pm Influenza A acute November 9:47am Degenerative disc disease, cervical acute December 02, 2 025 9:00am Rotator cuff syndrome of lef t shoulder acute December 02, 2 025 9:00am Chest pain acute December 03, 2024 3:59pm Bicipital tendinitis, left shoulder acute January 13, 2025 7:53am Degenerative disc disease, cervical acute January 13, 2025 7:53am Left rotator cuff tear acute Ap 2024 7:53am Pain in left acromioclavicul ar joint acute January 13, 2025 7:53am Rotator cuff impingement syndrome of left shoulder acute January 13, 2025 7:53am Rotator cuff syndrome of lef t shoulder acute January 13, 2025 7:53am [facility] Work Phone: 1([phone]) 748-442612-30-2024 History of Present illness Narrative* Bebe Huston, PT - 10/11/2024 3:30 PM EST Images from the original note were not included. Physical Therapy Treatment Visit Patient Name: Dylan Mooney Today's Date: 10/11/2024 Encounter Diagnoses Name Primary? Acute pain of left shoulder Yes Cervical paraspinal muscle spasm Visit number: 3 Timed Code Treatment Minutes: 38 minutes Total Treatment Time: 56 minutes Time In: 330 PM Time Out: 426 PM History: Pt. Presents to PT with c/c of left shoulder pain which started getting worse in the last couple months. Also, pt having left sided neck pain. Pt. Reports she had a cervical spacer surgery 2years. Pt. Reports shoulder pain limits her ability to perform daily tasks and increased pain whilelifting. Occasional N/T in left arm. Precautions: C5-6 cervical spacer, lumbar surgery Subjective: Pt. Reports shoulder is slight improvement. Continues to have anterior shoulder pain. Pain: 8/10 worst; 3/10 today Objective: PT Evaluation (09/29/24) Left shoulder AROM: flexion 150 deg, abduction 140 deg, ER C5, IR L4 Left shoulder PROM: flexion 160 deg, abduction 160 deg, Palpation: TTP subacrominal space area and left cervical paraspinal muscles Strength: left shoulder flexion 4+/5, abduction 4/5, ER 4/5 Neck ROM: rotation 35-40 degrees bilateral, SB 30 deg bilateral Flexibility: left upper trapezius muscle tightness, Posture: thoracic kyphosis, rounded shoulders Treatment: Manual Therapy: (16 minutes) Delivered manual ther pt supine PROM to L UE in all planes, STM to anterior shoulder to improve mobility and decrease pain Therapeutic Exercise: (24 minutes supervised) Guided pt through ther and flex exercises in grid; Strength, Endurance, Flexibility, ROM, HEP, Neural Mobilization, Power, and Core Stability Therapeutic Activity: Exercises to improve dynamic activities, functional tasks, functional mobility to return to prior activity level Neuromuscular re-education: Balance Training, Muscle Facilitation, Dynamic Stability, Core Stabilization, and Blood Flow Restriction Training (BFRT) Modalities: Post session ( 15 minutes )pt seated IFC/CP to L shoulder to decrease muscle soreness Assessment: Pt has participated in 3 PT session with start of POC on 09/29 for left shoulder impingement syndrome. Mild muscle soreness post I.E resolved with icing and rest. Pt. Continues to demonstrates bicepstendon pain. Added band exercises to POC today and pt. Tolerated well. Outcome Measure: 54/80 UEFS Short Term Goal: To be met in 2 weeks Goal 1: Pt to be instructed in home exercise program. [facility] Goals: To be met in 10 weeks Goal 1: Pt to report independence and compliance with home program. Goal 2: Pt. Will report of 0/10 left shoulder pain while reaching/lifting objects overhead to help improve her quality of life. Goal 3: Pt. Will demonstrate normal cervical spine ROM grossly in all planes to allow her to lift/carry objects to return to PLOF. Goal 4: Pt. Will demonstrate 170 degrees or greater left shoulder flexion/abduction ROM to allow her to lift/carry objects overhead to help improve her functional mobility and return to prior level of function. Goal 5: Pt will demonstrates 5/5 left shoulder strength grossly in all planes to allow her to lift/carry objects to help improve her quality of life. Goal 6: Pt. Will demonstrate 5/5 scapular muscle strength to help improve upright posture to decrease stress on shoulder while performing overhead tasks. Pt will benefit from skilled PT for 2x/week from 09/29/24 to 12/08/24 to address the above impairments. I hereby deem this POC medically necessary. Please sign below. Date: documented in this [facility]12-23-2024 Telephone encounter Note* Telephone Encounter - Yazmin Fagan - 10/04/2024 2:51 PM EST She called noting she was contacted by daughter who was heading home sick from work; she was going to pick-up granddaughter. She said she'll be here 10/07 @ 3:30. [facility] [id number] Miscellaneous Notes* Telephone Encounter - Yazmin Fagan - 10/04/2024 2:51 PM EST She called noting she was contacted by daughter who was heading home sick from work; she was going to pick-up granddaughter. She said she'll be here 10/07 @ 3:30. documented in this [facility]12-18-2024 History of Present illness Narrative* Bebe Huston, PT - 09/29/2024 8:00 AM EST Images from the original note were not included. Physical Therapy Evaluation Visit Patient Name: Dylan Mooney Today's Date: 09/29/2024 Encounter Diagnoses Name Primary? Acute pain of left shoulder Yes Cervical paraspinal muscle spasm Visit number: 1 Timed Code Treatment Minutes: 50 minutes Total Treatment Time: 50 minutes Time In: 0800 Time Out: 0850 History: Pt. Presents to PT with c/c of left shoulder pain which started getting worse in the last couple months. Also, pt having left sided neck pain. Pt. Reports she had a cervical spacer surgery 2years. Pt. Reports shoulder pain limits her ability to perform daily tasks and increased pain whilelifting. Occasional N/T in left arm. Precautions: C5-6 cervical spacer, lumbar surgery Subjective Pain: 8/10 worst; 3/10 today Objective: PT Evaluation (09/29/24) Left shoulder AROM: flexion 150 deg, abduction 140 deg, ER C5, IR L4 Left shoulder PROM: flexion 160 deg, abduction 160 deg, Palpation: TTP subacrominal space area and left cervical paraspinal muscles Strength: left shoulder flexion 4+/5, abduction 4/5, ER 4/5 Neck ROM: rotation 35-40 degrees bilateral, SB 30 deg bilateral Flexibility: left upper trapezius muscle tightness, Posture: thoracic kyphosis, rounded shoulders Treatment: PT evaluation (20 minutes) Education: HEP education with demonstration, Educated on Eval Findings and POC Manual Therapy: (16 minutes) mFR left shoulder, cervical SOR, distraction, UT stretching, Passive ROM, Joint mobilization, Soft Tissue Mobilization, Myofascial Release, Muscle Energy Technique, Neural Mobilization, Myofascial Cupping, Dry Needling, IASTM, and Scar mobilization Therapeutic Exercise: (14 minutes) exercises in grid; Strength, Endurance, Flexibility, ROM, HEP, Neural Mobilization, Power, and Core Stability Therapeutic Activity: Exercises to improve dynamic activities, functional tasks, functional mobility to return to prior activity level Neuromuscular re-education: Balance Training, Muscle Facilitation, Dynamic Stability, Core Stabilization, and Blood Flow Restriction Training (BFRT) Modalities: Heat, Ice, Electrical Stimulation, Ultrasound, Cervical Mechanical Traction, Lumbar Mechanical Traction, Iontophoresis, and Fluidotherapy Assessment: Pt. Has participated in 1 PT session with start of POC on 09/29 for left shoulder impingement syndrome affecting her quality of life. Pt. Will benefit from skilled PT services. PT treatment to focus on improving scapular strength, flexibility, and mobility. Outcome Measure: 54/80 UEFS Short Term Goal: To be met in 2 weeks Goal 1: Pt to be instructed in home exercise program. [employer] Goals: To be met in 10 weeks Goal 1: Pt to report independence and compliance with home program. Goal 2: Pt. Will report of 0/10 left shoulder pain while reaching/lifting objects overhead to help improve her quality of life. Goal 3: Pt. Will demonstrate normal cervical spine ROM grossly in all planes to allow her to lift/carry objects to return to PLOF. Goal 4: Pt. Will demonstrate 170 degrees or greater left shoulder flexion/abduction ROM to allow her to lift/carry objects overhead to help improve her functional mobility and return to prior level of function. Goal 5: Pt will demonstrates 5/5 left shoulder strength grossly in all planes to allow her to lift/carry objects to help improve her quality of life. Goal 6: Pt. Will demonstrate 5/5 scapular muscle strength to help improve upright posture to decrease stress on shoulder while performing overhead tasks. Pt will benefit from skilled PT for 2x/week from 09/29/24 to 12/08/24 to address the above impairments. I hereby deem this POC medically necessary. Please sign below. Date: documented in this [facility]12-02-2024 Evaluation note* Diagnosis Onset Date Resolution Status Admit Date Degenerative disc disease, cervical acute September 13 1:34pm Rotator cuff syndrome of left shoulder acute September 13 1:34pm Right ankle injury noneactive Ruchi denise 2024 3:09pm [facility] Work Phone: 1(405) 660-630712-02-2024 Evaluation note* Diagnosis Onset Date Resolution Status Admit Date Degenerative disc disease, cervical acute September 13 1:34pm Rotator cuff syndrome of left shoulder acute September 13 1:34pm Right ankle injury noneactive Susier 2024 3:09pm Influenza A acute November 9:47am Degenerative disc disease, cervical acute December 02, 2 025 9:00am Rotator cuff syndrome of left shoulder acute December 02 025 9:[address] [facility] Work Phone: 1(364) 238-234411-05-2024 Evaluation note* Diagnosis Onset Date Resolution Status Admit Date Anxiety and depression acute No vember 2023 9:53am Cervical radicular pain acute N ovember 2023 9:53am Dysuria acute August 17, 2024 9:53am Degenerative disc disease, cervical acute September 13 1:34pm Rotator cuff syndrome of left shoulder acute September 13 1:34pm Right ankle injury noneactive Octua2024 3:09pm [facility] Work Phone: 1(600) 720-705202-02-2024 Evaluation note* Encounter Date Diagnosis Assessment Notes Treatment Notes Treatment Clinical Notes Nov, Acute COVID-19 (ICD-10 - U07.1) Discussed quarantine protocol and symptom management. Pt agrees to paxlovid. Rx sent to pharmacy. [employer] [facility] Other 01-02-2024 Evaluation note* Encounter Date Diagnosis Assessment Notes Treatment Notes Treatment Clinical Notes Oct, Major depressive disorder, recurrent, moderate (ICD-10 - F33.1) [employer] [facility] Other 12-29-2023 Evaluation note* Encounter Date Diagnosis Assessment Notes Treatment Notes Treatment Clinical Notes Sep, Major depressive disorder, recurrent, moderate (ICD-10 - F33.1) [employer] Other 12-26-2023 Evaluation note* Encounter Date Diagnosis Assessment Notes Treatment Notes Treatment Clinical Notes Sep, Major depressive disorder, recurrent, moderate (ICD-10 - F33.1) [employer] Other 12-01-2023 Evaluation note* Encounter Date Diagnosis Assessment Notes Treatment Notes Treatment Clinical Notes Sep, Major depressive disorder, recurrent, moderate (ICD-10 - F33.1) [employer] Other 10-27-2023 Evaluation note* Encounter Date Diagnosis Assessment Notes Treatment Notes Treatment Clinical Notes Jul, Major depressive disorder, recurrent, moderate (ICD-10 - F33.1) [employer] Other 10-12-2023 Evaluation note* Encounter Date Diagnosis Assessment Notes Treatment Notes Treatment Clinical Notes Jul, Major depressive disorder, recurrent, moderate (ICD-10 - F33.1) [employer] Other 09-26-2023 Evaluation note* Encounter Date Diagnosis Assessment Notes Treatment Notes Treatment Clinical Notes Jun, Major depressive disorder, recurrent, moderate (ICD-10 - F33.1) [employer] Other 09-01-2023 Evaluation note* Encounter Date Diagnosis Assessment Notes Treatment Notes Treatment Clinical Notes Jun, Major depressive disorder, recurrent, moderate (ICD-10 - F33.1) [employer] Other 08-31-2023 Evaluation note* Encounter Date Diagnosis Assessment Notes Treatment Notes Treatment Clinical Notes May, Major depressive disorder, recurrent, moderate (ICD-10 - F33.1) [employer] Other 08-31-2023 Evaluation note* Encounter Date Diagnosis Assessment Notes Treatment Notes Treatment Clinical Notes May, Cervical pain (neck) (ICD-10 - M54.2) Dylan relates this pain similar to her neck issues in the past. Check xray. She will contact her neurosurgeon. Declines PT. Recommend heat therapy for pain [employer] Other 08-24-2023 Evaluation note* Encounter Date Diagnosis Assessment Notes Treatment Notes Treatment Clinical Notes May, Major depressive disorder, recurrent, moderate (ICD-10 - F33.1) [employer] Other 07-12-2023 Evaluation note* Encounter Date Diagnosis Assessment Notes Treatment Notes Treatment Clinical Notes Apr, Major depressive disorder, recurrent, moderate (ICD-10 - F33.1) [employer] Other 04-28-2023 Evaluation note* Encounter Date Diagnosis Assessment Notes Treatment Notes Treatment Clinical Notes Jan, Major depressive disorder, recurrent, moderate (ICD-10 - F33.1) [employer] Other 04-25-2023 Evaluation note* Encounter Date Diagnosis Assessment Notes Treatment Notes Treatment Clinical Notes Jan, Major depressive disorder, recurrent, moderate (ICD-10 - F33.1) [employer] Other 04-18-2023 Evaluation note* Encounter Date Diagnosis Assessment Notes Treatment Notes Treatment Clinical Notes Jan, Major depressive disorder, recurrent, moderate (ICD-10 - F33.1) [employer] Other 04-14-2023 Evaluation note* Encounter Date Diagnosis Assessment Notes Treatment Notes Treatment Clinical Notes Jan, Major depressive disorder, recurrent, moderate (ICD-10 - F33.1) [employer] Other 04-13-2023 Evaluation note* Encounter Date Diagnosis Assessment Notes Treatment Notes Treatment Clinical Notes Jan, Major depressive disorder, recurrent, moderate (ICD-10 - F33.1) [employer] Other 03-02-2023 Evaluation note* Encounter Date Diagnosis Assessment Notes Treatment Notes Treatment Clinical Notes Dec, Acute non-recurrent maxillary sinusitis (ICD-10 - J01.00) [employer] Other 02-21-2023 Evaluation note* Encounter Date Diagnosis Assessment Notes Treatment Notes Treatment Clinical Notes Nov, Major depressive disorder, recurrent, moderate (ICD-10 - F33.1) [employer] Other 01-27-2023 Evaluation note* Encounter Date Diagnosis [...] even if you start to feel better. [employer] Other 09-09-2022 Evaluation note* Encounter Date Diagnosis Assessment Notes Treatment Notes Treatment Clinical Notes Jun, Major depressive disorder, recurrent, moderate (ICD-10 - F33.1) [employer] Other 08-02-2022 Evaluation note* Encounter Date Diagnosis Assessment Notes Treatment Notes Treatment Clinical Notes May, Major depressive disorder, recurrent, moderate (ICD-10 - F33.1) [employer] Other 07-25-2022 Evaluation note* Encounter Date Diagnosis Assessment Notes Treatment Notes Treatment Clinical Notes Apr, Major depressive disorder, recurrent, moderate (ICD-10 - F33.1) [employer] Other Evaluation noteNo InformationNort [employer] Other Evaluation noteNo assessment information available [facility] Work Phone: Evaluation note* Diagnosis Onset Date Resolution Status Anxiety and depression acute Dysuria acute Dysuria acute [facility] Work Phone: Evaluation note* Diagnosis Onset Date Resolution Status Anxiety and depression acute Dysuria acute Dysuria acute Cervical radicular pain acut e Dysuria acute [facility] Work Phone: Evaluation note* Diagnosis Acute pain of left shoulder- Primary Cervical paraspinal muscle spasm Spasm of muscle documented in this encounter [facility]* Diagnosis Acute pain of left shoulder- Primary Cervical paraspinal muscle spasm Spasm of muscle documented in this encounter [facility]* Diagnosis Acute pain of left shoulder- Primary Cervical paraspinal muscle spasm Spasm of muscle documented in this encounter [facility]* Diagnosis Acute pain of left shoulder- Primary Cervical paraspinal muscle spasm Spasm of muscle documented in this encounter [facility]* Diagnosis Acute pain of left shoulder- Primary Cervical paraspinal muscle spasm Spasm of muscle documented in this encounter [facility]* Diagnosis Acute pain of left shoulder- Primary Cervical paraspinal muscle spasm Spasm of muscle documented in this encounter [facility] general Narrative - Reported* Type Description Date Medical History cholecystecomy Medical History lamenectomy 2019 Medical History gastric sleeve Surgical History cholecystectomy Surgical History cholecystectomy, gastric sleeve Surgical History Gastric Sleeve Hospitalization History see above [employer] Other History general Narrative - Reported* Type Description [...] NERVE ROOT FOAMINOTOMY Hospitalization History see above [employer] Other History general Narrative - Reported* Type Description [...] (Dr. Julito tabares) Hospitalization History see above [employer] [facility] Other Hospital Discharge instructions Additional Instructions POSTOPERATIVE INSTRUCTIONS FOR ROTATOR CUFF REPAIR Zach Celaya DO Orthopedic Surgeon [facility] GENERAL INSTRUCTIONS: Use ice packs to the shoulder as much as you can tolerate (30 minutes on/30 minutes off) over the first 48-72 hours post-operatively. DO NOT apply ice directly to the skin. Always place a towel between the ice pack and skin. Low grade temperatures are common after surgery. Please notify the office if your temperature exceeds 101.5 degrees Fahrenheit. DO NOT make critical decisions or sign legal papers for the first 24 hours after surgery or while taking pain medication. MEDICATIONS AND DIET: You may resume all pre-operative medications unless otherwise specified. Only take pain medication as prescribed, as needed. We encourage ambulation to help prevent blood clots from developing in your legs You should take pain medication with food. It is not uncommon to have nausea or an upset stomach after surgery. Medication refills require a 48 hour notice; no exceptions will be made. NO REFILLS will be authorized over the weekend. Do not take extra Tylenol while taking prescription pain medication unless otherwise specified. If you have a reaction to your medications, stop taking them and call the office immediately. If you develop a significant rash, or have trouble breathing, call 911 or go immediately to the nearest emergency room. ACTIVITY: Your operative extremity is in shoulder sling. Please wear this as all times. You may remove this for bathing purposes. You may also come out of the sling 2-3 times per day to perform gentle pendulum exercises as well as gentle movement of your elbow. Do not actively move your shoulder otherwise. Wear the sling while sleeping at night . You are non-weightbearing on your operative arm. DRESSING/BANDAGES: Your surgical bandage may show some drainage over the first 24-48 hours following surgery. Keep steri-strips intact if they are present If your bandage becomes saturated, please notify the office. Your shoulder dressing is to be left on for the first 72 hours after surgery. On the third day after surgery, you may remove your dressing and cover with band-aids as needed DO NOT soak the incision. You may shower once the bandage is off. Allow water to wash over the incisions. Do not scrub the area DO NOT submerge the incision in a bath, hot tub, swimming pool, or any other body of water for the first 4 weeks following surgery. FOLLOW UP: Your first post-operative appointment should already be scheduled for you. If you do not already have a post-operative appointment, our office will contact you to schedule one. You should be seen in the office two weeks following your surgery unless otherwise specified. If you notice any increasing swelling, wound redness, or drainage, please contact our office immediately. Zach Celaya DO Orthopedic Surgeon [facility] Office: [address] [place] [address] Office number: [phone] [facility] Work Phone: [facility] Narrative* Rehabilitation - Outpatient (Routine) - Authorized Specialty Diagnoses / Procedures Referred By Silas t Referred To Contact Physical Therapy Diagnoses Left Rotator Cuff Syndrome, DDD C-spine Procedures RI PHYSICAL THERAPY EVALUATION LOW COMPLEX 20 MINS RI OFFICE/OUTPATIENT [facility] Zach Magallanes MD [address] [place] [address] Phone: tel: fax: Bebe Huston, PT [address] [address] Phone: tel: fax: Referral ID Status Reason Start Date Expiration Date V isits Requested Visits Authorized [id number] Authorized 09/29/2024 03/28/2025 60 60 [facility] HealthcareReason for visit Narrative* Rehabilitation - Outpatient (Routine) - Authorized Specialty Diagnoses / Procedures Referred By Silas marrero Referred To Contact Physical Therapy Diagnoses Left Rotator Cuff Syndrome, DDD C-spine Procedures RI PHYSICAL THERAPY EVALUATION LOW COMPLEX 20 MINS RI OFFICE/OUTPATIENT [facility] Zach Magallanes MD [address] [place] [address] Phone: tel: fax: Bebe Huston, PT [address] [address] Phone: tel: fax: Referral ID Status Reason Start Date Expiration Date V isits Requested Visits Authorized [id number] Authorized 09/29/2024 10/12/2024 60 60 [facility] HealthcareReason for visit Narrative* Rehabilitation - Outpatient (Routine) - Closed Specialty Diagnoses / Procedures Referred By Silas t Referred To Contact Physical Therapy Diagnoses Left Rotator Cuff Syndrome, DDD C-spine Procedures RI PHYSICAL THERAPY EVALUATION LOW COMPLEX 20 MINS RI OFFICE/OUTPATIENT NEW HIGH Zach Magallanes MD [address] [place] [address] Phone: tel: fax: Bebe Huston, PT [address] [address] Phone: tel: fax: Referral ID Status Reason Start Date Expiration Date Visits Re quested Visits Authorized [id number] Closed 09/29/2024 10/12/2024 60 [id number] [facility] N[facility]ative* Rehabilitation - Outpatient (Routine) - Authorized Specialty Diagnoses / Procedures Referred By Silas marrero Referred To Contact Physical Therapy Diagnoses Left Rotator Cuff Syndrome, DDD C-spine Procedures RI THERAPEUTIC PX 1/> AREAS EACH 15 MIN EXERCISES RI THER PX 1/> AREAS EACH 15 MIN NEUROMUSC REEDUCA RI MANUAL THERAPY TQS 1/> REGIONS EACH 15 MINUTES PHYS/OCC THERAPY SS Zach Celaya MD [address] [place] [address] Phone: tel: fax: Bebe Huston, PT [address] [address] Phone: tel: fax: Referral ID Status Reason Start Date Expiration Date V isits Requested Visits Authorized [id number] Authorized 10/13/2024 10/12/2025 60 60 [facility] Healthcare Summary Purpose Family History No Family History Records Found Relationship Condition Age at Onset Recorded Date/T tex father Family history of mental disorder Unknown Malignant neoplasm Unknown High blood cholesterol Unknown Hypertension Unknown Heart disease Unknown Not Specified Malignant neoplasm Unknown Relationship Condition Age at Onset Recorded Date/T tex father Family history of mental disorder Unknown Malignant neoplasm Unknown High blood cholesterol Unknown Hypertension Unknown Heart disease Unknown mother Malignant neoplasm Unknown Relationship Condition Age at Onset Recorded Date/T tex father High blood cholesterol Unknown Heart disease Unknown Family history of mental disorder Unknown Malignant neoplasm Unknown Hypertension Unknown History of heart bypass surgery Unknown Malignant neoplasm of lung Unknown mother Malignant neoplasm Unknown Malignant neoplasm of breast Unknown Advance Directives No Advanced Directives Records Found Advance Directive Response Recorded Date/ Time Advance Directives No November 19, 2020 8:18pm Advance Directive Response Recorded Date/ Time Advance Directives No November 19, 2020 7:18pm Chief Complaint and Reason for Visit Chief Complaint Amb Documentation Amb Documentation discuss adipex Chief Complaint back pain, nausea, p ainful urination Chief Complaint back pain, nausea, p ainful urination UA, pressure feeling Reason for Visit Anxiety and depressi on Dysuria Dysuria Chief Complaint back pain, nausea, p ainful urination UA, pressure feeling Med f/u Reason for Visit Anxiety and depressi on Dysuria Dysuria Cervical radicular pain Dysuria Chief Complaint Admit Date Med f/u August 17, 2024 9 :53am [email or web address] August 17, 2024 1 0:00am CONSULT DR. SRIDEVI GOOD LT SHOULDER [place] N, WX September 13, 2024 1:34pm Right ankle injury s/p fall at home 2024 3:09pm Reason for Visit Admit Date Anxiety and depression August 17 9:53am Cervical radicular pain August 17 9:53am Dysuria August 17, 2024 9 :53am Degenerative disc disease, cervical Dece 2023 1:34pm Rotator cuff syndrome of left shoulder D [email or web address] 1:34pm Right ankle injury November 11, 2024 3 :09pm Chief Complaint Admit Date CONSULT DR. SRIDEVI GOOD LT SHOULDER [place] N, WX September 13, 2024 1:34pm Right ankle injury s/p fall at home 2024 3:09pm S93.401A November 11, 2024 3 :38pm Cough, fever November 22, 2024 9:47am Reason for Visit Admit Date Degenerative disc disease, cervical Dece 2023 1:34pm Rotator cuff syndrome of left shoulder D [email or web address] 1:34pm Right ankle injury November 11, 2024 3 :09pm Chief Complaint Admit Date CONSULT DR. SRIDEVI GOOD LT SHOULDER [place] N, WX September 13, 2024 1:34pm Right ankle injury s/p fall at home 2024 3:09pm S93.401A November 11, 2024 3 :38pm Cough, fever November 22, 2024 9:47am 8 WEEKS December 02, 2024 9:00am Reason for Visit Admit Date Degenerative disc disease, cervical Dece [email or web address] 1:34pm Rotator cuff syndrome of left shoulder D [email or web address] 1:34pm Right ankle injury November 11, 2024 3 :09pm Influenza A November 22, 2024 9:47am Degenerative disc disease, cervical Febr 2024 9:00am Rotator cuff syndrome of left shoulder F [facility]2024 9:00am Chief Complaint Admit Date CONSULT DR. SRIDEVI GOOD LT SHOULDER [place] N, WX September 13, 2024 1:34pm Right ankle injury s/p fall at home Jorge yang 2024 3:09pm S93.401A November 11, 2024 3 :38pm Cough, fever November 22, 2024 9:47am 8 WEEKS December 02, 2024 9:00am cough w mucus, chest tightness December 03, 2024 3:59pm Chief Complaint Admit Date Right ankle injury s/p fall at home Jorge 2024 3:09pm S93.401A November 11, 2024 3 :38pm Cough, fever November 22, 2024 9:47am 8 WEEKS December 02, 2024 9:00am cough w mucus, chest tightness December 03, 2024 3:59pm Amb Documentation December 06, 2024 2:08pm [email or web address] January 10, 2025 7:5 1am Reason for Visit Admit Date Right ankle injury November 11, 2024 3 :09pm Influenza A November 22, 2024 9:47am Degenerative disc disease, cervical Febr 2024 9:00am Rotator cuff syndrome of left shoulder F [facility]2024 9:00am Chest pain December 03, 2024 3:59pm Chief Complaint Admit Date Right ankle [facility] 20[facility] 3:09pm S93.401A November 11, 2024 3 :38pm Cough, fever November 22, 2024 9:47am 8 WEEKS December 02, 2024 9:00am cough w mucus, chest tightness December 03, 2024 3:59pm Amb Documentation December 06, 2024 2:08pm [email or web address] January 10, 2025 7:5 1am MRI RESULTS January 13, 2025 7:53 am Reason for Visit Admit Date Right ankle injury November 11, 2024 3 :09pm Influenza A November 22, 2024 9:47am Degenerative disc disease, cervical Febr 2024 9:00am [facility] 9:00[facility] Chest pain December 03, 2024 3:59pm Degenerative disc disease, cervical Apri l 2024 7:53am Rotator cuff syndrome of left shoulder A [email or web address] 7:53am Chief Complaint Admit Date Right ankle injury s/p fall at home Jorge soria 2024 3:09pm [id number] November 11, 2024 3 :38pm Cough, fever November 22, 2024 9:47am 8 WEEKS December 02, 2024 9:00am cough w mucus, chest tightness December 03, 2024 3:59pm Amb Documentation December 06, 2024 2:08pm [email or web address] January 10, 2025 7:5 1am MRI RESULTS January 13, 2025 7:53 am Shoulder pain January 26, 2025 3:3 3pm Reason for Visit Admit Date Right ankle injury November 11, 2024 3 :09pm Influenza A November 22, 2024 9:47am Degenerative disc disease, cervical Febr uary 2024 9:00am Rotator cuff syndrome of left shoulder F [facility] 2024 9:00am Chest pain December 03, 2024 3:59pm Bicipital tendinitis, left shoulder Apri l 2024 7:53am Degenerative disc disease, cervical Apri l 2024 7:53am Left rotator cuff tear January 13, 2025 7 :53am Pain in left acromioclavicular joint Apr il 2024 7:53am Rotator cuff impingement syndrome of lef t shoulder January 13, 2025 7:53am Rotator cuff syndrome of left shoulder A [email or web address] 7:53am Chief Complaint Admit Date Right ankle injury s/p fall at home Jorge 2024 3:09pm [id number] November 11, 2024 3 :38pm Cough, fever November 22, 2024 9:47am 8 WEEKS December 02, 2024 9:00am cough w mucus, chest tightness December 03, 2024 3:59pm Amb Documentation December 06, 2024 2:08pm [email or web address] January 10, 2025 7:5 1am MRI RESULTS January 13, 2025 7:53 am Shoulder pain January 26, 2025 3:3 3pm Shoulder pain February 09, 2025 8:3 5am Shoulder pain February 09, 2025 12: 04pm Chief Complaint Admit Date 8 WEEKS December 02, 2024 9:00am cough w mucus, chest tightness December 03, 2024 3:59pm Amb Documentation December 06, 2024 2:08pm [email or web address] January 10, 2025 7:5 1am MRI RESULTS January 13, 2025 7:53 am Shoulder pain January 26, 2025 3:3 3pm Shoulder pain February 09, 2025 8:3 5am Shoulder pain February 09, 2025 12: 04pm S/P R TSA February 11, 2025 1:36pm 10-14 days post op February 22, 2025 2:41p m Reason for Visit Admit Date Degenerative disc disease, cervical Febr uary 2024 9:00am Rotator cuff syndrome of left shoulder F ebruary 2024 9:00am Chest pain December 03, 2024 3:59pm Bicipital tendinitis, left shoulder Apri l 2024 7:53am Degenerative disc disease, cervical Apri l 2024 7:53am Left rotator cuff tear January 13, 2025 7 :53am Pain in left acromioclavicular joint Apr il 2024 7:53am Rotator cuff impingement syndrome of lef t shoulder January 13, 2025 7:53am Rotator cuff syndrome of left shoulder A pril 2024 7:53am Bicipital tendinitis, left shoulder February 22, 2025 2:41pm Degenerative disc disease, cervical February 22, 2025 2:41pm Encounter for removal of sutures February 2:41pm Left rotator cuff tear February 22, 2025 2: 41pm Pain in left acromioclavicular joint February 22, 2025 2:41pm Rotator cuff impingement syndrome of lef t shoulder February 22, 2025 2:41pm Rotator cuff syndrome of left shoulder M ay 2024 2:41pm Status post arthroscopy of left shoulder February 22, 2025 2:41pm Chief Complaint Admit Date [email or web address] January 10, 2025 7:5 1am MRI RESULTS January 13, 2025 7:53 am Shoulder pain January 26, 2025 3:3 3pm Shoulder pain February 09, 2025 8:3 5am Shoulder pain February 09, 2025 12: 04pm 10-14 days post op February 22, 2025 2:41p m S/P L RTC March 11, 2025 10:45 am Wellness March 15, 2025 10:58 am Reason for Visit Admit Date Bicipital tendinitis, left shoulder Apri l 2024 7:53am Degenerative disc disease, cervical Apri l 2024 7:53am Left rotator cuff tear January 13, 2025 7 :53am Pain in left acromioclavicular joint Apr il 2024 7:53am Rotator cuff impingement syndrome of lef t shoulder January 13, 2025 7:53am Rotator cuff syndrome of left shoulder A pril 2024 7:53am Bicipital tendinitis, left shoulder February 22, 2025 2:41pm Degenerative disc disease, cervical February 22, 2025 2:41pm Encounter for removal of sutures February 2:41pm Left rotator cuff tear February 22, 2025 2: 41pm Pain in left acromioclavicular joint February 22, 2025 2:41pm Rotator cuff impingement syndrome of lef t shoulder February 22, 2025 2:41pm Rotator cuff syndrome of left shoulder M ay 2024 2:41pm Status post arthroscopy of left shoulder February 22, 2025 2:41pm Anemia March 15, 2025 10:58 am Well adult exam March 15, 2025 10:58 am Additional Source Comments REASON FOR VISIT (unrecogniz ed section and content) Reason Onset Date Comments re: PT today 10/04/2024 INFORMATION SOURCE (unrecogn ized section and content) DATE CREATED AUTHOR 07/23/[address] [facility] DATE CREATED AUTHOR AUTHOR'S ORGANIZ ATION 11/13/2024 [facility] EPIC DATE CREATED AUTHOR AUTHOR'S ORGANIZ ATION 12/06/2024 [facility] DATE CREATED AUTHOR AUTHOR'S ORGANIZ ATION 03/31/2025 [facility] Care Teams (unrecognized sec tion and content) Team Status: Active Member Role Status Dates Sridevi Good MD Primary Care Provider Active Team Status: Inactive Member Role Status Dates Sridevi Good MD Primary Care Provide r, Attending Provider Active Start: May 31, 2024 End: May 31, 2024 Team Status: Active Member Role Status Dates Sridevi Good MD Primary Care Provider Active Start: December 11, 2023 ELENA Donohue Attending Provider Active Start : December 11, 2023 Team Status: Active Member Role Status Dates Sridevi Good MD Primary Care Provider Active Start: December 22, 2023 ELENA Donohue Attending Provider Active Start : December 22, 2023 Team Status: Inactive Member Role Status Dates Sridevi Good MD Primary Care Provide r, Attending Provider Active Start: January 15, 2024 End: January 15, 2024 Team Status: Inactive Member Role Status Dates Sridevi Good MD Primary Care Provide r, Attending Provider Active Start: June 10, 2024 End: June 10, 2024 Team Status: Inactive Member Role Status Dates Sridevi Good MD Primary Care Provide r, Attending Provider Active Start: August 17, 2024 End: August 17, 2024 Team Status: Inactive Member Role Status Dates Sridevi Good MD Attending Provider Active St art: August 17, 2024 End: August 17, 2024 Hot Pipe Gauger Relationship Specialty Start Date End Date Aylin Celaya MD [address] [place] [address] PCP - General Internal Medicine 10/14/24 [employer] Pipe Gauger Relationship Specialty Start Date End Date Aylin Celaya MD [address] [place] [address] PCP - General Internal Medicine 10/14/24 Hot Pipe Gauger Relationship Specialty Start Date End Date Aylin Celaya MD [address] [place] [address] PCP - General Internal Medicine 10/14/24 Hot Pipe Gauger Relationship Specialty Start Date End Date Aylin Celaya MD [address] [place] [address] PCP - General Internal Medicine 10/14/24 Hot Pipe Gauger Relationship Specialty Start Date End Date Aylin Celaya MD [address] [place] [address] PCP - General Internal Medicine 10/14/24 Hot Pipe Gauger Relationship Specialty Start Date End Date Aylin Celaya MD [address] [place] [address] PCP - General Internal Medicine 10/14/24 Team Status: Inactive Member Role Status Dates Zach Celaya DO Attending Provider Active St art: September 13, 2024 End: September 13, 2024 Sridevi Good MD Primary Care Provider Active Start: September 13, 2024 End: September 13, 2024 Team Status: Inactive Member Role Status Dates Sridevi Good MD Primary Care Provider Active Start: November 11, 2024 End: November 11, 2024 Mikki Mendez APRN Attending Provider Active Start: November 11, 2024 End: November 11, 2024 Team Status: Active Member Role Status Dates Sridevi Good MD Primary Care Provider Active Start: November 11, 2024 Mikki Mendez APRN Attending Provider Active Start: November 11, 2024 Team Status: Inactive Member Role Status Dates Sridevi Good MD Primary Care Provider Active Start: November 22, 2024 End: November 22, 2024 Kerrie Celaya APRN Attending Provider Active Start: November 22, 2024 End: November 22, 2024 Team Status: Inactive Member Role Status Dates Sridevi Good MD Primary Care Provider Active Start: December 02, 2024 End: December 02, 2024 Zach Celaya DO Attending Provider Active St art: December 02, 2024 End: December 02, 2024 Team Status: Inactive Member Role Status Dates Sridevi Good MD Primary Care Provider Active Start: December 03, 2024 End: December 03, 2024 Lyn Musa APRN Attending Provider Active S tart: December 03, 2024 End: December 03, 2024 Team Status: Active Member Role Status Dates Sridevi Good MD Primary Care Provider Active Start: December 06, 2024 Celine Lowry CMA Attending Provider Active Start: December 06, 2024 Team Status: Inactive Member Role Status Dates Sridevi Good MD Primary Care Provider Active Start: January 10, 2025 End: January 10, 2025 Zach Celaya DO Attending Provider Active St art: January 10, 2025 End: January 10, 2025 Team Status: Inactive Member Role Status Dates Sridevi Good MD Primary Care Provider Active Start: January 13, 2025 End: January 13, 2025 Zach Celaya DO Attending Provider Active St art: January 13, 2025 End: January 13, 2025 Team Status: Inactive Member Role Status Dates Sridevi Good MD Primary Care Provider Active Start: January 26, 2025 End: January 26, 2025 Zach Celaya DO Attending Provider Active St art: January 26, 2025 End: January 26, 2025 Team Status: Inactive Member Role Status Dates Sridevi Good MD Primary Care Provider Active Start: February 09, 2025 End: February 09, 2025 Zach Celaya DO Attending Provider Active St art: February 09, 2025 End: February 09, 2025 Team Status: Active Member Role Status Dates Sridevi Good MD Primary Care Provider Active Start: February 09, 2025 Zach Celaya DO Attending Provider, Other Provider Active Start: February 09, 2025 Team Status: Active Member Role Status Dates Sridevi Good MD Primary Care Provider Active Start: February 11, 2025 Zach Celaya DO Attending Provider Active St art: February 11, 2025 Team Status: Inactive Member Role Status Derrell Good MD Primary Care Provider Active Start: February 22, 2025 End: February 22, 2025 Zach Celaya DO Attending Provider Active St art: February 22, 2025 End: February 22, 2025 Team Status: Active Member Role Status Derrell Good MD Primary Care Provider Active Start: March 11, 2025 Zach Celaya DO Attending Provider Active St art: March 11, 2025 Team Status: Inactive Member Role Status Dates Sridevi Good MD Primary Care Provide r, Attending Provider Active Start: March 15, 2025 End: March 15, 2025 Goals (unrecognized section and content) Goals may [...] BE BASED ON THE PRIMARY CLINICAL RECORDS. [employer]. [facility]. provides no warranty or guarantee of the accuracy or completeness of information in this document.
[2025-04-02 07:57] LABS: Basophils Absolute Auto 0.1 10^3/uL (0.0-0.1); Basophils Percent Auto 2.3 % (0.2-2.0); Eosinophils Absolute Auto 0.1 10^3/uL (0.0-0.7); Eosinophils Percent Auto 3.5 % (0.9-7.0); Immature Granulocytes Abs Auto 0.01 10^3/uL (0.00-0.03); Immature Granulocytes Pct Auto 0.3 % (0.0-0.5); Lymphocytes Absolute Auto 0.9 10^3/uL (1.2-3.8); Lymphocytes Percent Auto 21.4 % (20.5-60.0); Mean Corpuscular HGB Conc 31.3 g/dL (29.9-35.2); Mean Corpuscular Hemoglobin 25.5 pg (26.7-34.0); Mean Corpuscular Volume 81.6 fL (81.0-99.0); Mean Platelet Volume 9.9 fL (9.5-13.5); Monocytes Absolute Auto 0.4 10^3/uL (0.3-0.8); Monocytes Percent Auto 9.8 % (1.7-12.0); Neutrophils Absolute Auto 2.5 10^3/uL (1.4-6.5); Neutrophils Percent Auto 62.7 % (43.0-75.0); Platelet Count 235 10^3/uL (150-450); Red Blood Count 3.92 10^6/uL (4.20-5.40); Red Cell Distribution Width 14.8 % (11.0-15.0)
[2025-04-02 08:07] LABS: Chol HDL Ratio 2.6; Cholesterol 164 mg/dL (<=200); HDL Cholesterol 62 mg/dL (40-60); Triglycerides 86 mg/dL (<=150); VLDL CHOLESTEROL 17.2 mg/dL
== END 2025-04-02 07:34 | disposition home or self-care (01) ==
LOC: LAB 07:34
PROVIDERS: PCP Family Medicine; Visit Provider Family Medicine
DX: Z00.00 Encounter for general adult medical examination without abnormal findings (principal); D64.9 Anemia, unspecified
CPT/HCPCS: 36415; 80061; 85025

== ENCOUNTER 2025-04-22 08:53 | Outpatient (OUT) | payer BC, SELFPAY ==
--- OUTSIDE RECORDS SUMMARY | 2017-04-10 07:00 | XMS_ITS | Continuity of Care Document ---
Author Organization [employer] [facility] Address [address] [facility] [place] [address] Phone Care Team Providers Care Hone Operator Name Role Phone Unavailable Unavailable Unavailable Procedures Procedure Date POSTOP FOLLOW-UP VISIT POSTOP FOLLOW-UP VISIT Sleeve Gastrectomy LAP SLEEVE GASTRECTOMY OFFICE/OUTPATIENT VISIT, [facility] OFFICE/OUTPATIENT VISIT, [facility] Advance Directives Directive Yes / No Effective Date File Name No Information Encounters Encounter Description Practice Location Reason(s) For Visit Diagnoses Date Provider Providers Copied on Encounter [place] [employer] [facility], [address] [place] [address] B, [place], [place], [id number], [place] tel:[phone] [facility] No Information No [facility] [employer] [facility], [address] [place] [address] B, [place], [place], [id number], [place] tel:[phone] [facility] [facility] No Information No Information [place] [employer] [facility], [address] [place] [address] B, [place], [place], [id number], [place] tel:[phone] [facility] IP No Information No [facility] [employer] [facility], [address] [place] [address] B, [place], [place], [id number], [place] tel:[phone] [facility] IP No Information Ezekiel Montoya. [facility] [address] [facility] [address], [place], [place], [id number], [place]. tel:[phone] Referring Provider: Jan Finley, [address] [facility] [address], [place], [address] . tel:[phone] OFFICE/OUTPAT IENT VISIT, [facility] [employer] [facility], [address] [place] [address] B, [place], [place], [id number], tel:[phone] [facility] No Information Ezekiel Montoya. [address] [place] [address], [place], [id number], [place]. tel:[phone] Referring Provider: Jan Finley, [address] [place] [address] 222, [place], [address] . tel:[phone] OFFICE/OUTPAT IENT VISIT, [facility] [employer] [facility], [address] [place] [address] B, [place], [place], [id number], tel:[phone] [facility] No Information Ezekiel Montoya. [address] [place] [address], [id number], [place]. tel:[phone] Referring Provider: Jan Finley, [address] [facility] [address], [place], [address] . tel:[phone] Family History Family Member Type Diagnosis Age At Onset No Information Payers Payer name Insurance type Covered constitution party ID Lilian murphy(ashlyn SORENSON [id number] Social History Type Description Quantity Date Captured Comments Sex Female Smoking Status No Information Chief Complaint And Reason For Visit No Information Reason For Referral Reason For Referral No Information History Of Present Illness Encounter Date Complaint History Of Prese nt Illness No Information Functional Status Date Functional Assessmen t No Information Instructions Date Instruction Additional Infor mation No Information Assessments Type Assessment Date No Information Patient Care Teams Name Effective Dates (start - stop) Status Members No Information
--- OUTSIDE RECORDS SUMMARY | 2025-04-14 10:45 | XMS_ITS | Encounter Summary ---
Author Organization Google tem Address [facility] [id number] [address] [place] [address] Care Team Providers Care Fbi Investigator Name Role Phone Sridevi Schultz MD Primary Care Provider [phone] Encounter Details Date Type Department Care Team (Latest Contact Info) Description 04/14/2025 10:45 AM EDT Office Visit [facility] [address] [facility] [address] [place] [address] Peggy Arteaga, UMER-YESSICA [address] [place] [address] Well woman exam with routine gynecological exam (Primary Dx); Abnormal uterine bleeding (AUB); Perimenopausal; Pap smear for cervical cancer screening; Vaginal discharge; Hot flashes; Chronic nonintractable headache, unspecified headache type Social History Tobacco Use Types Packs/Day Years [...] on file documented as of this encounter Last Filed Vital Signs Vital Sign Reading Time Taken Comments Blood Pressure 126/74 04/14/2025 10:41 AM EDT Pulse - - Temperature - - Respiratory Rate - - Oxygen Saturation - - Inhaled Oxygen Concentration - - Weight 99.3 kg (219 lb) 04/14/2025 10:41 AM EDT Height 167.6 cm (5' 5.98 ) 04/14/2025 10:41 AM E DT Body Mass Index 35.36 04/14/2025 10:41 AM EDT documented in this encounter Progress Notes * Peggy Arteaga, UMER-YESSICA - 04/14/2025 10:45 AM EDT Subjective Jodee Mooney is a 50 y.o. female presenting for well woman exam. Pt states that she has discomfort during intercourse that has recently started. Pt states her periods have changed and are not longer monthly, mood changes, hot flashes, very fatigued and forgetfulness which has progressively changed in 3 yrs. Patient with history of heart palpitations, previous cardiac workup within normal limits. Periods are irregular, LMP about 4 months ago. They are gradually becoming less regular. Complain of decreased libido, vaginal dryness, dyspareunia, mood changes and hot flashes. Also notes an increase in headaches. Patient reports headaches are frontal, over the last several weeks have been daily,she awakes with them. Current contraception: none History of abnormal Pap smear: no; last pap about 20yrs ago Family history of breast, uterine ,ovarian, colon, pancreatic or prostate cancer: yes - Breast Ca- mother Regular self breast exam: yes History of abnormal mammogram: no; scheduled for next week. Last year was done Neg Hx Colonoscopy/Cologuard test: last [facility] at [facility] Neg HX Gardasil Patient reports that they are safe at home and have no mental health concerns at today's visit. Menstrual History: OB History No obstetric history on file. Patient's last menstrual period was 12/05/2024 (exact date). The following portions of the patient's history were reviewed and updated as appropriate: allergies, current medications, past family history, past medical history, past social history, past surgicalhistory, problem list, and medication reconciliation was completed including current medication andpost discharge medication. Review of Systems Review of Systems Review of Systems - General ROS: BMI 35 Psychological ROS: negative for - anxiety or suicidal ideation Ophthalmic ROS: negative for - blurry vision, eye pain, photophobia or scotomata ENT ROS: negative for - visual changes Allergy and Immunology ROS: positive for allergy to Augmentin Hematological and Lymphatic ROS: negative Endocrine ROS: negative Breast ROS: negative for breast lumps Respiratory ROS: no cough, shortness of breath, or wheezing Cardiovascular ROS: no chest pain or dyspnea on exertion Gastrointestinal ROS: no abdominal pain, change in bowel habits, or black or bloody stools Genito-Urinary ROS: no dysuria, trouble voiding, or hematuria Musculoskeletal ROS: negative for - muscular weakness Neurological ROS: negative Objective BP 126/74 Ht 167.6 cm (5' 5.98 ) Wt 99.3 kg (219 lb) LMP 12/05/2024 (Exact Date) BMI 35.36 kg/m?? General: alert, appears stated age, cooperative, no distress, and mildly obese social drinkerFormerSmokerPatient does not use prescription narcotics or illegal drugs. Thyroidnormal to inspection andpalpation Heart: regular rate and rhythm, S1, S2 normal, no murmur, click, rub or gallop Breast Bilateral breasts without nodularity, bilateral nipples everted, bilateral axilla without nodularity. Breast there were some mild fibrocystic changes in the outer portion Lungs: clear to auscultation bilaterally Abdomen: soft, non-tender, without masses or organomegaly and Negative CVAT Vulva: normal, Bartholin's, Urethra, [place]'s normal Vagina: normal mucosa, normal discharge, grade 1 cystocele noted with Valsalva Cervix: multiparous appearance, no cervical motion tenderness, retroverted, and light bleeding after Pap Uterus: anteverted, mobile, non-tender Adnexa: normal adnexa and no mass, fullness, tenderness Assessed for smoking and patient is nonsmoker, not appropriate for cessation. Assessment Problem List Items Addressed This Visit Perimenopausal Relevant Orders Ultrasound pelvic with transvaginal Abnormal uterine bleeding (AUB) Relevant Orders Ultrasound pelvic with transvaginal Other Visit Diagnoses Well woman exam with routine gynecological exam - Primary Pap smear for cervical cancer screening Relevant Orders Vaginitis Panel PCR Vaginal discharge Relevant Orders Thin Prep Pap Test Plan New Medications Ordered This Visit Medications fluticasone (FLONASE SENSIMIST) 27.5 mcg/actuation nasal spray Sig: Administer 1 spray into each nostril in the morning. Dispense: 10 g Refill: 2 estradioL-levonorgestreL (CLIMARAPRO) 0.045-0.015 mg/24 hr Sig: Place 1 patch on the skin once a week. Dispense: 4 patch Refill: 2 Patient educated on risks and benefits of estrogen and progesterone. She is aware of increased riskfor blood clot, heart attack, stroke, liver and kidney disease. She is also aware of the risk of breast cancer with prolonged use of progesterone. Patient encouraged to get pelvic ultrasound for AUB. We will plan further care based on ultrasound results. Dietary diary. Discussed healthy lifestyle modifications. Educational material distributed. BMI is above average; BMI management plan is completed exercise and decreased calorie intake discussed. Follow-up Return in about 1 year (around 04/14/2026) for Annual physical. Education ASSP Guidelines for PAP and HPV testing. Risks of clot, NM, stroke, cancer, liver disease with control use; info sheet given. Annual yearly recommended with pap and HPV per ASCCP guidelines. Recommendations reviewed for BMI management, goal 19-24 encouraged. Calcium intake 9962-0133 mg po with 800 units vitamin D daily by age and weight bearing exercise for bone health reviewed. Condom use, STD testing discussed Breast care and assessment discussed, mammogram yearly starting at age 40 unless risk factors indicate earlier testing. Colorectal screening at age 45 for low risk patients. - YENIFER COLLIER 04/14/25 12:12 PM - Pilo Huggins Luís 04/14/25 12:02 PM YENIFER Collier 04/14/25 1215 * YENIFER Collier - 04/14/2025 10:45 AM EDT Reviewed. Testing indicates no vaginal infection with BV, yeast or Trichomonas. YENIFER Collier 04/15/25 210 * YENIFER Collier - 04/14/2025 10:45 AM EDT Reviewed. Pap and HPV are negative, plan annual in 1 year with repeat Pap per ASCCP guidelines. YENIFER Collier 04/18/25 1626 documented in this encounter Plan of Treatment Upcoming Encounters Date Type Department Care Team ([facility] st Contact Info) Description 04/25/2025 9:30 AM EDT Appointment [facility] - Ultrasound [address] [place] [address] Peggy Arteaga APRN-CNM [address] [place] [address] 07/18/2025 9:45 AM EDT Office Visit [facility] [address] [place] [address] Peggy Arteaga APRN-CNM [address] [facility] [place] [address] Scheduled Orders Name Type Priority Associated Diagnoses Orde r Schedule Ultrasound pelvic with transvaginal Imaging Routine Abnormal uterine bleeding (AUB) Perimenopausal Expected: 04/14/2025, Expires: 04/14/2026 documented as of this encounter Procedures Procedure Name Priority Date/Time Associated Diagnosis Comments THIN PREP PAP TEST Routine 04/14/2025 11 :41 AM EDT Vaginal discharge HIGH RISK HPV W/DAY Routine 04/14/2025 11:41 AM EDT Vaginal discharge VAGINITIS PANEL PCR Routine 04/14/2025 1 1:41 AM EDT Pap smear for cervical cancer screening documented in this encounter Results * High risk HPV w/day (04/14/2025 11:41 AM EDT) HPV 16 Negative Negative 04/18/2025 10:53 AM EDT [facility] HPV 18 Negative Negative 04/18/2025 10:53 AM EDT [facility] OTHER HIGH RISK HPV Negative Negative 04/18/2025 10:53 AM EDT [facility] Comment:HPV types 31, 33, 35 , 39, 45, 52, 56, 58, 59, 66, and 68 DNA were undetectable. ThinPrep cytology technique (qualifier value) Cervix uteri structure / Unknown 04/14/2025 11:41 AM EDT 04/18/2025 4:53 AM EDT Peggy Arteaga MULT AU MATIC OPERATOR-CNM LAB BLOOD ORDERABLES F inal Result [facility] [address] [place] [address], * Vaginitis Panel PCR (04/14/2025 11:41 AM EDT) Pathologist [facility] BACT. VAGINOSIS DNA Not Detected Not Detected 04/14/2025 9:34 PM EDT [facility] Comment:Qualitative results are reported based on detection and quantitation of targeted organism markers which include: Lactobacillus spp. (L. crispatus and L. jensenii), Gardnerella vaginalis, Atopobium vaginae, Bacterial Vaginosis Associated Bacteria-2 (BVAB-2) and Megasphaera-1. LILLIAN SPECIES DNA Not Detected Not Detected 04/14/2025 9:34 PM EDT [facility] Comment:Lillian species not detected include: C. albicans, C. tropicalis, C. parapsilosis or C. dubliniensis. LILLIAN KRUSEI DNA Not Detected Not Detected 04/14/2025 9:34 PM EDT [facility] Comment:No Lillian krusei de tected. LILLIAN GLABRATA DNA Not Detected Not Detected 04/14/2025 9:34 PM EDT [facility] Comment:No Lillian glabrata detected. TRICHOMONAS VAG DNA Not Detected Not Detected 04/14/2025 9:34 PM EDT [facility] Comment: No Trichomonas vaginalis detected. BD MAX Vaginal Panel has not been evaluated for patients under 18 years old. Results for these patients should be reviewed and assessed in accordance with clinical presentation to determine patient diagnosis. Swab Vaginal structure / Unknown 04/14/2025 11:41 AM EDT 04/14/2025 11:[address] MICROBIOLOGY - GENERAL ORDERABLES Final Result [facility] [address] [place] [address], [place] [phone] * Thin Prep Pap Test (04/14/2025 11:41 AM EDT) Case Report Gynecologic Cytology Report Case: [id number] Authorizing Provider: YENIFER Collier Collected: 04/14/2025 1141 Ordering Location: [facility] Received: 04/14/2025 1141 Services First Screen: YURY Gonsalez(ASCP) Specimen: Thin Prep Pap, Cervix 12:05 PM EDT [facility] Specimen Adequacy Satisfactory for evaluation, endocervical/t ransformation zone component present 12:05 PM EDT [facility] Interpretation NEGATIVE FOR INTRAEPITHELIA L LESION OR MALIGNANCY NEGATIVE FOR INTRAEPITHELIA L LESION OR MALIGNANCY, UNSATISFACTORY , EPITHELIAL CELL ABNORMALITY, GLANDULAR EPITHELIAL CELL ABNORMALITY. , SQUAMOUS EPITHELIAL CELL ABNORMALITY, NO DIAGNOSIS RENDERED. 12:05 PM EDT [facility] at 1205 EDT Additional Information The Pap test is a screening test with an inherent, but low, probability of error. The Pap test is primarily effective for the diagnosis and prevention of squamous cell carcinoma. Regular screening is critical for prevention. ThinPrep liquid-based slides, which meet the Medical Oncologist criteria for automated screening, have been screened by the [employer] [facility] (as of 06/29/07) along with an additional manual rescreening by a cytotechnologi st and, if indicated, by a pathologist. 12:05 PM EDT [facility] Clinical Information screening for pap smear 12:05 PM EDT [facility] Embedded Images 12:05 PM EDT [facility] ThinPrep cytology technique (qualifier value) Cervix uteri structure / Unknown 04/14/2025 11:41 AM EDT 04/14/2025 11:41 AM EDT us Peggy Arteaga MULT AU MATIC OPERATOR-CNM PATHOLOGY/CYTOLOGY ORD ERABLES Final Result [facility] [address] [place] [address], [place] [phone] documented in this encounter Visit Diagnoses Diagnosis Well woman exam with routine gynecological exam- Primary Routine gynecological examination Abnormal uterine bleeding (AUB) Perimenopausal Symptomatic menopausal or female climacteric states Pap smear for cervical cancer screening Screening for malignant neoplasm of the cervix Vaginal discharge Leukorrhea, not specified as infective Hot flashes Chronic nonintractable headache, unspecified headache type documented in this encounter Additional Health Concerns Assessment Noted Time A Body Mass Index follow-up plan has been documented for the patient 04/14/2025 12:15 PM EDT documented as of this encounter Care Teams Fbi Investigator Relationship Specialty Start Date End Date Sridevi Schultz MD [address] [place] [address] PCP - General Family Medicine 02/18/21 documented as of this encounter
--- OUTSIDE RECORDS SUMMARY | 2025-04-22 08:54 | XMS_ITS | Clinical Summary ---
Author Organization [facility] Address [address] [place] [address] Care Team Providers Care Bobbin Cleaning Machine Operator Name Role Phone Unavailable Primary Care Provider [...]
--- OUTSIDE RECORDS SUMMARY | 2025-04-22 08:54 | XMS_ITS | Encounter Summary ---
Author Organization [employer] tem Address [id number] [address] [place] [address] Care Team Providers Care Septic Tank Cleaner Name Role Phone Sridevi Schultz MD Primary Care Provider [phone] Encounter Details Date Type Department Care Team (Latest Contact Info) Description 04/14/2025 Travel Social History Tobacco Use Types Packs/Day [...] Care Team (Late st Contact Info) Description 04/25/2025 9:30 AM EDT Appointment [facility] - Ultrasound [address] [place] [address] Peggy Arteaga, BIOMETRICS INSTRUCTOR-CNM [address] [facility], [address] [address] 07/18/2025 9:45 AM EDT Office Visit [facility] [address] [place] [address] Peggy Arteaga APRN-CNAleks [address] [facility] [address] [place] [address] documented as of this encounter Visit Diagnoses Not on filedocumented in this encounter Additional Health Concerns Assessment Noted Time A Body Mass Index follow-up plan has been documented for the patient 04/14/2025 12:15 PM EDT documented as of this encounter Care Teams Septic Tank Cleaner Relationship Specialty Start Date End Date Sridevi Schultz MD [facility] [place] [address] PCP - General Family Medicine 02/18/21 documented as of this encounter
--- OUTSIDE RECORDS SUMMARY | 2025-04-22 08:54 | XMS_ITS | Clinical Summary ---
Author Organization [facility] Address [address] [place] [address] Care Team Providers Care Business Continuity Analyst Name Role Phone Aylin Celaya MD Primary Care Provider [phone] Social History Tobacco Use Types Packs/Day Years Used Date Smoking Tobacco: Never Assessed Comments Unknown Sex and Gender Information Value Date Recorded Sex Assigned at Not on file Legal Sex Female 7:16 PM EDT Gender Identity Not on file Sexual Orientation Not on file Last Filed Vital Signs Vital Sign Reading Time Taken Comments Blood Pressure 142/87 09/29/2018 12:00 PM EST Pulse - - Temperature - - Respiratory Rate - - Oxygen Saturation - - Inhaled Oxygen Concentration - - Weight 113 kg (250 lb) 02/05/2022 12:00 PM EDT Height 167.6 cm (5' 6 ) 02/05/2022 12:00 PM EDT Body Mass Index 40.35 02/05/2022 12:00 PM EDT Plan of Treatment Health Maintenance Due Date Last Done Comments CT Colonography 1977 Colonoscopy 1977 Colorectal Cancer Screening 1977 FIT-DNA 1977 FIT 1977 FOBT 1977 Sigmoidoscopy 1977 Pap Smear 1998 Cervical Cancer Screening 2007 HPV/Cotest 2007 Mammogram 2017 Influenza Vaccine (#1) 2025 Insurance BCBS Care Teams Business Continuity Analyst Relationship Specialty Start Date End Date Aylin Celaya MD PCP - General Internal Medicine 10/14/24
--- OUTSIDE RECORDS SUMMARY | 2025-04-22 08:54 | XMS_ITS | Clinical Summary ---
Author Organization Cards Off tem Address [facility] [place]-[id number] [address] [place] [address] Care Team Providers Care Travel Service Consultant Name Role Phone Sridevi Schultz MD Primary Care Provider [phone] Allergies Active Allergy Reactions Criticality Noted Date Comments Amoxicillin-Pot Clavulanate Hives 02/19/20 21 Medications traZODone (DESYREL) 150 mg tablet Take 150 mg by mouth nightly. Active gabapentin (NEURONTIN) 300 mg capsule Take 1 capsule (300 mg total) by mouth in the morning and 1 capsule (300 mg total) before bedtime. Active buPROPion SR (WELLBUTRIN SR) 100 mg [...] total) by mouth in the morning. Active fluticasone (FLONASE SENSIMIST) 27.5 mcg/actuation nasal sprayIndications: Chronic nonintractable headache, unspecified headache type Administer 1 spray into each nostril in the morning. 10 g 2 04/14/20 25 Active estradioL-levonor gestreL (CLIMARAPRO) 0.045-0.015 mg/[address] 1 patch on the skin once a week. 4 patch 2 04/14/20 25 Active estradioL (ESTRACE) 0.01 % (0.1 mg/gram) vaginal creamIndications: Low libido,Perimenopa usal Insert 2 g into the vagina before bedtime for 30 days. Apply daily for 4 weeks then taper to 2-3 times per week to relieve symptoms. 42.5 g 3 04/18/20 25 2024 Active fezolinetant 45 mg tabletIndications :Hot flashes,Perimenop ausal Take 45 mg by mouth in the morning. 30 tablet 4 04/18/20 Active benzonatate (TESSALON PERLES) 100 mg capsule Take 1 capsule (100 mg total) by mouth every 8 (eight) hours. 21 capsule 12/03/19 25 2024 Discontinued Active Problems Problem Noted Date Diagnosed Date Abnormal uterine bleeding (AUB) 04/14/2025 Perimenopausal 04/14/2025 Chronic nonintractable headache 04/14/2025 Hot flashes 04/14/2025 Encounters Date Type Department Care Team Description 04/18/2025 [facility] [address] [phone] Peggy Arteaga APRN-CNM Hot flashes; Perimenopausal 04/18/2025 Telephone [facility] [address] [phone] Peggy Arteaga APRN-CNM 04/18/2025 Orders Only [facility] [address] [facility] [address] [place] [phone] Peggy Arteaga APRN-CNM Low libido (Primary Dx); Hot flashes; Perimenopausal 04/14/2025 10:45 AM EDT [facility] Visit [facility] [address] [facility] [address] [place] [phone] Peggy Arteaga APRN-CNM Well woman exam with routine gynecological exam (Primary Dx); Abnormal uterine bleeding (AUB); Perimenopausal; Pap smear for cervical cancer screening; Vaginal discharge; Hot flashes; Chronic nonintractable headache, unspecified headache type 04/14/2025 Travel 03/24/2025 Travel from Last 3 Months Family History Medical History Relation Name Comments Breast cancer Mother Relation Name Status Comments Mother Social History Tobacco Use Types Packs/Day Years [...] Pressure 126/74 04/14/2025 10:41 AM EDT Pulse 71 12/03/2024 8:15 PM EST Temperature 36.8 C (98.3 F) 12/03/2024 5:23 PM EST Respiratory Rate 18 12/03/2024 8:15 PM EST Oxygen Saturation 99% 12/03/2024 8:15 PM EST Inhaled Oxygen Concentration - - Weight 99.3 kg (219 lb) 04/14/2025 10:41 AM EDT Height 167.6 cm (5' 5.98 ) 04/14/2025 10:41 AM E DT Body Mass Index 35.36 04/14/2025 10:41 AM EDT Plan of Treatment Upcoming Encounters Date Type Department Care Team (Late st Contact Info) Description 04/25/2025 9:30 AM EDT Appointment [facility] - Ultrasound [address] [place] [phone] Peggy Arteaga APRN-CNM [address] [place] [address] 07/18/2025 9:45 AM EDT Office Visit [facility] [address] [place] [address] Peggy Arteaga APRN-CNM [address] [address] Health Maintenance Due Date Last Done Comments Depression Screening 1989 COVID-19 Vaccine ( season) 2024, 08/11/2021 Influenza Vaccine 06/13/2025 Adult BMI Follow Up Plan 04/14/2026 04/14/2025 Adult BMI Screening 04/14/2026 04/14/2025 Tobacco Screening 04/14/2026 04/14/2025 Pap Smear 04/14/2028 04/14/2025, 04/14/2025 DTaP,Tdap and Td Vaccines (2 - Td or Tdap) 05/31/2029 05/31/2019 Medical Devices Not on file Procedures Procedure Name Priority Date/Time Associated Diagnosis Comments THIN PREP PAP TEST Routine 04/14/2025 11 :41 AM EDT Vaginal discharge HIGH RISK HPV W/RAOUL Routine 04/14/2025 11:41 AM EDT Vaginal discharge VAGINITIS PANEL PCR Routine 04/14/2025 1 1:41 AM EDT Pap smear for cervical cancer screening from Last 3 Months Results * Thin Prep Pap Test (04/14/2025 11:41 AM EDT) Case Report Gynecologic Cytology Report Case: [id number] Authorizing Provider: YENIFER Galvan Collected: 04/14/2025 1141 Ordering Location: [facility] Received: 04/14/2025 1141 Services First Screen: YURY Gonsalez(ASCP) Specimen: Thin Prep Pap, Cervix 12:05 PM EDT [facility] Specimen Adequacy Satisfactory for evaluation, endocervical/t ransformation zone component present 12:05 PM EDT [facility] Interpretation NEGATIVE FOR INTRAEPITHELIA L LESION OR MALIGNANCY NEGATIVE FOR INTRAEPITHELIA L LESION OR MALIGNANCY, UNSATISFACTORY , EPITHELIAL CELL ABNORMALITY, GLANDULAR EPITHELIAL CELL ABNORMALITY. , SQUAMOUS EPITHELIAL CELL ABNORMALITY, NO DIAGNOSIS RENDERED. 5 12:05 PM EDT [facility] at 1205 EDT Additional Information The Pap test is a screening test with an inherent, but low, probability of error. The Pap test is primarily effective for the diagnosis and prevention of squamous cell carcinoma. Regular screening is critical for prevention. ThinPrep liquid-based slides, which meet the [employer] Administrator criteria for automated screening, have been screened by the [employer] (as of 06/29/07) along with an additional manual rescreening by a cytotechnologi st and, if indicated, by a pathologist. 5 12:05 PM EDT [facility] Clinical Information screening for pap smear 5 12:05 PM EDT [facility] Embedded Images 5 12:05 PM EDT [facility] ThinPrep cytology technique (qualifier value) Cervix uteri structure / Unknown 04/14/2025 11:41 AM EDT 04/14/2025 11:41 AM EDT Peggy Arteaga APRN-CN PATHOLOGY/CYTOLOGY ORD ERABLES Final Result [facility] [address] [place] [address], * High risk HPV w/raoul (04/14/2025 11:41 AM EDT) HPV 16 Negative Negative 04/18/2025 10:53 AM EDT [facility] HPV 18 Negative Negative 04/18/2025 10:53 AM EDT [facility] OTHER HIGH RISK HPV Negative Negative 04/18/2025 10:53 AM EDT [facility] Comment:HPV types 31, 33, 35 , 39, 45, 52, 56, 58, 59, 66, and 68 DNA were undetectable. ThinPrep cytology technique (qualifier value) Cervix uteri structure / Unknown 04/14/2025 11:41 AM EDT 04/18/2025 4:[address] LAB BLOOD ORDERABLES F inal Result [facility] [address] [place] [address], * Vaginitis Panel PCR (04/14/2025 11:41 AM EDT) BACT. VAGINOSIS DNA Not Detected Not Detected 04/14/2025 9:34 PM EDT [facility] Comment:Qualitative results are reported based on detection and quantitation of targeted organism markers which include: Lactobacillus spp. (L. crispatus and L. jensenii), Gardnerella vaginalis, Atopobium vaginae, Bacterial Vaginosis Associated Bacteria-2 (BVAB-2) and Megasphaera-1. LILLIAN SPECIES DNA Not Detected Not Detected 04/14/2025 9:34 PM EDT [facility] Comment:Lillian species not detected include: C. albicans, C. tropicalis, C. parapsilosis or C. dubliniensis. LILLIAN KRUSEI DNA Not Detected Not Detected 04/14/2025 9:34 PM EDT [facility] Comment:No Lillian krusei de tected. LILLIAN GLABRATA DNA Not Detected Not Detected 04/14/2025 9:34 PM EDT [facility] Comment:No Lillian glabrata detected. TRICHOMONAS VAG DNA Not Detected Not Detected 04/14/2025 9:34 PM EDT [facility] Comment: No Trichomonas vaginalis detected. BD MAX Vaginal Panel has not been evaluated for patients under 18 years old. Results for these patients should be reviewed and assessed in accordance with clinical presentation to determine patient diagnosis. Swab Vaginal structure / Unknown 04/14/2025 11:41 AM EDT 04/14/2025 11:41 AM EDT Peggy A Chandler ROLL MACHINE OPERATOR-CNM MICROBIOLOGY - GENERAL ORDERABLES Final Result [facility] [address] [place] [address], from Last 3 Months Insurance [address] [place] [address] ANTHEM Care Teams Travel Service Consultant Relationship Specialty Start Date End Date Sridevi Schultz MD [facility] [place] [id number] PCP - General Family Medicine 02/18/21
--- OUTSIDE RECORDS SUMMARY | 2025-04-22 08:54 | XMS_ITS | Encounter Summary ---
Author Organization [employer] tem Address [facility]-[id number] [address] [place] [address] Care Team Providers Care Data Visualization Developer Name Role Phone Sridevi Schultz MD Primary Care Provider [phone] Encounter Details Date Type Department Care Team ([facility] st Contact Info) Description 04/18/2025 Telephone [facility] [address] [place] [address] Peggy Arteaga APRN-CNAleks [address] [place] [address] Social History Tobacco Use Types Packs/Day Years [...] on file documented as of this encounter Patient Instructions * Attachments The following attachments cannot be sent through Care Everywhere. * Estradiol (Topical), ADULT (Fijian) * Fezolinetant, ADULT (Fijian) documented in this encounter Miscellaneous Notes * Telephone Encounter - YENIFER Collier - 04/18/2025 3:21 PM EDT Mychart education sent on Estrace cream and oral Veozah. - YENIFER COLLIER 04/18/25 3:22 PM documented in this encounter Plan of Treatment Upcoming Encounters Date Type Department Care Team (Late st Contact Info) Description 04/25/2025 9:30 AM EDT Appointment [facility] - Ultrasound [address] [place] [phone] Peggy Arteaga APRN-CNM [address] [facility] [address] [place] [address] 07/18/2025 9:45 AM EDT Office Visit [facility] Services [address] [place] [address] Peggy Arteaga APRN-CNM [address] , [facility] [address] [place] [address] documented as of this encounter Visit Diagnoses Not on filedocumented in this encounter Additional Health Concerns Assessment Noted Time A Body Mass Index follow-up plan has been documented for the patient 04/14/2025 12:15 PM EDT documented as of this encounter Care Teams Data Visualization Developer Relationship Specialty Start Date End Date Sridevi Schultz MD [address] [place] [phone] PCP - General Family Medicine 02/18/21 documented as of this encounter
--- OUTSIDE RECORDS SUMMARY | 2025-04-22 08:54 | XMS_ITS | Encounter Summary ---
Author Organization [employer] tem Address [facility]-[id number] [address] [place] [address] Care Team Providers Care Auto Air Conditioning Apprentice Name Role Phone Sridevi Schultz MD Primary Care Provider [phone] Encounter Details Date Type Department Care Team ([facility] st Contact Info) Description 04/18/2025 Orders Only [facility] [address] [place] [phone] Peggy Arteaga APRN-CNM [address] [place] [address] Low libido (Primary Dx); Hot flashes; Perimenopausal Social History Tobacco Use Types Packs/Day Years [...] on file documented as of this encounter Progress Notes * YENIFER Collier - 04/18/2025 3:14 PM EDT Patient requesting change of medication due to insurance not covering. New Medications Ordered This Visit Medications estradioL (ESTRACE) 0.01 % (0.1 mg/gram) vaginal cream Sig: Insert 2 g into the vagina before bedtime for 30 days. Apply daily for 4 weeks then taper to 2-3 times per week to relieve symptoms. Dispense: 42.5 g Refill: 3 fezolinetant 45 mg tablet Sig: Take 45 mg by mouth in the morning. Dispense: 30 tablet Refill: 4 - YENIFER COLLIER 04/18/25 3:20 PM YENIFER Collier 04/18/25 1521 documented in this encounter Plan of Treatment Upcoming Encounters Date Type Department Care Team ([facility] Contact Info) Description 04/25/2025 9:30 AM EDT Appointment [facility] - Ultrasound [address] [place] [phone] Peggy Arteaga APRN-CNM [address] [facility] [address] [place] [address] 07/18/2025 9:45 AM EDT Office Visit [facility] Women's Services [address] [place] [phone] Peggy Arteaga APRN-CNM [address] [place] [address] documented as of this encounter Visit Diagnoses Diagnosis Low libido- Primary Hot flashes Perimenopausal Symptomatic menopausal or female climacteric states documented in this encounter Additional Health Concerns Assessment Noted Time A Body Mass Index follow-up plan has been documented for the patient 04/14/2025 12:15 PM EDT documented as of this encounter Care Teams Auto Air Conditioning Apprentice Relationship Specialty Start Date End Date Sridevi Schultz MD [address] [place] [id number] PCP - General Family Medicine 02/18/21 documented as of this encounter
--- OUTSIDE RECORDS SUMMARY | 2025-04-22 08:54 | XMS_ITS | Encounter Summary ---
Author Organization [facility] [employer] [facility] tem Address [facility]-[id number] [address] [place] [address] Care Team Providers Care Telecommunication Operator Name Role Phone Sridevi Schultz MD Primary Care Provider [phone] Reason for Visit * Reason Comments Med Change Request Encounter Details Date Type Department Care Team ([facility] Contact Info) Description 04/18/2025 Refill [facility] [address] [facility] [address] [place] [address] Peggy Arteaga, DINING ROOM HOST-CN [address] [place] [address] Hot flashes; Perimenopausal Social History Tobacco Use [...] Upcoming Encounters Date Type Department Care Team ([facility] Contact Info) Description 04/25/2025 9:30 AM EDT Appointment [facility] - Ultrasound [address] [place] [address] Peggy Arteaga APRN-YESSICA [address] , [facility] [address] [place] [address] 07/18/2025 9:45 AM EDT Office Visit [facility] [address] [place] [phone] Peggy Arteaga APRN-YESSICA [address] , [facility] [address] [place] [address] documented as of this encounter Visit Diagnoses Diagnosis Hot flashes Perimenopausal Symptomatic menopausal or female climacteric states documented in this encounter Additional Health Concerns Assessment Noted Time A Body Mass Index follow-up plan has been documented for the patient 04/14/2025 12:15 PM EDT documented as of this encounter Care Teams Telecommunication Operator Relationship Specialty Start Date End Date Sridevi Schultz MD [address] [place] [id number] PCP - General Family Medicine 02/18/21 documented as of this encounter
--- OUTSIDE RECORDS SUMMARY | 2025-04-22 08:58 | XMS_ITS | CCD ---
Author Organization [facility] CliniSynm Care Team Providers Care Watch Guard Gate Name Role Phone Puma Sunday Unavailable DR CONNER GOOD Primary Care Unavailable PAY, DR BURCH Admitting Unavailable PAY, DR BRUCH Attending Unavailable PAY, DR BURCH Consulting Unavailable FABRIZIO DYKES Consulting Unavailable MARILU CALZADA Consulting Unavailable GOOD, DR CONNER Robles Admitting Unavailable GOOD, DR CONNER Robles Attending Unavailable GOOD, DR CONNER Robles Primary Care Unavailable [facility], DR ISRA Licona Consulting Unavailable FLORENTINO, DR CONNER Robles Consulting Unavailable Conner Good Unavailable MD Conner Good Attending Provider Unavailable Primary Care Provider UnavailAylin Benjamin MD Primary Care Provider Conner Good MD Attending Provider [phone] Conner Good MD Primary Care Provider [phone] Mikki Mendez APRN Attending Provider [phone] BAKARI ROLDAN Attending Unavailable GISELLE, ZACH Referring Unavailable KELBLEY, IVETH Attending Unavailable GISELLE, ZACH Referring Unavailable EDITHTONANNAY T Attending Unavailable GISELLE, ZACH Referring Unavailable KELBLEY, IVETH Attending Unavailable GISELLE, ZACH Referring Unavailable BLACKSTON, BEBE T Attending Unavailable GISELLE, ZACH Referring Unavailable KELBLEY, IVETH Attending Unavailable GISELLE, ZACH Referring Unavailable KELBLEY, IVETH Attending Unavailable GISELLE, ZACH Referring Unavailable KELBLEY, IVETH Attending Unavailable GISELLE, ZACH Referring Unavailable KELBLEY, IVETH Attending Unavailable GISELLE, ZACH Referring Unavailable KELBLEY, IVETH Attending Unavailable GISELLE, ZACH Referring Unavailable CONNER GOOD Primary Care Unavailable HUSSAIN BENJAMIN Attending UnavailConner Valladares MD Primary Care Provider [phone] Mikki Mendez APRN Attending Provider Zach Celaya DO Attending Provider Conner Good MD Primary Care Provider Zach Celaya DO Other Provider Conner Good MD Attending Provider Ly DODeniae Corbin Attending Provider Ly DO Celine L Other Provider [phone] Giselle, Zach A Admitting Unavailable Giselle, Zach Staley Attending Unavailable Florentino, Conner E Primary Care Unavailable Giselle, Zach Luís Attending Unavailable Giselle, Zach A Admitting Unavailable Good, Conner E Primary Care Unavailable Giselle, Zach A Admitting Unavailable Giselle, Zach Staley Attending Unavailable Good, Conner Robles Primary Care Unavailable Ly, Celine L Admitting Unavailable Ly, Celine L Attending Unavailable Good, Conner E Primary Care Unavailable GoodConner Attending Unavailable Good, Conner E Admitting Unavailable Good, Conner Robles Primary Care Unavailable Mikki Mendez Admitting UnavailMikki Salinas Attending Unavailabl e Good, Conner E Primary Care Unavailable Giselle, Zach A Admitting Unavailable Giselle, Zach Luís Attending Unavailable Conner Good MD Primary Care Provider [phone] PEGGY ARTEAGA Attending Unavailable FLORENTINO CONNER E Referring Unavailable GOOD, CONNER E Primary Care Unavailable Allergies Allergy Classification Reported Allergen(s) Allergy Type Date of Onset Reaction(s) Facility (20 sources) Amoxicillin Drug Allergy 01-15-20 24 Unknown, Unknown Reaction, Palpitations [facility] (20 sources) Amoxicillin / Clavulanate; Translations: [Augmentin] Drug Allergy Unknown [facility] Repository (1 source) Amoxicillin Drug Allergy 02-01-[address] [facility] Repository (14 sources) Pseudoephedrine Drug Allergy Unknown [facility] Other (1 source) Allergies Reconciled Propensity to adverse reactions Unknown [facility] Other (1 source) patient allergy list reviewed by nurse or physicia Propensity to adverse reactions 03-17-20 19 Comment:Done [facility] Other (18 sources) Clavulanate; Translations: [clavulanic acid] Drug Allergy 01-15-20 24 Unknown Reaction, Palpitations [facility] (12 sources) 12 Hour Decongestant Allergy to substance 01-14-20 24 [facility] (5 sources) AMOXICILLIN-POT CLAVULANATE; Translations: [AMOXICILLIN-POT CLAVULANATE] Propensity to adverse reactions to drug (disorder) 02-19-20 21 [facility] Repository (1 source) Amoxicillin Drug Allergy 03-23-20 25 [facility] Repository Medications Current Medications Medication Drug Class(es) Dates Sig (Normalized) Sig (Original) brexpiprazole 0.25 mg oral tablet (20 sources) Atypical Antipsychotic Start: 03-29-2025 take 1 tablet by mouth once daily Start: 01-26-2025 End: 03-29-2025 take 1 tablet by mouth once daily in the evening Brexpiprazole (Rexulti) 0.25 mg tablet Discontinued 0.25 MG PO Every evening March 28, 2025 2:13pm March 29, 2025 9:31am TAKE 1 TABLET BY MOUTH DAILY Start: [...] 3:05pm take 1 tablet by michelle th in the morning brexpiprazole (REXULTI) 1 mg tablet Take 1 tablet (1 mg total) by mouth in the morning. Active take 1 tablet by michelle th [...] TAKE 1 TABLET BY MOUTH EVERY DAY Complies with drug therapy Start: 04-19-2024 End: 01-26-2025 take 1 tablet by mouth once daily Bupropion Hcl 300 mg tablet extended release 24 hr Discontinued 0 .ROUTE .COMPLEX 90 October 21, 2024 9:21am January 26, 2025 [...] 12:05pm take 1 tablet by michelle th every twelve hours in the morning, then take 1 tablet by mouth at bedtime buPROPion SR (WELLBUTRIN SR) 100 mg 12 hr tablet Take 1 tablet (100 mg total) by mouth in the morning and 1 tablet (100 mg total) before bedtime. Active take 1 tablet by michelle th once daily buPROPion HCl ER (XL) 300 MG TAKE 1 TABLET BY MOUTH EVERY DAY for 90 days Active take 1 tablet by michelle th every twenty-four hours buPROPion HCl ER (SR) 200 MG 1 tablet in the morning Orally Once a day for 30 days Not-Taking estradiol 0.1 mg/ml vaginal cream (2 sources) Estrogen Start: 04-18-2025 End: 05-18-2025 estradioL (ESTRACE) 0.01 % (0.1 mg/gram) vaginal cream Indications: Low libido , Perimenopausal Insert 2 g into the vagina before bedtime for 30 days. Apply daily for 4 weeks then taper to 2-3 times per week to relieve symptoms. 42.5 g 3 04/18/2025 05/18/2025 Active 168 hr estradiol 0.91201 mg/hr / levonorgestrel 0.580235 mg/hr transdermal system (3 sources) Progestin, Estrogen, Progestin-containin g Intrauterine Device Start: 04-14-2025 estradioL-levonorge streL (CLIMARAPRO) 0.045-0.015 mg/24 hr Indications: Hot flashes Place 1 patch on the skin once a week. 4 patch 2 04/14/2025 Active fezolinetant 45 mg tablet (2 sources) Start: 04-18-2025 take 1 tablet by mouth in the morning fezolinetant 45 mg tablet Indications: Hot flashes , Perimenopausal Take 45 mg by mouth in the morning. 30 tablet 4 04/18/2025 Active fluticasone furoate 0.0275 mg/actuat metered dose nasal spray (17 sources) Corticosteroid Start: 04-14-2025 take 1 spray(s) nasal route in the morning fluticasone (FLONASE SENSIMIST) 27.5 mcg/actuation nasal spray Indications: Chronic nonintractable headache, unspecified headache type Administer 1 spray into each nostril in the morning. 10 g 2 04/14/2025 Active Start: 05-10-2021 take 1 spray(s) nasa l route once daily Flonase Allergy Relief 50 MCG/ACT 1 spray in each nostril Nasally Once a day for 14 day(s) Apr, Not-Taking gabapentin 300 mg oral capsule (20 sources) Anti-epileptic Agent Start: 04-06-2025 take 1 capsule by mouth once daily at bedtime Start: 08-10-2024 End: 04-06-2025 take 1 capsule by mouth three times daily Gabapentin 300 mg capsule Discontinued 300 MG PO Three times daily April 05, 2025 8:41am April 06, 2025 12:36pm Start: 11-19-2020 End: 08-10-2024 Gabapentin 300 mg [...] f41.1 Active take 1 capsule by mo [facility] every six hours Gabapentin 300 MG 1 capsule Orally four times a day for 90 days f41.1 Active lactobacillus acidophilus [id number] unt oral capsule (5 sources) Start: 01-26-2025 take 10 capsules by mouth once daily Lactobacillus Acidophilus (Probiotic) 10 billion cell capsule Active 100 MMU CELLS PO Daily January 26, 2025 12:00am Complies with drug therapy Jybndttg-Wnb-Vanr-Fa-Vit K-Lut ([facility] [employer] [facility]) 8 mg iron-400 mcg-50 mcg tablet (5 sources) Start: 01-26-2025 take 1 tablet by mouth once daily Axfrmhcl-Eet-Cyno-Fa-Vi t K-Lut ([employer]) 8 mg iron-400 mcg-50 mcg tablet Active 1 TAB PO Daily January 26, 2025 12:00am Complies with drug therapy Start: 01-26-2025 take 1 tablet by michelle once daily Dqlqsqls-Ejf-Gelv-Fa-Vit K-Lut ([employer]) 8 mg iron-400 [...] at bedtime 90 August 18, 2024 2:33pm Complies with drug therapy Start: 12-10-2023 End: 08-18-2024 Trazodone 150 mg [...] Sig (Original) acetaminophen 500 mg oral tablet (9 sources) Start: 02-08-2025 End: 03-15-2025 take 1 [...] fever or pain January 26, 2025 12:00am Complies with drug therapy ALPRAZolam 0.25 mg oral tablet (20 sources) Benzodiazepine Start: 11-19-2020 End: 08-17-2024 take 1 tablet by mouth twice daily as needed for anxiety Alprazolam 0.25 mg Tablet Discontinued 0.25 MG PO Twice daily as needed for Anxiety November 19, 2020 1:00am August 17, 2024 11:25am azithromycin 250 mg oral tablet (20 sources) Macrolide Antimicrobial Start: 12-02-2023 End: 01-14-2024 Azithromycin Discontinued 0 PO .COMPLEX December 02, 2023 1:18pm January 14, 2024 11:16am For 250 mg dose pack: take 500 mg today (day 1), then 250 mg for 4 days (days 2-5) PO Start: 11-25-2023 End: 01-14-2024 Azithromycin 250 mg tablet D iscontinued 0 PO .COMPLEX December 02, 2023 2:18pm January 14, 2024 [...] mg for 4 days (days 2-5) PO benzonatate 100 mg oral capsule (1 source) Non-narcotic Antitussive Start: 12-03-2024 End: 04-14-2025 take 1 capsule by mouth every eight hours benzonatate (TESSALON PERLES) 100 mg capsule Take 1 capsule (100 mg total) by mouth every 8 (eight) hours. 21 capsule 12/03/2024 04/14/2025 Discontinued docusate sodium 100 mg oral capsule (4 sources) Start: 02-08-2025 End: 02-22-2025 take 1 capsule by mouth twice daily as needed for constipation Docusate Sodium (Colace) 100 mg capsule Discontinued 100 MG PO Twice daily as needed for Constipation 01 08February 08, 2025 12:00am February 22, 2025 2:46pm DO NOT RECONCILE UNTIL DOS 02/09/25 TO BE USED POST OP fluconazole 150 mg oral tablet (16 sources) Azole Antifungal Start: 05-12-2024 End: 05-31-2024 Fluconazole 150 mg tablet Discontinued 150 MG PO Q3D 2 May 12, 2024 12:00am May 31, 2024 10:37am fludrocortisone acetate 0.1 mg oral tablet (17 sources) Start: 11-19-2020 End: 01-15-2024 take 1 tablet by mouth once daily Fludrocortisone 0.1 mg Tablet Discontinued 0.1 MG PO Daily November 19, 2020 1:00am January 15, 2024 12:06pm ibuprofen 200 mg oral tablet (12 sources) Nonsteroidal Anti-inflammator y Drug Start: 09-13-2024 End: 01-26-2025 take 1 tablet by mouth every six hours as needed for pain Ibuprofen (Advil) 200 mg tablet Discontinued 200 MG PO Every 6 hours as needed for fever or pain September 13, 2024 1:00am January 26, 2025 4:02pm Leptisense (17 sources) Start: 11-19-2020 End: 01-15-2024 take 1 capsule by mouth once daily Leptisense Discontinued 1 CAP PO Daily November 19, 2020 12:00am January 15, 2024 11:07am Start: 11-19-2020 End: 01-15-2024 take 1 capsule by mouth once daily Leptisense Discontinued 1 CAP PO Daily November 19, 2020 1:00am January 15, 2024 12:07pm meloxicam 15 mg oral tablet (4 sources) Nonsteroidal Anti-inflammatory Drug Start: 02-08-2025 End: 02-22-2025 take 1 tablet by mouth once daily Meloxicam 15 mg tablet Discontinued 15 MG PO daily 14 February 08, 2025 12:00am February 22, 2025 2:46pm DO NOT RECONCILE UNTIL DOS 02/09/25 TO BE USED POST OP Nirmatrelvir-Rit onavir (17 sources) Start: 01-14-2024 End: 01-15-2024 Nirmatrelvir-Riton avir [...] / nitrofurantoin, monohydrate 75 mg oral capsule (15 sources) Nitrofuran Antibacterial Start: 06-10-2024 End: 08-17-2024 [...] 2024 11:44am oseltamivir 75 mg oral capsule (10 sources) Neuraminidase Inhibitor Start: 11-22-2024 End: 01-26-2025 take 1 capsule by mouth twice daily Oseltamivir 75 mg capsule Discontinued 75 MG PO Twice daily 07 17November 22, 2024 1:00am January 26, 2025 4:01pm oxyCODONE hydrochloride 5 mg oral tablet (4 sources) Opioid Agonist Start: 02-08-2025 End: 02-22-2025 [...] Active phenazopyridine hydrochloride 200 mg oral tablet (16 sources) Start: 05-31-2024 End: 08-17-2024 take 1 tablet by mouth three times daily as needed for pain Phenazopyridine (Pyridium) 200 mg tablet Discontinued 200 MG PO Three times daily as needed for pain May 31, 2024 12:00am August 17, 2024 11:01am sertraline 100 mg oral tablet (17 sources) Serotonin Reuptake Inhibitor Start: 11-19-2020 End: [...] needed Orally Three times a day Active vortioxetine 20 mg oral tablet (20 sources) Start: 11-19-2020 End: 02-25-2025 take 1 tablet by mouth once daily in the morning Vortioxetine (Trintellix) 20 mg tablet Discontinued 20 MG PO Every morning January 26, 2025 12:00am February 25, 2025 8:31am take 1 tablet by mouth in the mo rning vortioxetine (TRINTELLIX) 5 mg tablet Take 1 tablet (5 mg total) by mouth in the morning. Active Problems Active Problems Problem Classification Problem Date Documented Da te Episodic/Chronic Anxiety disorders (20 sources) Generalized anxiety disorder; Translations: [Generalized anxiety disorder] Onset: 3 01-17-2024 Chronic Chronic obstructive pulmonary disease and bronchiectasis (1 source) Bronchitis, not specified as acute or chronic; Translations: [Bronchitis, not specified as acute or chronic] Onset: Episodic Deficiency and other anemia (3 sources) Anemia; Translations: [Anemia, unspecified] 03-15-2025 Episodic Deficiency [...] aura, not intractable, without status migrainosus] Chronic Headache; including migraine (4 sources) Headache; Translations: [Chronic nonintractable headache, unspecified headache type] Onset: 5 04-14-2025 Episodic Influenza (16 sources) Upper respiratory tract infection due to Influenza; Translations: [Influenza due to unidentified influenza virus with other respiratory manifestations] 11-22-2024 Episodic Influenza (1 source) Influenza Onset: 5 Menopausal disorders (5 sources) Perimenopausal state; Translations: [Menopausal and female climacteric states] Onset: 5 04-14-2025 Chronic Mood disorders (20 sources) Moderate recurrent major depression; Translations: [Major depressive disorder, recurrent, moderate] Onset: 2 Resolved: 2 Chronic Mycoses (1 source) Candidiasis; Translations: [Candidiasis, unspecified] Episodic Nausea and vomiting (20 sources) Nausea; Translations: [Nausea] Episodic Nonspecific chest pain (20 sources) Left sided chest pain; Translations: [Chest pain, unspecified] Onset: 11-19-2020 Episodic Other aftercare (2 sources) Surgical follow-up; Translations: [Encounter for removal of sutures] 02-22-2025 Episodic Other aftercare (2 sources) Encounter for removal of sutures; Translations: [Encounter for removal of sutures] 02-22-2025 Episodic Other aftercare (2 sources) Removal of sutures done; Translations: [Encounter for removal of sutures] 02-22-2025 [...] and tendons in shoulder region, unspecified] Onset: 09-13-2024 Episodic Other connective tissue disease (9 sources) Biceps tendinitis; Translations: [Bicipital tendinitis, left shoulder] 01-13-2025 Episodic Other connective tissue disease (9 sources) Tear of left rotator cuff; Translations: [Unspecified rotator cuff tear or rupture of left shoulder, not specified as traumatic] 01-13-2025 Episodic Other connective tissue disease (9 sources) Rotator cuff impingement syndrome; Translations: [Impingement syndrome of left shoulder] 01-13-2025 Episodic Other connective tissue disease (6 sources) Bicipital tendinitis, left shoulder; Translations: [Bicipital tenosynovitis] 01-13-2025 Episodic Other connective tissue disease (6 sources) Impingement syndrome of left shoulder; Translations: [Disorders of bursae and tendons in shoulder region, unspecified] 01-13-2025 Episodic Other connective tissue disease (4 sources) Left rotator cuff syndrome; Translations: [Unspecified rotator cuff tear or rupture of left shoulder, not specified as traumatic] 09-13-2024 Episodic Other female genital disorders (4 sources) Abnormal uterine bleeding; Translations: [Abnormal uterine and vaginal bleeding, unspecified] Onset: 5 04-14-2025 Chronic Other female genital disorders (1 source) Abnormal uterine and vaginal bleeding, unspecified; Translations: [Abnormal uterine and vaginal bleeding, unspecified] Onset: 5 Chronic Other female genital disorders (1 source) Vaginal discharge; Translations: [Other specified noninflammatory disorders of vagina] 04-14-2025 Episodic Other gastrointestinal disorders (16 sources) History of bariatric surgical procedure; Translations: [...] left shoulder] Episodic Other non-traumatic joint disorders (9 sources) Pain of left acromioclavicular joint; Translations: [...] conditions (not mental disorders or infectious disease) (10 sources) Encounter for screening mammogram for malignant neoplasm of breast; Translations: [Patient encounter status] Onset: 2 Episodic Other upper respiratory infections [...] of diabetes mellitus] Episodic Residual codes; unclassified (6 sources) History of arthroscopic procedure on shoulder; Translations: [Other specified postprocedural states] 02-08-2025 Episodic Residual codes; unclassified (2 sources) Other specified postprocedural states; Translations: [Other postprocedural status] 02-22-2025 Episodic Residual codes; unclassified (2 sources) Family history of cancer of colon; Translations: [Family history of malignant neoplasm of digestive organs] 03-15-2025 Episodic Comment on above: mother 2024 Residual codes; unclassified (5 sources) Flushing; Translations: [Flushing] Onset: 5 04-14-2025 Episodic Residual codes; unclassified (1 source) Reduced libido; Translations: [Decreased libido] 04-18-2025 Episodic Spondylosis; intervertebral disc disorders; other back [...] Translations: [Acute candidiasis of vulva and vagina] Unclassified (1 source) Z12.11 - Encounter for screening for malignant neoplasm of colon,Z80.0 - Family history of malignant neoplasm of digestive organs Past or Other Problems Problem Classification Problem [...] vagina; Translations: [Yeast infection of the vagina] Unclassified (3 sources) Onset: 04-14-2025 04-14-2025 Viral infection (2 sources) Disease caused by 2019-nCoV; Translations: [COVID-19] Results Test Name Value Interpretation Reference Range Facility HIGH RISK HPV W/GENOon 04-14 HPV [address] [facility] Comment on above: Performed By: #### H PV #### [facility] ([facility]) [address] [place] [address] VIR HPV [address] [facility] Comment on above: Performed By: #### H PV #### [facility] ([facility]) [address] [place] [address] VIR OTHER HIGH RISK HPV Negative Normal Negative [facility] Comment on above: Result Comment: HPV types 31, 33, 35, 39, 45, 52, 56, 58, 59, 66, and 68 DNA were undetectable. Performed By: #### H PV #### [facility] ([facility]) [address] [place] [address] VIR VAGINITIS PANEL PCRon 2024 VAGINITIS PANEL PCR BACT. VAGINOSIS DNA Not Detected Qualitative results are reported based on detection and quantitation of targeted organism markers which include: Lactobacillus spp. (L. crispatus and L. jensenii), Gardnerella vaginalis, Atopobium vaginae, Bacterial Vaginosis Associated Bacteria-2 (BVAB-2) and Megasphaera-1. DALE SPECIES DNA Not Detected Dale species not detected include: C. albicans, C. tropicalis, C. parapsilosis or C. dubliniensis. DALE KRUSEI DNA Not Detected No Dale krusei detected. DALE GLABRATA DNA Not Detected No Dale glabrata detected. TRICHOMONAS VAG DNA Not Detected No Trichomonas vaginalis detected. BD MAX Vaginal Panel has not been evaluated for patients under 18 years old. Results for these patients should be reviewed and assessed in accordance with clinical presentation to determine patient diagnosis. Normal [facility] Comment on above: Performed By: #### V PPCR #### [facility] ([facility]) [address] [place] [address] VIR HCG,Urineon 04-07-2025 Beta HCG ( test) Ql (U) Negative Normal [facility] Comment on above: Result Comment: PERF ORMED BY: [place] [address] PATHOLOGIST [employer] KATHRYN FERRARO M.D. Performed By: #### U HCG #### [address] Basophils Auto (Bld) [#/Vol] Ordered By: Conner Good on 04-02-2025 Basophils (Bld) [#/Vol] 0.1 10 3/uL 0.0-0.1 [facility] Basophils/100 WBC Auto (Bld) Ordered By: Conner Good on 04-02-2025 Basophils/100 WBC (Bld) 2.3 % High 0.2-2.0 [facility] Cholesterol in LDL Calc [Mas s/Vol]Ordered By: Conner Good on 04-02-2025 Cholesterol in LDL [Mass/Vol] 85.0 mg/dL [facility] Comment on above: <100 mg/dl [id number] 0-129 mg/dl NEAR OR ABOVE [id number] mg/dl BORDERLINE [id number] mg/dl HIGH>190 mg/dl VERY HIGH Cholesterol in VLDL Calc [Ma ss/Vol]Ordered By: Conner Good on 04-02-2025 Cholesterol in VLDL [Mass/Vol] 17.2 mg/dL [facility] Eosinophils/100 WBC Auto (Bl d)Ordered By: Conner Good on 04-02-2025 Eosinophils/100 WBC (Bld) 3.5 % 0.9-7.0 [facility] Erythrocyte distribution wid th Auto (RBC) [Ratio]Ordered By: Conner Good on 04-02-2025 Erythrocyte distribution width (RBC) [Ratio] 14.8 % 11.0-15.0 [facility] Hematocrit Auto (Bld) [Volum e fraction]Ordered By: Conner Good on 04-02-2025 Hematocrit (Bld) [Volume fraction] 32.0 % Low 36.0-48.0 [facility] Hemoglobin [Mass/volume] in BloodOrdered By: Conner Good on 04-02-2025 Hemoglobin (Bld) [Mass/Vol] 10.0 g/dL Low 12.0-16.0 [facility] Laboratory - Chemistry and C hemistry - challengeOrdered By: Conner Good on 04-02-2025 Cholesterol [Mass/Vol] 164 mg/dL <=200 [facility] Cholesterol in HDL [Mass/Vol] 62 mg/dL High 40-60 [facility] Comment on above: > or =60 mg/dl - LOW CARDIOVASCULAR RISK<40 mg/dl - HIGH CARDIOVASCULAR RISK Triglyceride [Mass/Vol] 86 mg/dL <=150 [facility] - Hematology and Cell countsOrdered By: Conner Good on 04-02-2025 Immature granulocytes/100 WBC (Bld) 0.3 % 0.0-0.5 [facility] Leukocytes [#/volume] correc jenn for nucleated erythrocytes in Blood by Automated counOrdered By: Conner Good on 04-02-2025 WBC corrected for nucl RBC Auto (Bld) [#/Vol] 4.0 10 3/uL 4.0-11.0 [facility] Lymphocytes Auto (Bld) [#/Vo l]Ordered By: Conner Good on 04-02-2025 Lymphocytes (Bld) [#/Vol] 0.9 10 3/uL Low 1.2-3.8 [facility] Lymphocytes/100 WBC Auto (Bl d)Ordered By: Conner Good on 04-02-2025 Lymphocytes/100 WBC (Bld) 21.4 % 20.5-60.0 [facility] MCH Auto (RBC) [Entitic mass ]Ordered By: Conner Good on 04-02-2025 MCH (RBC) [Entitic mass] 25.5 pg Low 26.7-34.0 [facility] MCHC Auto (RBC) [Mass/Vol]Or dered By: Conner Good on 04-02-2025 MCHC (RBC) [Mass/Vol] 31.3 g/dL 29.9-35.2 [facility] MCV Auto (RBC) [Entitic vol] Ordered By: Conner Good on 04-02-2025 MCV (RBC) [Entitic vol] 81.6 fL 81.0-99.0 F [facility] Monocytes Auto (Bld) [#/Vol] Ordered By: Conner Good on 04-02-2025 Monocytes (Bld) [#/Vol] 0.4 10 3/uL 0.3-0.8 [facility] Monocytes/100 WBC Auto (Bld) Ordered By: Conner Good on 04-02-2025 Monocytes/100 WBC (Bld) 9.8 % 1.7-12.0 [facility] Neutrophils Auto (Bld) [#/Vo l]Ordered By: Conner Good on 04-02-2025 Neutrophils (Bld) [#/Vol] 2.5 10 3/uL 1.4-6.5 [facility] Neutrophils/100 WBC Auto (Bl d)Ordered By: Conner Good on 04-02-2025 Neutrophils/100 WBC (Bld) 62.7 % 43.0-75.0 [facility] No Panel InformationOrdered By: Conner Good on 04-02-2025 Eosinophils # (Auto) 0.1 10 3/uL 0.0-0.7 [facility] [place] Immature Granulocyte # (Auto) 0.01 10 3/uL 0.00-0.03 [facility] Platelet mean volume Auto (B ld) [Entitic vol]Ordered By: Conner Good on 04-02-2025 Platelet mean volume (Bld) [Entitic vol] 9.9 fL 9.5-13.5 [facility] Platelets Auto (Bld) [#/Vol] Ordered By: Conner Good on 04-02-2025 Platelets (Bld) [#/Vol] 235 10 3/uL 150-450 [facility] RBC Auto (Bld) [#/Vol]Ordere d By: Conner Good on 04-02-2025 RBC (Bld) [#/Vol] 3.92 10 6/uL Low 4.20-5.40 [facility] Serum or plasma total choles terol/high density lipoprotein (HDL) cholesterol mass ratOrdered By: Conner Good on 04-02-2025 Cholesterol.total/Choles terol in HDL [Mass ratio] 2.6 {ratio} [facility] Comment on above: 3.3 - 4.4 LOW RISK4. 4 - 7.1 AVERAGE RISK7.1 - 11.0 MODERATE RISK>11.0 HIGH RISK HCG ( test) IA.rapi d Ql (U)Ordered By: Zach Celaya on 02-09-2025 HCG ( test) Ql (U) Urine human chorionic gonadotropin (hCG) detection by immunoassay [facility] HCG ( test) Ql (U) Negative [facility] HCG,Urineon 02-09-2025 Beta HCG ( test) Ql (U) Negative Normal [facility] Comment on above: Result Comment: PERF ORMED BY: [place] [address] PATHOLOGIST [employer] MET[employer] ELISHA BRANDON M.D. Performed By: #### U HCG #### [facility] [address] [place] [address] [place] Alanine aminotransferase [En zymatic activity/volume] in Serum or PlasmaOrdered By: Zach Celaya on 01-26-2025 ALT [Catalytic activity/Vol] Alanine aminotransferase [Enzymatic activity/volume] in Serum or Plasma [facility] ALT [Catalytic activity/Vol] 13 U/L Normal [facility] Comment on above: Performed By: #### C MP wRFX A1C, CBC #### [facility] [address] [place] [id number] [place] Albumin [Mass/volume] in Ser um or Plasma by Bromocresol green (BCG) dye binding methoOrdered By: Zach Celaya on 01-26-2025 Albumin BCG dye [Mass/Vol] Albumin [Mass/volume] in Serum or Plasma by Bromocresol green (BCG) dye binding metho 3.5-5.7 [facility] Albumin BCG dye [Mass/Vol] 3.8 g/dL 3.5-5.7 [facility] Alkaline phosphatase [Enzyma tic activity/volume] in Serum or PlasmaOrdered By: Zach Celaya on 01-26-2025 ALP [Catalytic activity/Vol] Alkaline phosphatase [Enzymatic activity/volume] in Serum or Plasma 34-104 [facility] ALP [Catalytic activity/Vol] 60 U/L Normal 34-104 [facility] Comment on above: Result Comment: PERF ORMED BY: [place] [address] PATHOLOGIST [employer] ELISHA BRANDON M.D. Performed By: #### C MP wRFX A1C, CBC #### [facility] [address] [place] [address] Aspartate aminotransferase [ Enzymatic activity/volume] in Serum or PlasmaOrdered By: Zach Celaya on 01-26-2025 AST [Catalytic activity/Vol] Aspartate aminotransferase [Enzymatic activity/volume] in Serum or Plasma 13-39 [facility] AST [Catalytic activity/Vol] 17 U/L Normal 13-39 [facility] Comment on above: Performed By: #### C MP wRFX A1C, CBC #### [facility] [address] [place] [address] [place] Basophils Auto (Bld) [#/Vol] Ordered By: Zach Celaya on 01-26-2025 Basophils (Bld) [#/Vol] Automated basoph il count 0.0-0.2 [facility] Basophils [#/volume] in Bloo d by Automated countOrdered By: Zach Celaya on 01-26-2025 Basophils (Bld) [#/Vol] 0.1 10*3/uL Normal 0.0-0.2 [facility] Comment on above: Result Comment: PERF ORMED BY: [address] [place] [address] PATHOLOGIST [employer] ELISHA BRANDON M.D. Performed By: #### C MP wRFX A1C, CBC #### [address] Basophils/100 WBC Auto (Bld) Ordered By: Zach Celaya on 01-26-2025 Basophils/100 WBC (Bld) Automated basophil % . [facility] Basophils/100 leukocytes in Blood by Automated countOrdered By: Zach Celaya on 01-26-2025 Basophils/100 WBC (Bld) 1.2 % Normal . [facility] Comment on above: Performed By: #### C MP wRFX A1C, CBC #### [address] Bilirubin.total [Mass/volume ] in Serum or PlasmaOrdered By: Zach Celaya on 01-26-2025 Bilirubin [Mass/Vol] Bilirubin.total [Mass/volume] in Serum or Plasma 0.3-1.0 [facility] Bilirubin [Mass/Vol] 0.5 mg/dL Normal 0.3-1.0 [facility] Comment on above: Performed By: #### C MP wRFX A1C, CBC #### [address] CMP with reflex to A1Con Albumin [Mass/Vol] 3.8 g/dL Normal 3.5-5.7 [facility] Comment on above: Performed By: #### C MP wRFX A1C, CBC #### [facility] [address] [place] [address] [place] GFR/1.73 sq M.predicted MDRD (S/P/Bld) [Vol rate/Area] mL/min/{1.73_m2} Normal [facility] Comment on above: Performed By: #### C MP wRFX A1C, CBC #### [facility] [address] [place] [address] [place] Calcium [Mass/volume] in Ser um or PlasmaOrdered By: Zach Celaya on 01-26-2025 Calcium [Mass/Vol] Calcium [Mass/volume] in Serum or Plasma 8.6-10.3 [facility] Calcium [Mass/Vol] 9.1 mg/dL Normal 8.6-10.3 [facility] Comment on above: Performed By: #### C MP wRFX A1C, CBC #### [facility] [address] Carbon dioxide, total [Moles /volume] in Serum or PlasmaOrdered By: Zach Celaya on 01-26-2025 CO2 [Moles/Vol] Carbon dioxide, total [Moles/volume] in Serum or Plasma 21.0-31.0 [facility] CO2 [Moles/Vol] 30.6 mmol/L Normal 21.0-31.0 [facility] Comment on above: Performed By: #### C MP wRFX A1C, CBC #### [facility] [address] [place] [address] [place] Chloride [Moles/volume] in S gucci or PlasmaOrdered By: Zach Celaya on 01-26-2025 Chloride [Moles/Vol] Chloride [Moles/volume] in Serum or Plasma 98-107 [facility] Chloride [Moles/Vol] 104 mmol/L Normal 98-107 [facility] Comment on above: Performed By: #### C MP wRFX A1C, CBC #### [facility] [address] Complete Blood Count Auto Di ffon 01-26-2025 Mean Corpuscular HGB Conc 32.3 g/dL Normal 32.0-35.0 [facility] Comment on above: Performed By: #### C MP wRFX A1C, CBC #### [facility] [address] [place] [address] [place] NRBC% 0.1 /100{WBC} Normal 0-0.5 [facility] Comment on above: Performed By: #### C MP wRFX A1C, CBC #### [facility] [address] [place] [address] [place] Creatinine [Mass/volume] in Serum or PlasmaOrdered By: Zach Celaya on 01-26-2025 Creatinine [Mass/Vol] Creatinine [Mass/volume] in Serum or Plasma 0.60-1.20 [facility] Creatinine [Mass/Vol] 0.69 mg/dL Normal 0.60-1.20 [facility] [place] Comment on above: Performed By: #### C MP wRFX A1C, CBC #### [facility] [address] ECG 12 lead ECGon 01-26-2025 ECG [address] [facility] [address] [place] [address] Electrocardiograph Report Signed Patient: Dylan Mooney MR#: [id number] : 1975 Acct:[id number] Age/Sex: 49 / F ADM Date: 01/26/25 Loc: Room: Type: [facility] Attending Dr: Zach Celaya DO Ordering Provider: Zach Celaya [...] Signed By Zeina Ohara MD 0 01/26/25 2507 Normal [facility] Eosinophils Auto (Bld) [#/Vo l]Ordered By: Zach Celaya on 01-26-2025 Eosinophils (Bld) [#/Vol] Automated eosinophil count 0.0-0.45 [facility] Eosinophils [#/volume] in Bl ood by Automated countOrdered By: Zach Celaya on 01-26-2025 Eosinophils (Bld) [#/Vol] 0.1 10*3/uL Normal 0.0-0.45 [facility] Comment on above: Performed By: #### C MP wRFX A1C, CBC #### [facility] [address] Eosinophils/100 WBC Auto (Bl d)Ordered By: Zach Celaya on 01-26-2025 Eosinophils/100 WBC (Bld) Automated eosinophil % . [facility] Eosinophils/100 leukocytes i n Blood by Automated countOrdered By: Zach Celaya on 01-26-2025 Eosinophils/100 WBC (Bld) 2.9 % Normal . [facility] Comment on above: Performed By: #### C MP wRFX A1C, CBC #### [facility] [address] Erythrocyte distribution wid th Auto (RBC) [Ratio]Ordered By: Zach Celaya on 01-26-2025 Erythrocyte distribution width (RBC) [Ratio] Erythrocyte distribution width [Ratio] by Automated count High 11.9-15.3 [facility] Erythrocyte distribution wid th [Ratio] by Automated countOrdered By: Zach Celaya on 01-26-2025 Erythrocyte distribution width (RBC) [Ratio] 15.9 % High 11.9-15.3 [facility] Comment on above: Performed By: #### C MP wRFX A1C, CBC #### [facility] [address] Erythrocytes [#/volume] in B lood by Automated countOrdered By: Zach Celaya on 01-26-2025 RBC (Bld) [#/Vol] 3.91 10*6/uL Normal 3.60-5.00 [facility] Comment on above: Performed By: #### C MP wRFX A1C, CBC #### [facility] [address] Globulin Calc (S) [Mass/Vol] Ordered By: Zach Celaya on 01-26-2025 Globulin (S) [Mass/Vol] Serum globulin measurement by calculation (mass/volume) [facility] Glucose [Mass/volume] in Ser um or PlasmaOrdered By: Zach Celaya on 01-26-2025 Glucose [Mass/Vol] Glucose [Mass/volume] in Serum or Plasma 70-100 [facility] Glucose [Mass/Vol] 82 mg/dL Normal 70-100 [facility] Comment on above: Performed By: #### C MP wRFX A1C, CBC #### [facility] [address] [place] [address] Hematocrit Auto (Bld) [Volum e fraction]Ordered By: Zach Celaya on 01-26-2025 Hematocrit (Bld) [Volume fraction] Hematocrit [Volume Fraction] of Blood by Automated count Low 34.0-46.4 [facility] Hematocrit [Volume Fraction] of Blood by Automated countOrdered By: Zach Celaya on 01-26-2025 Hematocrit (Bld) [Volume fraction] 30.3 % Low 34.0-46.4 [facility] Comment on above: Performed By: #### C MP wRFX A1C, CBC #### [facility] [address] [place] [address] Hemoglobin [Mass/volume] in BloodOrdered By: Zach Celaya on 01-26-2025 Hemoglobin (Bld) [Mass/Vol] Hemoglobin [Mass/volume] in Blood Low 11.8-15.4 [facility] Hemoglobin (Bld) [Mass/Vol] 9.8 g/dL Low 11.8-15.4 [facility] Comment on above: Performed By: #### C MP wRFX A1C, CBC #### [facility] [address] [place] [address] Leukocytes [#/volume] correc jenn for nucleated erythrocytes in Blood by Automated counOrdered By: Zach Celaya on 01-26-2025 WBC corrected for nucl RBC Auto (Bld) [#/Vol] Leukocytes [#/volume] corrected for nucleated erythrocytes in Blood by Automated coun 3.8-11.6 [facility] WBC corrected for nucl RBC Auto (Bld) [#/Vol] 4.9 10*3/uL 3.8-11.6 [facility] Leukocytes [#/volume] in Blo od by Automated countOrdered By: Zach Celaya on 01-26-2025 WBC (Bld) [#/Vol] 4.9 10*3/uL Normal 3.8-11.6 [facility] Comment on above: Performed By: #### C MP wRFX A1C, CBC #### [facility] [address] Lymphocytes Auto (Bld) [#/Vo l]Ordered By: Zach Celaya on 01-26-2025 Lymphocytes (Bld) [#/Vol] Lymphocytes [#/volume] in Blood by Automated count 1.00-4.8 [facility] Lymphocytes [#/volume] in Bl ood by Automated countOrdered By: Zach Celaya on 01-26-2025 Lymphocytes (Bld) [#/Vol] 1.2 10*3/uL Normal 1.00-4.8 [facility] Comment on above: Performed By: #### C MP wRFX A1C, CBC #### [address] Lymphocytes/100 WBC Auto (Bl d)Ordered By: Zach Celaya on 01-26-2025 Lymphocytes/100 WBC (Bld) Lymphocytes/100 leukocytes in Blood by Automated count . [facility] Lymphocytes/100 leukocytes i n Blood by Automated countOrdered By: Zach Celaya on 01-26-2025 Lymphocytes/100 WBC (Bld) 24.4 % Normal . [facility] Comment on above: Performed By: #### C MP wRFX A1C, CBC #### [address] MCH Auto (RBC) [Entitic mass ]Ordered By: Zach Celaya on 01-26-2025 MCH (RBC) [Entitic mass] MCH [Entitic ma ss] by Automated count 24.7-34.3 [facility] MCH [Entitic mass] by Automa jenn countOrdered By: Zach Celaya on 01-26-2025 MCH (RBC) [Entitic mass] 25.0 pg Normal 24.7-34.3 [facility] Comment on above: Performed By: #### C MP wRFX A1C, CBC #### [address] [address] [place] MCHC Auto (RBC) [Mass/Vol]Or dered By: Zach Celaya on 01-26-2025 MCHC (RBC) [Mass/Vol] MCHC [Mass/volume] by Automated count 32.0-35.0 [facility] MCHC (RBC) [Mass/Vol] 32.3 g/dL 32.0-35.0 [facility] [place] MCV Auto (RBC) [Entitic vol] Ordered By: Zach Celaya on 01-26-2025 MCV (RBC) [Entitic vol] MCV [Entitic vol ume] by Automated count Low 80-100 [facility] MCV [Entitic volume] by Auto mated countOrdered By: Zach Celaya on 01-26-2025 MCV (RBC) [Entitic vol] 77.6 fL Low 80-100 [facility] Comment on above: Performed By: #### C MP wRFX A1C, CBC #### [facility] [address] [place] [address] Monocytes Auto (Bld) [#/Vol] Ordered By: Zach Celaya on 01-26-2025 Monocytes (Bld) [#/Vol] Automated blood monocyte count 0.0-0.8 [facility] Monocytes [#/volume] in Bloo d by Automated countOrdered By: Zach Celaya on 01-26-2025 Monocytes (Bld) [#/Vol] 0.4 10*3/uL Normal 0.0-0.8 [facility] Comment on above: Performed By: #### C MP wRFX A1C, CBC #### [facility] [address] [place] [address] Monocytes/100 WBC Auto (Bld) Ordered By: Zach Celaya on 01-26-2025 Monocytes/100 WBC (Bld) Automated monocyte % . [facility] Monocytes/100 leukocytes in Blood by Automated countOrdered By: Zach Celaya on 01-26-2025 Monocytes/100 WBC (Bld) 8.2 % Normal . [facility] Comment on above: Performed By: #### C MP wRFX A1C, CBC #### [facility] [address] [place] [address] Neutrophils Auto (Bld) [#/Vo l]Ordered By: Zach Celaya on 01-26-2025 Neutrophils (Bld) [#/Vol] Neutrophils [#/volume] in Blood by Automated count 1.8-7.7 [facility] Neutrophils [#/volume] in Bl ood by Automated countOrdered By: Zach Celaya on 01-26-2025 Neutrophils (Bld) [#/Vol] 3.1 10*3/uL Normal 1.8-7.7 [facility] Comment on above: Performed By: #### C MP wRFX A1C, CBC #### [address] Neutrophils/100 WBC Auto (Bl d)Ordered By: Zach Celaya on 01-26-2025 Neutrophils/100 WBC (Bld) Automated neutrophil % . [facility] Neutrophils/100 leukocytes i n Blood by Automated countOrdered By: Zach Celaya on 01-26-2025 Neutrophils/100 WBC (Bld) 63.3 % Normal . [facility] Comment on above: Performed By: #### C MP wRFX A1C, CBC #### [facility] [address] [place] [address] No Panel InformationOrdered By: Zach Celaya on 01-26-2025 Estimated GFR (CKD-EPI) > 60.0 mL/Min [facility] Creatinine Clearance (Chem N/A [facility] Nucleated erythrocytes [Pres ence] in Blood by Automated countOrdered By: Zach Celaya on 01-26-2025 Nucleated RBC Auto Ql (Bld) Nucleated erythrocytes [Presence] in Blood by Automated count 0-0.5 [facility] Nucleated RBC Auto Ql (Bld) 0.1 /100{WBC} 0-0.5 [facility] Platelet mean volume Auto (B ld) [Entitic vol]Ordered By: Zach Celaya on 01-26-2025 Platelet mean volume (Bld) [Entitic vol] Platelet mean volume [Entitic volume] in Blood by Automated count 6.3-10.7 [facility] Platelet mean volume [Entiti c volume] in Blood by Automated countOrdered By: Zach Celaya on 01-26-2025 Platelet mean volume (Bld) [Entitic vol] 7.9 fL Normal 6.3-10.7 [facility] Comment on above: Performed By: #### C MP wRFX A1C, CBC #### [facility] [address] Platelets Auto (Bld) [#/Vol] Ordered By: Zach Celaya on 01-26-2025 Platelets (Bld) [#/Vol] Platelets [#/vol ume] in Blood by Automated count 150-450 [facility] Platelets [#/volume] in Bloo d by Automated countOrdered By: Zach Celaya on 01-26-2025 Platelets (Bld) [#/Vol] 248 10*3/uL Normal 150-450 [facility] Comment on above: Performed By: #### C MP wRFX A1C, CBC #### [facility] [address] [place] [address] Potassium [Moles/volume] in Serum or PlasmaOrdered By: Zach Celaya on 01-26-2025 Potassium [Moles/Vol] Potassium [Moles/volume] in Serum or Plasma 3.5-5.1 [facility] Potassium [Moles/Vol] 4.1 mmol/L Normal 3.5-5.1 [facility] [place] Comment on above: Performed By: #### C MP wRFX A1C, CBC #### [facility] [address] [place] [address] [place] Protein [Mass/volume] in Ser um or PlasmaOrdered By: Zach Celaya on 01-26-2025 Protein [Mass/Vol] Protein [Mass/volume] in Serum or Plasma 6.4-8.9 [facility] Protein [Mass/Vol] 7.1 g/dL Normal 6.4-8.9 [facility] Comment on above: Performed By: #### C MP wRFX A1C, CBC #### [address] RBC Auto (Bld) [#/Vol]Ordere d By: Zach Celaya on 01-26-2025 RBC (Bld) [#/Vol] Erythrocytes [#/volume] in Blood by Automated count 3.60-5.00 [facility] Serum globulin measurement b y calculation (mass/volume)Ordered By: Zach Celaya on 01-26-2025 Globulin (S) [Mass/Vol] 3.3 g/dL Normal [facility] Comment on above: Performed By: #### C MP wRFX A1C, CBC #### [facility] [address] Serum or plasma albumin/glob ulin mass ratioOrdered By: Zach Celaya on 01-26-2025 Albumin/Globulin [Mass ratio] Serum or plasma albumin/globulin mass ratio [facility] Albumin/Globulin [Mass ratio] 1.2 {ratio} Normal [facility] Comment on above: Performed By: #### C MP wRFX A1C, CBC #### [facility] [address] [place] [address] Serum or plasma anion gap de terminationOrdered By: Zach Celaya on 01-26-2025 Anion gap [Moles/Vol] Serum or plasma anion gap determination 6.0-15.0 [facility] Anion gap [Moles/Vol] 7.5 mmol/L Normal 6.0-15.0 [facility] [place] Comment on above: Performed By: #### C MP wRFX A1C, CBC #### [facility] [address] [place] [address] Sodium [Moles/volume] in Ser um or PlasmaOrdered By: Zach Celaya on 01-26-2025 Sodium [Moles/Vol] Sodium [Moles/volume] in Serum or Plasma 136-145 [facility] Sodium [Moles/Vol] 138 mmol/L Normal 136-145 [facility] Comment on above: Performed By: #### C MP wRFX A1C, CBC #### [facility] [address] [place] [address] Urea nitrogen [Mass/volume] in Serum or PlasmaOrdered By: Zach Celaya on 01-26-2025 Urea nitrogen [Mass/Vol] Urea nitrogen [Mass/volume] in Serum or Plasma 05-06 [facility] Urea nitrogen [Mass/Vol] 12 mg/dL Normal 05-06 [facility] Comment on above: Performed By: #### C MP wRFX A1C, CBC #### [facility] [address] [place] [id number] [facility] WBC Auto (Bld) [#/Vol]Ordere d By: Zach Celaya on 01-26-2025 WBC (Bld) [#/Vol] Leukocytes [#/volume] in Blood by Automated count 3.8-11.6 [facility] MR shoulder LT wo conon 03-3 MR shoulder LT wo con [facility] [address] [place] [address] MRI Report Signed Patient: Dylan Mooney MR#: [id number] : 1975 Acct:[id number] Age/Sex: 49 / F ADM Date: 01/10/25 Loc: [facility] Room: Type: [facility] Attending Dr: Zach Celaya DO Copies to: [...] Oseguera Jr., D.O.01/10/2025 11:14 AM Dictation Location: [place] [address] Transcribed By: NADIYA 01/10/25 1114 Dictated By: Darrin Oseguera Jr, DO 01/10/25 1111 Signed By: 01/10/25 1114 Normal [facility] Magnetic resonance imaging r eportOrdered By: Darrin Oseguera on 01-10-[address] [facility] [address] [place] [address] MRI Report Signed Patient: Dylan Mooney MR#: [id number] : 1975 Acct:[id number] Age/Sex: 49 / F ADM Date: Loc: [facility] Room: Type: [facility] Attending Dr: Zach Celaya DO Copies to: [...] OR BONE MARROW EDEMA. Impression dictated by: Efren Pan Jr.ONeymar01/10/2025 11:14 AM Dictation Location: RADIO-PC-23 Transcribed By: PWS 01/10/25 1114 Dictated By: Darrin Oseguera Jr, DO 01/10/25 1111 Signed By: 01/10/25 1114 [facility] BASIC METABOLIC PANLon 12-03 Anion gap [Moles/Vol] 4 mmol/L Low 5-15 [facility] Comment on above: Performed By: #### C BCA, 94447-0, 55680-1, BMP #### [facility] ([id number]) [address] [place] [address] Calcium [Mass/Vol] 8.5 mg/dL Normal 8.5-10.5 [facility] Comment on above: Performed By: #### C BCA, 74822-1, 26503-7, BMP #### [facility] ([id number]) [address] [place] [address] Chloride [Moles/Vol] 106 mmol/L Normal 98-109 [facility] Comment on above: Performed By: #### C BCA, 10875-5, 47089-0, BMP #### [facility] ([id number]) [address] [place] [address] CO2 [Moles/Vol] 29 mmol/L Normal 22-32 [facility] Comment on above: Performed By: #### C BCA, 64595-0, 56448-5, BMP #### [facility] ([id number]) [address] [place] [address] Creatinine [Mass/Vol] 0.74 mg/dL Normal 0.40-1.00 [facility] Comment on above: Result Comment: METH OD TRACEABLE TO IDMS STANDARD Performed By: #### C BCA, 64055-5, 87680-6, BMP #### [facility] ([id number]) [address] [place] [address] eGFR (CKD-EPI) NON-RACE DEPENDENT >90 Normal >59 [facility] Comment on above: Result Comment: Reported eGFR is based on the CKD-EPI 2020 equation that does not use a race coefficient. Performed By: #### C HEIDE, 49046-7, 64827-7, BMP #### [facility] ([id number]) [address] [place] [address] Glucose [Mass/Vol] 93 mg/dL Normal 65-99 [facility] Comment on above: Performed By: #### C HEIDE, 06699-5, 48885-9, BMP #### [facility] ([id number]) [address] [place] [address] Potassium [Moles/Vol] 3.7 mmol/L Normal 3.5-5.0 [facility] Comment on above: Performed By: #### Angie JAEGER, 46131-1, 13045-7, BMP #### [facility] ([id number]) [address] [place] [address] Sodium [Moles/Vol] 139 mmol/L Normal 134-146 [facility] Comment on above: Performed By: #### Angie JAEGER, 05313-0, 60858-6, BMP #### [facility] ([id number]) [address] [place] [address] Urea nitrogen [Mass/Vol] 13 mg/dL Normal 5-23 [facility] Comment on above: Performed By: #### C HEIDE, 84282-6, 72435-9, BMP #### [facility] [facility] ([id number]) [address] [place] [address] 70750 CBC AND AUTO DIFFon 12-03-19 25 ABSOLUTE BASOPHIL 0.1 X10E9/L Normal 0.0-0.2 [facility] Comment on above: Performed By: #### Angie JAEGER, 45511-4, 11339-6, BMP #### [facility] ([id number]) [address] [place] [address] 32341 ABSOLUTE NEUTROPHIL 3.8 X10E9/L Normal 1.5-6.6 [facility] Comment on above: Performed By: #### Angie JAEGER, 92719-0, 14055-3, BMP #### [facility] ([id number]) [address] [place] [address] 55883 Basophils/100 WBC (Bld) 1.0 % Normal [facility] Comment on above: Performed By: #### Angie JAEGER, 17006-0, 59621-8, BMP #### [facility] ([id number]) [address] [place] [address] 02177 Eosinophils (Bld) [#/Vol] 0.1 10*3/uL Normal 0.0-0.4 [facility] Comment on above: Performed By: #### Angie JAEGER, 23161-6, 95958-4, BMP #### [facility] ([id number]) [address] [place] [address] 07689 Eosinophils/100 WBC (Bld) 2.5 % Normal [facility] Comment on above: Performed By: #### Angie JAEGER, 34913-2, 04247-9, BMP #### [facility] ([id number]) [address] [place] [address] 56379 Erythrocyte distribution width (RBC) [Ratio] 15.6 % High 11.5-15.0 [facility] Comment on above: Performed By: #### Angie JAEGER, 76519-6, 62306-2, BMP #### [facility] ([id number]) [address] [place] [address] 20955 Hematocrit (Bld) [Volume fraction] 30.2 % Low 35-47 [facility] Comment on above: Performed By: #### Angie JAEGER, 53094-0, 90634-1, BMP #### [facility] ([id number]) [address] [place] [address] 78629 Hemoglobin (Bld) [Mass/Vol] 9.8 g/dL Low 11.7-15.5 [facility] Comment on above: Performed By: #### Angie JAEGER, 14126-6, 45034-1, BMP #### [facility] ([id number]) [address] [place] [address] 57340 Lymphocytes (Bld) [#/Vol] 1.6 10*3/uL Normal 1.0-3.5 [facility] Comment on above: Performed By: #### Angie JAEGER, 14821-4, 89843-7, BMP #### [facility] ([id number]) [address] [place] [address] 46265 Lymphocytes/100 WBC (Bld) 26.7 % Normal [facility] Comment on above: Performed By: #### Angie JAEGER, 46695-3, 41989-9, BMP #### [facility] ([id number]) [address] [place] [address] 22247 MCH (RBC) [Entitic mass] 25.1 pg Low 27-34 [facility] Comment on above: Performed By: #### Angie JAEGER, 48842-6, 40817-6, BMP #### [facility] ([id number]) [address] [place] [address] 03894 MCHC (RBC) [Mass/Vol] 32.4 g/dL Normal 32-36 [facility] Comment on above: Performed By: #### Angie JAEGER, 52387-2, 87493-7, BMP #### [facility] ([id number]) [address] [place] [address] 31121 MCV (RBC) [Entitic vol] 78 fL Low 80-100 [facility] Comment on above: Performed By: #### Angie JAEGER, 88723-3, 91652-6, BMP #### [facility] ([id number]) [address] [place] [address] 72447 Monocytes (Bld) [#/Vol] 0.5 10*3/uL Normal 0-0.9 [facility] Comment on above: Performed By: #### Angie JAEGER, 18133-9, 47858-1, BMP #### [facility] ([id number]) [address] [place] [address] 02503 Monocytes/100 WBC (Bld) 7.6 % Normal [facility] Comment on above: Performed By: #### Angie JAEGER, 76692-0, 26640-0, BMP #### [facility] ([id number]) [address] [place] [address] 95060 Neutrophils/100 WBC (Bld) 62.2 % Normal [facility] Comment on above: Performed By: #### Angie JAEGER, 52822-1, 59039-1, BMP #### [facility] ([id number]) [address] [place] [address] 94193 Platelet mean volume (Bld) [Entitic vol] 7.5 fL Normal 7-12 [facility] Comment on above: Performed By: #### Angie JAEGER, 86984-1, 22960-0, BMP #### [facility] ([id number]) [address] [place] [address] 19155 Platelets (Bld) [#/Vol] 301 10*3/uL Normal 150-450 [facility] Comment on above: Performed By: #### Angie JAEGER, 01493-3, 46418-6, BMP #### [facility] ([id number]) [address] [place] [address] 15538 RBC COUNT 3.89 X10E12/L Normal 3.80-5.20 [facility] Comment on above: Performed By: #### Angie JAEGER, 72898-9, 59872-0, BMP #### [facility] ([id number]) [address] [place] [address] 02081 WBC (Bld) [#/Vol] 6.0 10*3/uL Normal 4.0-11.0 [facility] Comment on above: Performed By: #### C HEIDE, 67969-7, 84494-0, BMP #### [facility] ([id number]) [address] [place] [address] 76281 Fibrin D-dimer DDU (PPP) [Ma ss/Vol]on 12-03-2024 D DIMER <150 Normal <255 [facility] Comment on above: Result Comment: Results <255 ng/mL DDU: The presence of a VTE can safely be excluded with a negative D-Dimer result and Wells score. A negative result doesn't exclude the possibility of DIC. The test be repeated along with other diagnostic tests if the patient's symptoms persist or worsen. https://www.medialThe Nature Conservancy.com/dv/dl.aspx?[email or web address]&[email or web address] 5&uh=acaea Performed By: #### C HEIDE, 08805-5, 54929-0, BMP #### [facility] ([id number]) [address] [place] [address] 45350 SARS/FLU A+B/RSV by NAAT/Mol ecularon 12-03-2024 SARS/FLU [...] operators who are performing tests using either [employer] or [employer] systems and is limited to laboratories that [...] repeat. Fact Sheet for Healthcare Providers: https://www.fda.gov/ media/343739/downloa d Fact Sheet for Patients: https://www.fda.gov/ media/524826/downloa d Normal [facility] Comment on above: Performed By: #### C OVFLR #### [facility] ([id number]) [address] [place] [address] 68352 Troponin I.cardiac High sens itivity method [Mass/Vol]on 12-03-2024 1 HOUR TROP I, HIGH SENSITIVITY 2 ng/L Normal <16 [facility] Comment on above: Performed By: #### 8 9579-7 #### [facility] ([id number]) [address] [place] [address] 28318 TROPONIN I, HIGH SENSITIVITY 2 ng/L Normal <16 [facility] Comment on above: Performed By: #### C [facility], 63322-6, 65965-0, [facility] #### [facility] ([id number]) [address] [facility] [place] [address] XR CHEST 2 VWSon 12-03-2024 XR CHEST [...] Royal MD on 12/03/2024 7:53 PM Normal [facility] Influenza virus A and B and SARS-CoV-2 (COVID-19) RNA panel - Respiratory system specon 11-22-2024 Influenza virus A and B RNA and SARS-CoV-2 (COVID-19) N gene panel KISHORE+probe (Resp) Influenza virus A and B and SARS-CoV-2 (COVID-19) RNA panel - Respiratory system spec [facility] - Microbiology an d Antimicrobial susceptibilityon 11-22-2024 SARS-CoV-2 (COVID-19) RNA KISHORE+probe Ql (Unsp spec) Negative [facility] No Panel Informationon 11-22 POC Influenza B (KISHORE) Negative [facility] X-ray reportOrdered By: José Manuel Qiu on 11-11-[address] [facility] [address] [address] XRay Report Signed Patient: Dylan Mooney MR#: [id number] : 1975 Acct:[id number] Age/Sex: 49 / F ADM Date: 5 Loc: XDUCLY Room: Type: [facility] Attending Dr: Mikki Mendez APRN Copies to: Mikki Mendez APRN~ Ordering Provider: [...] Maynor Qiu M.D.11/11/2024 4:00 PM Dictation Location: [employer] Transcribed By: [facility] 11/11/24 1600 Dictated By: Maynor Qiu DO 11/11/24 1556 Signed By: 11/11/24 1600 [facility] XR ankle RT min 3V*on 2024 XR ankle RT min 3V* [facility] [place] [address] [place] [address] XRay Report Signed Patient: Dylan Mooney MR#: [id number] : 1975 Acct:[id number] Age/Sex: 49 / F ADM Date: 11/11/24 Loc: XDUCLY Room: Type: [facility] Attending Dr: Mikki Mendez APRN Copies to: Mikki Mendez APRN Ordering Provider: [...] Maynor Qiu M.D.11/11/2024 4:00 PM Dictation Location: [employer] Transcribed By: [facility] 11/11/24 1600 Dictated By: Maynor Qiu DO 11/11/24 1556 Signed By: 11/11/24 1600 Normal [facility] Laboratory - Chemistry and C hemistry - challengeon 08-17-2024 Bilirubin Ql (U) Negative [facility] Glucose (U) [Mass/Vol] Negative [facility] Ketones Ql (U) Negative [facility] pH (U) 5 [pH] [facility] Specific gravity (U) [Rel density] 1.000 [facility] Urobilinogen (U) [Mass/Vol] 0.2 mg/dL [facility] Laboratory - Specimen inform ationon 08-17-2024 Appearance (U) clear [facility] Color (U) raiza [facility] Laboratory - Urinalysison Leukocyte esterase Test strip Ql (U) Negative [facility] Nitrite Ql (U) Negative [facility] Protein Ql (U) Negative [facility] No Panel Informationon 08-17 Urine Occult Blood Negative [facility] Urine Cultureon 08-17-2024 Bacteria identified Cx Nom (U) No Growth 2 Days PERFORMED BY: [place] [address] PATHOLOGIST [employer] MEGGAN VALENTINE M.D. Glade [facility] Comment on above: Performed By: #### C UU #### [address] Urine cultureOrdered By: Aym Good on 08-17-2024 Bacteria identified Cx Nom (U) Urine culture [facility] Laboratory - Chemistry and C hemistry - challengeon 06-10-2024 Bilirubin Ql (U) Negative [facility] Glucose (U) [Mass/Vol] Negative [facility] Ketones Ql (U) Negative [facility] pH (U) 5.0 [pH] [facility] Specific gravity (U) [Rel density] 1.020 [facility] Urobilinogen (U) [Mass/Vol] 0.2 mg/dL [facility] Laboratory - Specimen inform ationon 06-10-2024 Appearance (U) clear [facility] Color (U) darkyellow [facility] Laboratory - Urinalysison Leukocyte esterase Test strip Ql (U) Negative [facility] Nitrite Ql (U) Negative [facility] Protein Ql (U) trace [facility] No Panel Informationon 06-10 Urine Occult Blood Negative [facility] Basophils Auto (Bld) [#/Vol] on 05-31-2024 Basophils (Bld) [#/Vol] 0.1 10 3/uL 0.0-0.1 [facility] Basophils/100 WBC Auto (Bld) on 05-31-2024 Basophils/100 WBC (Bld) 0.7 % 0.2-2.0 [facility] Eosinophils/100 WBC Auto (Bl d)on 05-31-2024 Eosinophils/100 WBC (Bld) 0.9 % 0.9-7.0 [facility] Erythrocyte distribution wid th Auto (RBC) [Ratio]on 05-31-2024 Erythrocyte distribution width (RBC) [Ratio] 14.5 % 11.0-15.0 [facility] Estimated glomerular filtrat ion rate (GFR) non- Americanon 05-31-2024 GFR/1.73 sq M.predicted among non-blacks MDRD (S/P/Bld) [Vol rate/Area] mL/min/{1.73_m2} >=60 [facility] Globulin Calc (S) [Mass/Vol] on 05-31-2024 Globulin (S) [Mass/Vol] 3.8 g/dL [facility] HCG ( test) IA.rapi d Ql (U)on 05-31-2024 HCG ( test) Ql (U) Negative NEGATIVE [facility] Hematocrit Auto (Bld) [Volum e fraction]on 05-31-2024 Hematocrit (Bld) [Volume fraction] 33.5 % Low 36.0-48.0 [facility] Hemoglobin [Mass/volume] in Bloodon 05-31-2024 Hemoglobin (Bld) [Mass/Vol] 10.1 g/dL Low 12.0-16.0 [facility] Laboratory - Chemistry and C hemistry - challengeon 05-31-2024 Albumin [Mass/Vol] 3.5 g/dL 3.4-5.0 [facility] ALP [Catalytic activity/Vol] 80 U/L 46-116 [facility] ALT [Catalytic activity/Vol] 28 U/L 14-59 [facility] AST [Catalytic activity/Vol] 26 U/L 15-37 [facility] Bilirubin [Mass/Vol] 0.8 mg/dL 0.2-1.0 [facility] Calcium [Mass/Vol] 8.5 mg/dL 8.5-10.1 [facility] Chloride [Moles/Vol] 103 mmol/L 98-107 [facility] CO2 [Moles/Vol] 25.0 mmol/L 21.0-32.0 [facility] Creatinine [Mass/Vol] 0.68 mg/dL 0.55-1.02 [facility] GFR/1.73 sq M.predicted MDRD (S/P/Bld) [Vol rate/Area] mL/min/{1.73_m2} >=60 [facility] Glucose [Mass/Vol] 93 mg/dL 74-106 [facility] Lactate [Moles/Vol] 0.6 mmol/L 0.4-2.0 [facility] Lipase [Catalytic activity/Vol] 17.0 U/L 16.0-77.0 [facility] Potassium [Moles/Vol] 4.1 mmol/L 3.5-5.1 [facility] Protein [Mass/Vol] 7.3 g/dL 6.4-8.2 [facility] Sodium [Moles/Vol] 137 mmol/L 136-145 [facility] Urea nitrogen [Mass/Vol] 7.0 mg/dL 7.0-18.0 [facility] Urea nitrogen/Creatinine [Mass ratio] 10.3 mg/mg [facility] Bilirubin Ql (U) Negative NEGATIVE [facility] Glucose (U) [Mass/Vol] Negative NEGATIVE [facility] Ketones Ql (U) Negative NEGATIVE [facility] pH (U) 7.0 [pH] 5.0-9.0 [facility] Specific gravity (U) [Rel density] 1.025 1.005-1.025 [facility] Urobilinogen Qn (U) 2.0 {Estiven'U}/dL Abnormal 0.2-1.0 [facility] Laboratory - Hematology and Cell countson 05-31-2024 Immature granulocytes/100 WBC (Bld) 0.3 % 0.0-0.5 [facility] Laboratory - Specimen inform ationon 05-31-2024 Appearance (U) SL CLOUDY CLEAR [facility] Color (U) LT. YELLOW YELLOW [facility] Laboratory - Urinalysison Leukocyte esterase Test strip Ql (U) SMALL Abnormal NEGATIVE [facility] Mucus Ql (Urine sed) SMALL Abnormal NONE SEEN [facility] Nitrite Ql (U) Positive Abnormal NEGATIVE [facility] Protein Ql (U) 100 mg/dL Abnormal NEG/TRACE [facility] Leukocytes [#/volume] correc jenn for nucleated erythrocytes in Blood by Automated counon 05-31-2024 WBC corrected for nucl RBC Auto (Bld) [#/Vol] 8.6 10 3/uL 4.0-11.0 [facility] Lymphocytes Auto (Bld) [#/Vo l]on 05-31-2024 Lymphocytes (Bld) [#/Vol] 1.0 10 3/uL Low 1.2-3.8 [facility] Lymphocytes/100 WBC Auto (Bl d)on 05-31-2024 Lymphocytes/100 WBC (Bld) 11.5 % Low 20.5-60.0 [facility] MCH Auto (RBC) [Entitic mass ]on 05-31-2024 MCH (RBC) [Entitic mass] 25.1 pg Low 26.7-34.0 [facility] MCHC Auto (RBC) [Mass/Vol]on 05-31-2024 MCHC (RBC) [Mass/Vol] 30.1 g/dL 29.9-35.2 [facility] MCV Auto (RBC) [Entitic vol] on 05-31-2024 MCV (RBC) [Entitic vol] 83.3 fL 81.0-99.0 F [facility] Monocytes Auto (Bld) [#/Vol] on 05-31-2024 Monocytes (Bld) [#/Vol] 0.7 10 3/uL 0.3-0.8 [facility] Monocytes/100 WBC Auto (Bld) on 05-31-2024 Monocytes/100 WBC (Bld) 7.9 % 1.7-12.0 [facility] Neutrophils Auto (Bld) [#/Vo l]on 05-31-2024 Neutrophils (Bld) [#/Vol] 6.8 10 3/uL High 1.4-6.5 [facility] Neutrophils/100 WBC Auto (Bl d)on 05-31-2024 Neutrophils/100 WBC (Bld) 78.7 % High 43.0-75.0 [facility] No Panel Informationon 05-31 Eosinophils # (Auto) 0.1 10 3/uL 0.0-0.7 [facility] Immature Granulocyte # (Auto) 0.03 10 3/uL 0.00-0.03 [facility] Miscellaneous Test Comment See comment [facility] Comment on above: Specimen Source: UCC - Urine,Clean Catch - Urine CC - 200.100 Urine Bacteria MODERATE #/HPF Abnormal NONE SEEN [facility] Urine Culture Reflexed YES [facility] Urine Microscopic Review YES [facility] Urine Occult Blood LARGE Abnormal NEGATIVE [facility] Urine Other Casts NONE SEEN #/LPF NONE SEEN [facility] Urine Other Crystals None Seen #/HPF None Seen [facility] Urine RBC 50-75 #/HPF Abnormal 0-2 [facility] Urine Renal Epithelial Cells FEW #/LPF Abnormal NONE SEEN [facility] Urine Squamous Epithelial Cells FEW #/LPF Abnormal NONE/RARE [facility] Urine WBC >100 #/HPF Abnormal NONE SEEN [facility] Platelet mean volume Auto (B ld) [Entitic vol]on 05-31-2024 Platelet mean volume (Bld) [Entitic vol] 9.9 fL 9.5-13.5 [facility] Platelets Auto (Bld) [#/Vol] on 05-31-2024 Platelets (Bld) [#/Vol] 228 10 3/uL 150-450 [facility] RBC Auto (Bld) [#/Vol]on RBC (Bld) [#/Vol] 4.02 10 6/uL Low 4.20-5.40 [facility] Serum or plasma albumin/glob ulin mass ratioon 05-31-2024 Albumin/Globulin [Mass ratio] 0.9 {ratio} [facility] Serum or plasma anion gap de terminationon 05-31-2024 Anion gap [Moles/Vol] 13.1 mmol/L [facility] Urine culture routineon 05-13 Bacteria identified Cx Nom (U) [facility] MG MAMM SCREEN 3D CHAI CADon 07-22-2022 MG MAMM SCREEN 3D CHAI CAD Patient: DYLAN MOONEY Exam Date: 07/22/2022 : 1975 Gender:F Ordering : DR CONNER GOOD M.D. Admission #: [id number] Family : Order #: [id number] CLICK HERE TO VIEW EXAM RADIOLOGY REPORT PROCEDURE: MAMMOGRAM SCREENING 3D BILATERAL CAD COMPARISON: None. INDICATIONS: Screening mammography Calculator Name NCI Breast Cancer Risk Assessment Tool 5 Year Breast Cancer Risk 0.70% Lifetime Breast Cancer Risk 8.60% Personal Breast Cancer No Personal Ovarian Cancer No Treatments None Family Cancers Father with lung cancer at age 42. LOCATION: [facility] BREAST COMPOSITION: Heterogeneously dense,which may obscure small [...] Roland MD on 07/22/2022 at 09:29 Normal [facility] XR FOOT LT MIN 3 [...] (medial) TMT joints. Electronically authenticated by: MARILU ZHENG Date: 2022-02-04 14:38 Normal [facility] Vital Signs Date Time Vital Sign Value Performing Clinician Facility 04-14-2025 10:41-0400 Body height 167.6 cm Peggy Arteaga FLIGHT AGENT-CNM Work Phone: [facility] 04-14-2025 10:41-0400 Body mass index (BMI) [Ratio] 35.36 kg/m2 Peggy Arteaga FLIGHT AGENT-CNM Work Phone: [facility] 04-14-2025 10:41-0400 Body weight 99.34 kg Peggy Arteaga FLIGHT AGENT-CNM Work Phone: [facility] 04-14-2025 10:41-0400 Diastolic blood pressure 74 mm[Hg] Peggy Arteaga FLIGHT AGENT-CNM Work Phone: [facility] 04-14-2025 10:41-0400 Systolic blood pressure 126 mm[Hg] Peggy Arteaga FLIGHT AGENT-CNM Work Phone: [facility] 04-07-2025 12:00-0400 Diastolic blood pressure 84 mm[Hg] Conner Good MD Work Phone: [facility] 04-07-2025 12:00-0400 Heart rate 70 /min Conner Good MD Work Phone: [facility] 04-07-2025 12:00-0400 Respiratory rate 20 /min Conner Good MD Work Phone: [facility] 04-07-2025 12:00-0400 SaO2% (BldA) [Mass fraction] 100 % Conner Good MD Work Phone: [facility] 04-07-2025 12:00-0400 Systolic blood pressure 103 mm[Hg] Conner Good MD Work Phone: [facility] 04-07-2025 09:52-0400 Body height 170.18 cm Conner Good MD Work Phone: [facility] 04-07-2025 09:52-0400 Body weight 99.79 kg Conner Good MD Work Phone: [facility] 03-15-2025 11:04-0400 Body height 165.1 cm Conner Good MD Work Phone: [facility] 03-15-2025 11:04-0400 Body mass index (BMI) [Ratio] 37.5 kg/m2 Conner Good MD Work Phone: [facility] 03-15-2025 11:040400 Body weight 102.51 kg Conner Good MD Work Phone: [facility] 03-15-2025 11:04-0400 Diastolic blood pressure 71 mm[Hg] Conner Good MD Work Phone: [facility] 03-15-2025 11:04-0400 Heart rate 61 /min Conner Good MD Work Phone: [facility] 03-15-2025 11:04-0400 Systolic blood pressure 116 mm[Hg] Conner Good MD Work Phone: [facility] 02-09-2025 13:40-0400 Diastolic blood pressure 54 mm[Hg] Conner Good MD Work Phone: [facility] 02-09-2025 13:40-0400 Heart rate 75 /min Conner Good MD Work Phone: [facility] 02-09-2025 13:40-0400 Respiratory rate 14 /min Conner Good MD Work Phone: [facility] 02-09-2025 13:40-0400 SaO2% (BldA) [Mass fraction] 94 % Conner Good MD Work Phone: [facility] 02-09-2025 13:40-0400 Systolic blood pressure 120 mm[Hg] Conner Good MD Work Phone: [facility] 02-09-2025 12:40-0400 Body temperature 97 [degF] Conner Good MD Work Phone: [facility] 02-09-2025 12:15-0400 Inhaled oxygen flow rate 8 L/min Conner Good MD Work Phone: [facility] 02-09-2025 09:26-0400 Body height 167.64 cm Conner Good MD Work Phone: [facility] 02-09-2025 09:26-0400 Body weight 102 kg Conner Good MD Work Phone: [facility] 01-13-2025 07:59-0400 Body height 167.64 cm Conner Good MD Work Phone: [facility] 01-13-2025 07:59-0400 Body mass index (BMI) [Ratio] 35.5 kg/m2 Conner Good MD Work Phone: [facility] 01-13-2025 07:59-0400 Body weight 99.79 kg Conner Good MD Work Phone: [facility] 12-03-2024 16:14-0500 Body height 167.64 cm Conner Good MD Work Phone: [facility] 12-03-2024 16:14-0500 Body mass index (BMI) [Ratio] 36 kg/m2 Conner Good MD Work Phone: [facility] 12-03-2024 16:14-0500 Body temperature 98.1 [degF] Conner Good MD Work Phone: [facility] 12-03-2024 16:14-0500 Body weight 101.2 kg Conner Good MD Work Phone: [facility] 12-03-2024 16:14-0500 Diastolic blood pressure 73 mm[Hg] Conner Good MD Work Phone: [facility] 12-03-2024 16:14-0500 Heart rate 70 /min Conner Good MD Work Phone: [facility] 12-03-2024 16:14-0500 Respiratory rate 18 /min Conner Good MD Work Phone: [facility] 12-03-2024 16:14-0500 SaO2% (BldA) [Mass fraction] 99 % Conner Good MD Work Phone: [facility] 12-03-2024 16:14-0500 Systolic blood pressure 120 mm[Hg] Conner Good MD Work Phone: [facility] 11-22-2024 10:37-0500 Body height 167.64 cm Conner Good MD Work Phone: [facility] 11-22-2024 10:37-0500 Body mass index (BMI) [Ratio] 35.2 kg/m2 Conner Good MD Work Phone: [phone] [place] [address] 11-22-2024 10:37-0500 Body temperature 99 [degF] Conner Good MD Work Phone: [facility] 11-22-2024 10:37-0500 Body weight 98.88 kg Conner Good MD Work Phone: [facility] 11-22-2024 10:37-0500 Diastolic blood pressure 72 mm[Hg] Conner Good MD Work Phone: [facility] 11-22-2024 10:37-0500 Heart rate 89 /min Conner Good MD Work Phone: [facility] 11-22-2024 10:37-0500 Respiratory rate 16 /min Conner Good MD Work Phone: [facility] 11-22-2024 10:37-0500 SaO2% (BldA) [Mass fraction] 97 % Conner Good MD Work Phone: [facility] 11-22-2024 10:37-0500 Systolic blood pressure 118 mm[Hg] Conner Good MD Work Phone: [facility] 11-11-2024 15:17-0500 Body height 167.64 cm Conner Good MD Work Phone: [facility] 11-11-2024 15:17-0500 Body mass index (BMI) [Ratio] 36 kg/m2 Conner Good MD Work Phone: [facility] 11-11-2024 15:17-0500 Body temperature 97.5 [degF] Conner Good MD Work Phone: [phone] [place] [address] 11-11-2024 15:17-0500 Body weight 101.2 kg Conner Good MD Work Phone: [phone] [address] 11-11-2024 15:17-0500 Diastolic blood pressure 68 mm[Hg] Conner Good MD Work Phone: [facility] 11-11-2024 15:17-0500 Heart rate 75 /min Conner Good MD Work Phone: [facility] 11-11-2024 15:17-0500 Respiratory rate 19 /min Conner Good MD Work Phone: [facility] 11-11-2024 15:17-0500 SaO2% (BldA) [Mass fraction] 99 % Conner Good MD Work Phone: [facility] 11-11-2024 15:17-0500 Systolic blood pressure 111 mm[Hg] Conner Good MD Work Phone: [facility] 09-13-2024 13:48-0500 Body height 167.64 cm Conner Good MD Work Phone: [facility] 09-13-2024 13:48-0500 Body mass index (BMI) [Ratio] 35.5 kg/m2 Conner Good MD Work Phone: [facility] 09-13-2024 13:48-0500 Body weight 99.79 kg Conner Good MD Work Phone: [facility] 08-17-2024 09:57-0500 Body height 170.18 cm [facility] 08-17-2024 09:57-0500 Body mass index (BMI) [Ratio] 34.6 kg/m2 [facility] 08-17-2024 09:57-0500 Body weight 100.24 kg [facility] 08-17-2024 09:57-0500 Diastolic blood pressure 70 mm[Hg] [facility] 08-17-2024 09:57-0500 Heart rate 73 /min [facility] 08-17-2024 09:57-0500 Systolic blood pressure 109 mm[Hg] [facility] 05-31-2024 10:33-0400 Body height 170.18 cm [facility] 05-31-2024 10:33-0400 Body mass index (BMI) [Ratio] 34.4 kg/m2 [facility] 05-31-2024 10:33-0400 Body temperature 98 [degF] [facility] 05-31-2024 10:33-0400 Body weight 99.79 kg [facility] 05-31-2024 10:33-0400 Diastolic blood pressure 79 mm[Hg] [facility] 05-31-2024 10:33-0400 Heart rate 73 /min [facility] 05-31-2024 10:33-0400 Systolic blood pressure 112 mm[Hg] [facility] 01-15-2024 11:59-0400 Body height 170.18 cm [facility] 01-15-2024 11:59-0400 Body mass index (BMI) [Ratio] 36.6 kg/m2 [facility] 01-15-2024 11:59-0400 Body weight 106.14 kg [facility] 01-15-2024 11:59-0400 Diastolic blood pressure 73 mm[Hg] [facility] 01-15-2024 11:59-0400 Heart rate 66 /min [facility] 01-15-2024 11:59-0400 Systolic blood pressure 110 mm[Hg] [facility] 06-12-2023 15:15-0400 Body height 170.18 cm Conner Good Other [facility] Other 06-12-2023 15:15-0400 Body mass index (BMI) [Ratio] 37.4 kg/m2 Conner Good Other [facility] Other 06-12-2023 15:15-0400 Body weight 108.32 kg Conner Good Other [facility] Other 06-12-2023 15:15-0400 Diastolic blood pressure 66 mm[Hg] Conner Good Other [facility] Other 06-12-2023 15:15-0400 Systolic blood pressure 108 mm[Hg] Conner Good Other [facility] Other Encounters Encounter Date Encounter Type Care Provider Facility Start: 04-18-2025 End: 04-18-2025 Orders Only Peggy Arteaga APRN-YESSICA Work Phone: [facility] Comment on above: Low libido (Primary Dx); Hot flashes; Perimenopausal Start: 04-14-2025 End: 04-14-2025 Initial preventive medicine new patient 40-64yrs Peggy Arteaga APRN-CNAleks Work Phone: [facility] Comment on above: Well woman exam with routine gynecological exam (Primary Dx); Abnormal uterine bleeding (AUB); Perimenopausal; Pap smear for cervical cancer screening; Vaginal discharge; Hot flashes; Chronic nonintractable headache, unspecified headache type Start: 04-14-2025 End: 04-14-2025 Patient encounter procedure Peggy Arteaga APRN-CNAleks [facility] Work Phone: Start: 04-14-2025 End: 04-14-[address] [facility] Start: 04-13-2025 ambulatory Zach Celaya Facility :[facility] Start: 04-07-2025 End: 04-07-2025 ambulatory Celine L Ly Facility:[facility] Start: 04-07-2025 Non-patient / Non-visit Celine L Ly DO -[facility] Work Phone: Start: 04-06-2025 Registered Recurring Zach Luís Celaya DO -Physical Therapy [facility] [place] Start: 04-05-2025 End: 04-05-2025 Patient encounter procedure Zach Luís Celaya DO -[facility] Work Phone: Start: 04-02-2025 Non-patient / Non-visit Conner ro MD -[facility] Work Phone: Start: 03-15-2025 Physical examination Conner loera MD Work Phone: [facility] Start: 03-15-2025 End: 03-15-2025 ambulatory Conner Good MD Work Phone: [facility] Work Phone: Start: 03-15-2025 End: 03-15-2025 Encounter for general adult medical examination without abnormal findings Conner Good MD Work Phone: [facility] Start: 03-15-2025 End: 03-15-2025 Patient encounter procedure Conner Good MD Work Phone: [facility] Work Phone: Start: 03-15-2025 End: 03-15-2025 Patient encounter status Conner Good MD [facility] Start: 03-11-2025 Registered Recurring Conner loera MD Work Phone: [facility]-Physical Therapy [facility] [place] Start: 02-22-2025 End: 02-22-2025 ambulatory Conner Good MD Work Phone: [facility] Work Phone: Start: 02-22-2025 End: 02-22-2025 Patient encounter procedure Conner Good MD Work Phone: [facility] Work Phone: Start: 02-11-2025 Registered Recurring Conner loera MD Work Phone: [facility]-Physical Therapy [facility] [place] Start: 02-09-2025 Non-patient / Non-visit Conner Good MD Work Phone: [facility] Work Phone: Start: 02-09-2025 End: 02-09-2025 Admission to same day surgery center Conner Good MD Work Phone: [facility]-Surgery Center [facility] [place] Start: 02-09-2025 End: 02-09-2025 ambulatory Conner Good MD Work Phone: [facility] Work Phone: Start: 01-26-2025 End: 01-26-2025 Patient encounter procedure Conner Good MD Work Phone: [facility]-Pre-Surgical Testing Work Phone: Start: 01-26-2025 End: 01-26-2025 ambulatory Conner Good MD Work Phone: [facility] Work Phone: Start: 01-26-2025 Encounter for preprocedural laboratory examination Zach Celaya [facility] Start: 01-13-2025 End: 01-13-2025 ambulatory Conner Good MD Work Phone: [facility] Work Phone: Start: 01-13-2025 End: 01-13-2025 Patient encounter procedure Conner Good MD Work Phone: [facility] Work Phone: Start: 01-10-2025 End: 01-10-2025 Patient encounter procedure Conner Good MD Work Phone: [facility]-MRI [address] [facility] Work Phone: Start: 01-10-2025 End: 01-10-2025 ambulatory Conner Good MD Work Phone: [facility] Work Phone: Start: 12-06-2024 Non-patient / Non-visit Conner Good MD Work Phone: [facility] Work Phone: Start: 12-03-2024 End: 12-03-2024 Emergency department patient visit CONNER GOOD [facility] Start: 12-03-2024 End: 12-03-2024 ambulatory Conner Good MD Work Phone: [facility] Work Phone: Start: 12-03-2024 End: 12-03-2024 Patient encounter procedure Conner Good MD Work Phone: [facility] [place] Work Phone: Start: 12-02-2024 End: 12-02-2024 ambulatory Conner Good MD Work Phone: [facility] Work Phone: Start: 12-02-2024 End: 12-02-2024 Patient encounter procedure Conner Good MD Work Phone: [facility] Work Phone: Start: 11-22-2024 End: 11-22-2024 ambulatory Conner Good MD Work Phone: [facility] Work Phone: Start: 11-22-2024 End: 11-22-2024 Patient encounter procedure Conner Good MD Work Phone: [facility] [place] Work Phone: Start: 11-11-2024 End: 11-11-2024 ambulatory Conner Good MD Work Phone: [facility] Work Phone: Start: 11-11-2024 End: 11-11-2024 Patient encounter procedure Conner Good MD Work Phone: [facility] [place] Work Phone: Start: 11-11-2024 End: 11-11-2024 ambulatory IVETH CHANDLER Not Available Start: 11-09-2024 End: 11-09-2024 ambulatory Iveth Guevaray IT COMMUNICATIONS MANAGER [facility] Comment on above: Acute pain of left s houlder (Primary Dx); Cervical paraspinal muscle spasm Start: 11-05-2024 End: 11-05-2024 Bamboo flowsheet Iveth Mannybley IT COMMUNICATIONS MANAGER [facility] Start: 11-05-2024 End: 11-05-2024 Bamboo flowsheet Iveth Mannybley IT COMMUNICATIONS MANAGER [facility] Start: 11-05-2024 End: 11-05-2024 ambulatory Ivethgil Bryantbley IT COMMUNICATIONS MANAGER [facility] Comment on above: Acute pain of left s houlder (Primary Dx); Cervical paraspinal muscle spasm Start: 11-02-2024 End: 11-02-2024 Bamboo flowsheet Bakari Brink IT COMMUNICATIONS MANAGER [facility] Start: 11-02-2024 End: 11-02-2024 Bamboo flowsheet Bakari Brink IT COMMUNICATIONS MANAGER [facility] Start: 11-02-2024 End: 11-02-2024 ambulatory Bakari Brink IT COMMUNICATIONS MANAGER [facility] Comment on above: Acute pain of left s houlder (Primary Dx); Cervical paraspinal muscle spasm Start: 10-28-2024 End: 10-28-2024 ambulatory Iveth Mannybley IT COMMUNICATIONS MANAGER [facility] Comment on above: Acute pain of left s houlder (Primary Dx); Cervical paraspinal muscle spasm Start: 10-26-2024 End: 10-26-2024 Bamboo flowsheet Iveth Kelbley IT COMMUNICATIONS MANAGER [facility] Start: 10-26-2024 End: 10-26-2024 Bamboo flowsheet Iveth Kelbley IT COMMUNICATIONS MANAGER [facility] Start: 10-26-2024 End: 10-26-2024 ambulatory Iveth Kelbley IT COMMUNICATIONS MANAGER [facility] Comment on above: Acute pain of left s houlder (Primary Dx); Cervical paraspinal muscle spasm Start: 10-21-2024 End: 10-21-2024 Bamboo flowsheet Iveth Mannybley IT COMMUNICATIONS MANAGER [facility] Start: 10-21-2024 End: 10-21-2024 Bamboo flowsheet Iveth Mannybley IT COMMUNICATIONS MANAGER [facility] Start: 10-21-2024 End: 10-21-2024 ambulatory Iveth Bryantbley IT COMMUNICATIONS MANAGER [facility] Comment on above: Acute pain of left s houlder (Primary Dx); Cervical paraspinal muscle spasm Start: 10-14-2024 End: 10-14-2024 Bamboo flowsheet Iveth Mannybley IT COMMUNICATIONS MANAGER [facility] Start: 10-14-2024 End: 10-14-2024 Bamboo flowsheet Ivethgil Bryantbley IT COMMUNICATIONS MANAGER [facility] Start: 10-14-2024 End: 10-14-2024 ambulatory IVETH GUEVARAY Not Available Start: 10-11-2024 End: 10-11-2024 ambulatory Bebe Huston PT Work Phone: [facility] Comment on above: Acute pain of left s houlder (Primary Dx); Cervical paraspinal muscle spasm Start: 10-11-2024 End: 10-11-2024 Bamboo flowsheet Bebe Lauren Robel PT Work Phone: [facility] Start: 10-11-2024 End: 10-11-2024 Bamboo flowsheet Bebe T Edithcherry PT Work Phone: [facility] Start: 10-04-2024 End: 10-04-2024 Telephone encounter Bakari Roldan IT COMMUNICATIONS MANAGER [facility] Comment on above: re: PT today Start: 10-01-2024 End: 10-01-2024 Bamboo flowsheet Iveth Kelbley IT COMMUNICATIONS MANAGER [facility] Start: 10-01-2024 End: 10-01-2024 Bamboo flowsheet Iveth Kelbley IT COMMUNICATIONS MANAGER [facility] Start: 10-01-2024 End: 10-01-2024 ambulatory Iveth Bryantbley IT COMMUNICATIONS MANAGER [facility] Comment on above: Acute [...] on above: Acute pain of left s sara (Primary Dx); Cervical paraspinal muscle spasm Start: 09-13-2024 End: 09-13-2024 Patient encounter procedure Conner Good MD Work Phone: [facility] Work Phone: Start: 08-17-2024 End: 08-17-2024 Departed Referred MD Conner Good Work Phone: [facility] [place] Work Phone: Start: 08-17-2024 End: 08-17-2024 ambulatory Conner Good [facility] Work Phone: Start: 08-17-2024 End: 08-17-2024 Patient encounter procedure [facility] Work Phone: Start: 06-10-2024 End: 06-10-2024 ambulatory [facility] Work Phone: Start: 06-10-2024 End: 06-10-2024 Patient encounter procedure [facility] Work Phone: Start: 05-31-2024 End: 05-31-2024 ambulatory [facility] Work Phone: Start: 05-31-2024 End: 05-31-2024 Patient encounter procedure [facility] Work Phone: Start: 01-15-2024 End: 01-15-2024 ambulatory [facility] Work Phone: Start: 01-15-2024 End: 01-15-2024 Patient encounter procedure [facility] Work Phone: Start: 12-22-2023 Non-patient / Non-visit [facility] Work Phone: Start: 12-11-2023 Non-patient / Non-visit [facility] Work Phone: Start: 11-14-2023 End: 11-14-2023 ambulatory Conner Good Other [facility] Other Start: 11-14-2023 Office outpatient vi sit 15 minutes Conner Good [facility] Start: 11-04-2023 End: 11-04-2023 ambulatory Conner Good Other [facility] Other Start: 11-04-2023 Telephone encounter Conner Florentino [facility] Start: 10-14-2023 End: 10-14-2023 ambulatory Conner Florentino Other [facility] Other Start: 10-14-2023 Telephone encounter Conner Florentino [facility] Start: 10-10-2023 End: 10-10-2023 ambulatory Conner Florentino Other [facility] Other Start: 10-10-2023 Telephone encounter Conner Florentino [facility] Start: 10-07-2023 End: 10-07-2023 ambulatory Conner Florentino Other [facility] Other Start: 10-07-2023 Telephone encounter Conner Good [facility] Start: 09-12-2023 End: 09-12-2023 ambulatory Conner Florentino Other [facility] Other Start: 09-12-2023 Telephone encounter Conner Florentino [facility] Start: 08-08-2023 End: 08-08-2023 ambulatory Conner Good Other [facility] Other Start: 08-08-2023 Telephone encounter Conner Good [facility] Start: 08-05-2023 End: 08-05-2023 ambulatory Conner Good Other [facility] Other Start: 08-05-2023 Telephone encounter Conner Good [facility] Start: 07-24-2023 End: 07-24-2023 ambulatory Conner Good Other [facility] Other Start: 07-24-2023 Telephone encounter Conner Good [facility] Start: 07-08-2023 End: 07-08-2023 ambulatory Conner Good Other [facility] Other Start: 07-08-2023 Telephone encounter Conner Good [facility] Start: 06-13-2023 End: 06-13-2023 ambulatory Conner Good Other [facility] Other Start: 06-13-2023 Telephone encounter Conner Good [facility] Start: 06-12-2023 End: 06-12-2023 ambulatory Conner Good Other [facility] Other Start: 06-12-2023 Office outpatient vi sit 15 minutes Conner Florentino [facility] Start: 06-12-2023 Telephone encounter Conner Good [facility] Start: 06-05-2023 End: 06-05-2023 ambulatory Conner Good Other [facility] Other Start: 06-05-2023 Telephone encounter Conner Good [facility] Start: 04-23-2023 End: 04-23-2023 ambulatory Conner Good Other [facility] Other Start: 04-23-2023 Telephone encounter Conner Good [facility] Start: 02-07-2023 End: 02-07-2023 ambulatory Conner Good Other [facility] Other Start: 02-07-2023 Telephone encounter Conner Good [facility] Start: 02-04-2023 End: 02-04-2023 ambulatory Conner Good Other [facility] Other Start: 02-04-2023 Telephone encounter Conner Good [facility] Start: 01-28-2023 End: 01-28-2023 ambulatory Conner Good Other [facility] Other Start: 01-28-2023 Telephone encounter Conner Good [facility] Start: 01-24-2023 End: 01-24-2023 ambulatory Conner Good Other [facility] Other Start: 01-24-2023 Telephone encounter Conner Good [facility] Start: 01-23-2023 End: 01-23-2023 ambulatory Conner Good Other [facility] Other Start: 01-23-2023 Telephone encounter Conner Good [facility] Start: 12-12-2022 End: 12-12-2022 ambulatory Conner Good Other [facility] Other Start: 12-12-2022 Telephone encounter Conner Good [facility] Start: 12-03-2022 End: 12-03-2022 ambulatory Conner Good Other [facility] Other Start: 12-03-2022 Telephone encounter Conner Good [facility] Start: 11-08-2022 (Televisit) Televisit Conner Good Tushar [facility] Start: 11-08-2022 End: 11-08-2022 ambulatory Conner Good Other [facility] Other Start: 07-22-2022 End: 07-23-[address] CONNER GOOD Facility:[facility] Start: 06-21-2022 End: 06-21-2022 ambulatory Sunday Bartholomew Other [facility] Other Start: 06-21-2022 Telephone encounter Sunday [facility] Start: 05-14-2022 End: 05-14-2022 ambulatory Sunday Puma Other [facility] Other Start: 05-14-2022 Telephone encounter Sunday P[facility] Start: 05-06-2022 End: 05-06-2022 ambulatory Sunday Puma Other [facility] Other Start: 05-06-2022 Telephone encounter Sunday Puma [facility] Start: 02-04-2022 End: 02-04-[address] CONNER GOOD Facility:[facility] Procedures Date Procedure Procedure Detail Performing Clinician Start: 04-14-2025 Microscopic observat ion [Identifier] in Cervix by Cyto stain Peggy Arteaga FLIGHT AGENT-CNM Work Phone: Start: 02-09-2025 OR Shoulder Scope RCR/Biceps Tendon (Left) Conner Good MD Work Phone: Start: 01-10-2025 MRI of left shoulder Sebas Good MD Work Phone: Start: 11-11-2024 X-ray of right ankle Sebas Good MD Work Phone: Start: 08-17-2024 Urine culture Conner loera MD Work Phone: Screening for malign ant neoplasm of breast Conner Good Other Plan of Treatment Date Care Activity Detail Author Start: 05-31-2029 DTaP,Tdap and Td Vaccines (2 - Td or Tdap) DTaP,Tdap and Td Vaccines (2 - Td or Tdap) [facility] Start: 04-14-2028 Screening for malign ant neoplasm of cervix Pap Smear [facility] Start: 04-14-2026 Adult BMI Follow Up Plan Adult BMI F ollow Up Plan [facility] Start: 04-14-2026 Adult BMI Screening Adult BMI Screen ing [facility] Start: 04-14-2026 Tobacco Screening Tobacco Screening [facility] Start: 07-18-2025 End: 07-18-2025 Patient encounter procedure 07/18/2025 9:45 AM EDT Office Visit [facility] [address] [place] [address] Pegyg Arteaga, FLIGHT AGENT-CNM [address] [place] [address] [facility] Start: 06-13-2025 Influenza vaccination Influenza Vacc ine [facility] Start: 04-14-2025 End: 04-14-2026 US Pelvis transabdominal and transvaginal Ultrasound pelvic with transvaginal Imaging Routine Abnormal uterine bleeding (AUB) Perimenopausal Expected: 04/14/2025, Expires: 04/14/2026 [facility] Work Phone: Comment on above: Expected: 04/14/2025 , Expires: 04/14/2026 Start: 04-07-2025 [facility] Start: 03-15-2025 Patient referral [facility] Work Phone: Start: 02-09-2025 End: 02-09-2025 [facility] Start: 11-09-2024 End: 11-09-2024 ambulatory 11/09/2024 10:00 AM EST Treatment [facility] [address] [facility] [address] [place] [id number] Iveth Chandler, IT COMMUNICATIONS MANAGER [facility] Start: 11-05-2024 End: 11-05-2024 ambulatory 11/05/2024 10:00 AM EST Treatment [facility] [address] [place] [id number] Iveth Chandler, IT COMMUNICATIONS MANAGER [facility] Start: 11-02-2024 End: 11-02-2024 ambulatory 11/02/2024 10:30 AM EST Treatment [facility] [address] [place] [address] Janine Chandlerissa, IT COMMUNICATIONS MANAGER [facility] Start: 10-28-2024 End: 10-28-2024 ambulatory 10/28/2024 10:00 AM EST Treatment [facility] [address] [place] [address] Janine Chandlerissa, IT COMMUNICATIONS MANAGER [facility] Start: 10-26-2024 End: 10-26-2024 ambulatory 10/26/2024 10:00 AM EST Treatment [facility] [address] [place] [address] Janine Chandlerissa, IT COMMUNICATIONS MANAGER [facility] Start: 10-21-2024 End: 10-21-2024 ambulatory 10/21/2024 10:00 AM EST Treatment [facility] [address] [place] [address] Janine Chandlerissa, IT COMMUNICATIONS MANAGER [facility] Start: 10-19-2024 End: 10-19-2024 ambulatory 10/19/2024 10:00 AM EST Treatment [facility] [address] [place] [address] Janine Chandlerissa, IT COMMUNICATIONS MANAGER [facility] Start: 10-14-2024 End: 10-14-2024 ambulatory [facility] Comment on above: Acute pain of left s houlder (Primary Dx); Cervical paraspinal muscle spasm Start: 10-11-2024 End: 10-11-2024 ambulatory [facility] Comment on above: Arrived Start: 10-07-2024 End: 10-07-2024 ambulatory 10/07/2024 3:30 PM EST Treatment [facility] [address] [place] [address] Bakari Roldan, IT COMMUNICATIONS MANAGER [facility] Start: 10-04-2024 End: 10-04-2024 ambulatory 10/04/2024 4:00 PM EST Treatment [facility] [address] [place] [address] Bakari Roldan, ALFIE [facility] Start: 10-01-2024 End: 10-01-2024 ambulatory [facility] Comment on above: Arrived Start: 09-29-2024 End: 09-29-2024 ambulatory 09/29/2024 8:00 AM EST Evaluation [facility] [address] [place] [address] Robel Bebe T, PT [address] [place] [address] Arrived [facility] Comment on above: Arrived Start: 08-17-2024 Bacteria identified in Urine by Culture Urine Culture [facility] Start: 08-17-2024 End: 08-17-2024 Urine culture [facility] Start: 06-13-2024 COVID-19 Vaccine ( season) COVID-19 Vaccine ( season) [facility] Start: 06-13-2024 Influenza vaccination Influenza Vacc ine (#1) [facility] Start: 2017 Screening for malign ant neoplasm of breast Mammogram [facility] Start: 2007 Screening for malign ant neoplasm of cervix [facility] Start: 1998 Screening for malign ant neoplasm of cervix Pap Smear [facility] Start: 1995 Adult BMI Follow Up Plan Adult BMI F ollow Up Plan [facility] Start: 1989 Depression Screening Depression Scre [facility] Start: 1977 Screening for malign ant neoplasm of colon [facility] MG Breast - bilatera l Screening [facility] MR Shoulder - left W O contrast [facility] Patient Education [facility] Work Phone: Patient referral [facility] Work Phone: Thin Prep Pap Test Thin Prep Pap Test Pathology and Cytology Routine Vaginal discharge 04/14/2025 11:41 AM EDT [facility] Vaginitis Panel PCR Vaginitis Pa bob PCR Microbiology Routine Pap smear for cervical cancer screening 04/14/2025 11:41 AM EDT [facility] XR Ankle - right GE 3 Views [facility] XR Cervical spine 5 Views [facility] XR Shoulder - left Views [facility] Immunizations Immunization Date Immunization Notes Care Provider Fa cility 09-01-2021 COVID-19 mRNA, Comirnaty (Pfizer) Conner Good MD Work Phone: [facility] 08-11-2021 COVID-19 mRNA, Comirnaty (Pfizer) Conner Good MD Work Phone: [facility] Payers Date Payer Category Payer Self-pay [id number] 2017 [employer] Blue [employer] [id number] 2017 [employer] Blue [employer] Managed Care - Other [id number] 1977 Unknown [id number] 2.16840.1.796116.3.579.2.593 1977 Unknown [id number] 2.16840.1.902653.3.579.2.593 1977 Unknown [id number] 2.16.840.1.860263.3.579.2.9 1977 Unknown [id number] 2.16.840.1.979956.3.579.2.9 1977 Unknown [id number] 2.16.840.1.990135.3.579.2.9 1977 Unknown [id number] 2.16.840.1.607687.3.579.2.9 1977 Unknown [id number] 2.16.840.1.632389.3.579.2.1259 1977 Unknown [id number] 2.16.840.1.601358.3.579.2.1259 1977 Unknown [id number] 2.16.840.1.970679.3.579.2.1259 1977 Unknown [id number] 2.16.840.1.019429.3.579.2.9 1977 Unknown [id number] 2.16.840.1.520477.3.579.2.1259 1977 Unknown [id number] 2.16.840.1.992742.3.579.2.9 1977 Unknown [id number] 2.16.840.1.203267.3.579.2.1286 1977 Unknown [id number] 2.16.840.1.341191.3.579.2.1286 1957 [place] [id number] 2.16.840.1.747158.19 Unknown [id number] 2.16.840.1.962419.3.579.2.531 Unknown [id number] 2.16.840.1.476043.3.579.2.531 Unknown [id number] 2.16.840.1.724742.3.579.2.531 Unknown [id number] 2.16840.1.796681.3.579.2.531 Social History Date Type Detail Facility Start: 12-03-2024 End: 04-14-2025 Sex Assigned At [facility] Start: 06-12-2023 End: 06-12-2023 Tobacco smoking status WAIS Never smoked tobacco (finding) [facility] Start: 1975 Sex Assigned At Female [facility] Tobacco smoking status [facility] Tobacco smoking consumption unknown [facility] Start: 1975 Sex assigned at Not on file [facility] Start: 05-18-2015 End: 11-11-2024 Sex Female (finding) [facility] Start: 02-18-2021 End: 11-22-2024 Tobacco smoking status NHIS Ex-smoker (finding) [facility] History of tobacco use Current smoker [facility] Start: 02-18-2021 Tobacco use and exposure Smokeless tobacco non-user [facility] Start: 04-14-2025 Alcoholic beverage intake Current drinker of alcohol (finding) [facility] Start: 12-03-2024 End: 04-14-2025 History of Social function [facility] NEGATED: Highlighted row [facility] NEGATED: Highlighted row N [facility] Medical Equipment Procedure Code Equipment Code Equipment Origin al Text Equipment Identifier Dates Tendon/ligament bone anchor, non-bioabsorbable [id number] FDA Start: 02-09-2025 Tendon/ligament bone anchor, non-bioabsorbable ()[id number] FDA Start: 02-09-2025 Tendon/ligament bone anchor, bioabsorbable ()[id number] FDA Start: 02-09-2025 Tendon/ligament bone anchor, bioabsorbable ()[id number] FDA Start: 02-09-2025 Tendon/ligament bone anchor, bioabsorbable ()[id number] FDA Start: 02-09-2025 Goals Date Patient Goal Desired Activity /State Clinical Notes 05-06-2022 to 04-18-2025 Telephone Encounter - YENIFER Galvan - 04/18/2025 3:21 PM EDTTelephone Encounter - YENIFER Galvan - 04/18/2025 3:21 PM EDYENIFER Davis - 04/18/2025 3:14 PM EDT Note Date & Type Note Facility 04-18-2025 Miscellaneous Notes Formattin g of this note might be different from the original. Mychart education sent on timeplazzaace cream and oral Veozah. - YENIFER GALVAN 04/18/25 3:22 PM documented in this encounter [facility] 04-18-2025 Telephone encount er Note Mychart education sent on Estrace cream and oral Veozah. - YENIFER GALVAN 04/18/25 3:22 PM [facility] 04-18-2025 History of Presen t illness Narrative Patient requesting change of medication due to [...] Dispense: 30 tablet Refill: 4 - YENIFER GALVAN 04/18/25 3:20 PM YENIFER Galvan 04/18/25 1521 documented in this encounter [facility] 04-14-2025 History of Presen t illness Narrative Subjective Dylan Mooney is a 50 y.o. female presenting [...] over the last several weeks have been daily, she awakes with them. Current contraception: none History of abnormal Pap smear: no; last pap about 20yrs ago Family history of breast, uterine ,ovarian, colon, pancreatic or prostate cancer: yes - Breast Ca- mother Regular self breast exam: yes History of abnormal mammogram: no; scheduled for next week. Last year was done Neg Hx Colonoscopy/Cologuard test: last week at [facility] Neg HX Gardasil Patient reports that they are safe at home and have no mental health concerns at today's visit. Menstrual History: OB History No obstetric history on file. Patient's last menstrual period was 12/05/2024 (exact date). The following portions of the patient's history were reviewed and updated as appropriate: allergies, current medications, past family history, past medical history, past social history, past surgical history, problem list, and medication reconciliation was completed including current medication and post discharge medication. Review of Systems Review of [...] lb) LMP 12/05/2024 (Exact Date) BMI 35.36 kg/m General: alert, appears stated age, cooperative, no distress, and mildly obese social drinkerFormer SmokerPatient does not use prescription narcotics or illegal drugs. Thyroidnormal to inspection and palpation Heart: regular rate and rhythm, S1, S2 normal, no murmur, click, rub or gallop Breast Bilateral breasts without nodularity, bilateral nipples everted, bilateral axilla without nodularity. Breast there were some mild fibrocystic changes in the outer portion Lungs: clear to auscultation bilaterally Abdomen: soft, non-tender, without masses or organomegaly and Negative CVAT Vulva: normal, Bartholin's, Urethra, Stanton's normal Vagina: normal mucosa, normal discharge, grade [...] and progesterone. She is aware of increased risk for blood clot, heart attack, stroke, liver and [...] year (around 04/14/2026) for Annual physical. Education ASSCCP Guidelines for PAP and HPV testing. Risks of clot, [place], stroke, cancer, liver disease with control use; info sheet given. Annual yearly recommended with pap and HPV per ASCCP guidelines. Recommendations reviewed for BMI management, goal 19-24 encouraged. Calcium intake 1514-0988 mg po with 800 units vitamin D daily by age and weight bearing exercise for bone health reviewed. Condom use, STD testing discussed Breast care and assessment discussed, mammogram yearly starting at age 40 unless risk factors indicate earlier testing. Colorectal screening at age 45 for low risk patients. - YENIFER GALVAN 04/14/25 12:12 PM - ELENA Guillen 04/14/25 12:02 PM YENIFER Galvan 04/14/25 1215 documented in this encounter [facility] 01-13-2025 Evaluation note Diagnosis Onset Date Resolution Bicipital tendinitis, left shoulder acute January 13, 2025 7:53am Degenerative disc disease, cervical acute January 13, 2025 7:53am Left rotator cuff tear acute Ap ril 2024 7:53am Pain in left acromioclavicular joint [...] acute Ma 2024 2:41pm Pain in left acromioclavicular joint acute February 2:41pm Rotator cuff impingement syndrome of left shoulder acute February 222024 2:41pm Rotator cuff syndrome of left shoulder acute February 22, 2025 2:41pm Status post arthroscopy of left shoulder acute February 22, 2025 2:41pm Anemia acute March 15, 2025 10:58am Well adult exam acute March 15, 2025 10:58am [facility] Work Phone: 1(514) 982-366804-03-2025 Evaluation note* Diagnosis Onset Date Resolution Status Admit Date Bicipital tendinitis, left shoulder acute January 13, 2025 7:53am Degenerative disc disease, cervical acute January 13, 2025 7:53am Left rotator cuff tear acute Ap ril 2024 7:53am Pain in left acromioclavicul ar [...] 2:41pm Left rotator cuff tear acute Ma y 2024 2:41pm Pain in left acromioclavicul ar joint acute February 22, 2025 2 :41pm Rotator cuff impingement syn drome of left shoulder acute February 22, 2025 2:41pm Rotator cuff syndrome of lef t shoulder acute February 22, 2025 2 :41pm Status post arthroscopy of l eft shoulder acute February 22, 2025 2 :41pm Anemia acute March 15, 2025 10:58am Colon cancer screening acute 2024 10:58am Family history of colon cancer acute March 15, 2025 10:58am Screening mammogram for [facility] cancer acute March 15, 2025 1 0:58am Well adult exam acute March 15, 2025 10:58am Bicipital tendinitis, left shoulder acute April 05, 2025 10:23am Degenerative disc disease, cervical acute April 05, 2025 10:23am Left rotator cuff tear acute [facility] 2024 10:23am Pain in left acromioclavicul ar joint acute April 05, 2025 10:23am Rotator cuff impingement syn drome of left shoulder acute April 05, 2025 10:23am Rotator cuff syndrome of lef t shoulder acute April 05, 2025 10:23am Status post arthroscopy of l eft shoulder acute April 05, 2025 10:23am [facility] Work Phone: 1(917) 563-571702-20-2025 Evaluation note* Diagnosis Onset Date Resolution Status [...] 2:41pm Left rotator cuff tear acute Ma y 2024 2:41pm Pain in left acromioclavicul ar joint acute February 22, 2025 2 :41pm Rotator cuff impingement syn drome of left shoulder acute February 22, 2025 2:41pm Rotator cuff syndrome of lef t shoulder acute February 22, 2025 2 :41pm Status post arthroscopy of l eft shoulder acute February 22, 2025 2 :41pm [facility] Work Phone: 1(960) 733-234401-30-2025 Evaluation note* Diagnosis Onset Date Resolution Status Admit Date Right ankle injury noneactive 2024 3:09pm Influenza A acute November 9:47am Degenerative disc disease, cervical acute December 02, 2 025 9:00am Rotator cuff syndrome of left shoulder acute December 02, 2 025 9:00am Chest pain acute December 03, 2024 3:59pm [facility] Work Phone: 1(365) 366-293401-30-2025 Evaluation note* Diagnosis Onset Date Resolution Status Admit Date Right ankle injury noneactive 2024 3:09pm Influenza A acute November 9:47am Degenerative disc disease, cervical acute December 02, 2 025 9:00am Rotator cuff syndrome of left shoulder acute December 02, 2 025 9:00am Chest pain acute December 03, 2024 3:59pm Degenerative disc disease, cervical acute January 13, 2025 7:53am Rotator cuff syndrome of left shoulder acute January 13, 2025 7:53am [facility] Work Phone: 1(528) 983-518101-30-2025 Evaluation note* Diagnosis Onset Date Resolution Status Admit Date Right ankle injury noneactive Fernandouar y 2024 3:09pm Influenza A acute November 9:47am Degenerative disc disease, cervical acute December 02, 2 025 9:00am Rotator cuff syndrome of lef t shoulder acute December 02, 025 9:00am Chest pain acute December 03, [...] t shoulder acute January 13, 2025 7:53am [facility] Work Phone: 1(794) 248-336612-30-2024 History of Present illness Narrative* Bebe Huston, [...] to be instructed in home exercise program. Correction Goals: To be met in 10 weeks [...] Please sign below. Date: documented in this [facility]12-23-2024 Telephone encounter Note* Telephone Encounter - Yazmin Fagan - 10/04/2024 2:51 PM EST She called noting she was contacted by daughter who was heading home sick from work; she was going to pick-up granddaughter. She said she'll be here 10/07 @ 3:30. [facility] [id number] Miscellaneous Notes* Telephone Encounter - Yazmin Fagan - 10/04/2024 2:51 PM EST She called noting she was contacted by daughter who was heading home sick from work; she was going to pick-up granddaughter. She said she'll be here 10/07 @ 3:30. documented in this [facility]12-18-2024 History of Present illness Narrative* Bebe [...] to be instructed in home exercise program. 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 Date: [facility]* Diagnosis Onset Date Resolution Status Admit Date Degenerative disc disease, cervical acute September 13 1:34pm Rotator cuff syndrome of left shoulder acute September 13 1:34pm Right ankle injury noneactive 2024 3:09pm [facility] Work Phone: 1(527) 787-986212-02-2024 Evaluation note* Diagnosis Onset Date Resolution Status Admit Date Degenerative disc disease, cervical acute September 13 1:34pm Rotator cuff syndrome of left shoulder acute September 13 1:34pm Right ankle injury noneactive 2024 3:09pm Influenza A acute November 9:47am Degenerative disc disease, cervical acute December 02, 025 9:00am Rotator cuff syndrome of left shoulder acute December 02 025 9:00am [facility] Work Phone: 1(880) 600-762911-05-2024 Evaluation note* Diagnosis Onset Date Resolution Status Admit Date Anxiety and depression acute No vember 2023 9:53am Cervical radicular pain acute N ov2023 9:53am Dysuria acute August 17, 2024 9:53am Degenerative disc disease, cervical acute September 13 1:34pm Rotator cuff syndrome of left shoulder acute September 13 1:34pm Right ankle injury noneactive Ruchi y 2024 3:09pm [facility] Work Phone: 1(433) 199-707602-02-2024 Evaluation note* Encounter Date Diagnosis Assessment Notes Treatment Notes Treatment Clinical Notes Nov, Acute COVID-19 (ICD-10 - U07.1) Discussed quarantine protocol and symptom management. Pt agrees to paxlovid. Rx sent to pharmacy. [facility] Other 01-02-2024 Evaluation note* Encounter Date Diagnosis Assessment Notes Treatment Notes Treatment Clinical Notes Oct, Major depressive disorder, recurrent, moderate (ICD-10 - F33.1) [facility] Other 12-29-2023 Evaluation note* Encounter Date Diagnosis Assessment Notes Treatment Notes Treatment Clinical Notes Sep, Major depressive disorder, recurrent, moderate (ICD-10 - F33.1) [facility] Other 12-26-2023 Evaluation note* Encounter Date Diagnosis Assessment Notes Treatment Notes Treatment Clinical Notes Sep, Major depressive disorder, recurrent, moderate (ICD-10 - F33.1) [facility] Other 12-01-2023 Evaluation note* Encounter Date Diagnosis Assessment Notes Treatment Notes Treatment Clinical Notes Sep, Major depressive disorder, recurrent, moderate (ICD-10 - F33.1) [facility] Other 10-27-2023 Evaluation note* Encounter Date Diagnosis Assessment Notes Treatment Notes Treatment Clinical Notes Jul, Major depressive disorder, recurrent, moderate (ICD-10 - F33.1) [facility] Other 10-12-2023 Evaluation note* Encounter Date Diagnosis Assessment Notes Treatment Notes Treatment Clinical Notes Jul, Major depressive disorder, recurrent, moderate (ICD-10 - F33.1) [facility] Other 09-26-2023 Evaluation note* Encounter Date Diagnosis Assessment Notes Treatment Notes Treatment Clinical Notes Jun, Major depressive disorder, recurrent, moderate (ICD-10 - F33.1) [facility] Other 09-01-2023 Evaluation note* Encounter Date Diagnosis Assessment Notes Treatment Notes Treatment Clinical Notes Jun, Major depressive disorder, recurrent, moderate (ICD-10 - F33.1) [facility] Other 08-31-2023 Evaluation note* Encounter Date Diagnosis Assessment Notes Treatment Notes Treatment Clinical Notes May, Major depressive disorder, recurrent, moderate (ICD-10 - F33.1) [facility] Other 08-31-2023 Evaluation note* Encounter Date Diagnosis Assessment Notes Treatment Notes Treatment Clinical Notes May, Cervical pain (neck) (ICD-10 - M54.2) Dylan relates this pain similar to her neck issues in the past. Check xray. She will contact her neurosurgeon. Declines PT. Recommend heat therapy for pain [facility] Other 08-24-2023 Evaluation note* Encounter Date Diagnosis Assessment Notes Treatment Notes Treatment Clinical Notes May, Major depressive disorder, recurrent, moderate (ICD-10 - F33.1) [facility] Other 07-12-2023 Evaluation note* Encounter Date Diagnosis Assessment Notes Treatment Notes Treatment Clinical Notes Apr, Major depressive disorder, recurrent, moderate (ICD-10 - F33.1) [facility] Other 04-28-2023 Evaluation note* Encounter Date Diagnosis Assessment Notes Treatment Notes Treatment Clinical Notes Jan, Major depressive disorder, recurrent, moderate (ICD-10 - F33.1) [facility] Other 04-25-2023 Evaluation note* Encounter Date Diagnosis Assessment Notes Treatment Notes Treatment Clinical Notes Jan, Major depressive disorder, recurrent, moderate (ICD-10 - F33.1) [facility] Other 04-18-2023 Evaluation note* Encounter Date Diagnosis Assessment Notes Treatment Notes Treatment Clinical Notes Jan, Major depressive disorder, recurrent, moderate (ICD-10 - F33.1) [facility] Other 04-14-2023 Evaluation note* Encounter Date Diagnosis Assessment Notes Treatment Notes Treatment Clinical Notes Jan, Major depressive disorder, recurrent, moderate (ICD-10 - F33.1) [facility] Other 04-13-2023 Evaluation note* Encounter Date Diagnosis Assessment Notes Treatment Notes Treatment Clinical Notes Jan, Major depressive disorder, recurrent, moderate (ICD-10 - F33.1) [facility] Other 03-02-2023 Evaluation note* Encounter Date Diagnosis Assessment Notes Treatment Notes Treatment Clinical Notes Dec, Acute non-recurrent maxillary sinusitis (ICD-10 - J01.00) [facility] Other 02-21-2023 Evaluation note* Encounter Date Diagnosis Assessment Notes Treatment Notes Treatment Clinical Notes Nov, Major depressive disorder, recurrent, moderate (ICD-10 - F33.1) [facility] Other 01-27-2023 Evaluation note* Encounter Date Diagnosis [...] even if you start to feel better. [facility] Other 09-09-2022 Evaluation note* Encounter Date Diagnosis Assessment Notes Treatment Notes Treatment Clinical Notes Jun, Major depressive disorder, recurrent, moderate (ICD-10 - F33.1) [facility] Other 08-02-2022 Evaluation note* Encounter Date Diagnosis Assessment Notes Treatment Notes Treatment Clinical Notes May, Major depressive disorder, recurrent, moderate (ICD-10 - F33.1) [facility] Other 07-25-2022 Evaluation note* Encounter Date Diagnosis Assessment Notes Treatment Notes Treatment Clinical Notes 25 Juan, 2022 Major depressive disorder, recurrent, moderate (ICD-10 - F33.1) [facility] Other Evaluation noteNo InformationNort [employer] Other Evaluation noteNo assessment information available [facility] Work Phone: Evaluation note* Diagnosis Onset Date Resolution Status Anxiety and depression acute Dysuria acute Dysuria acute [facility] Work Phone: Evaluation note* Diagnosis Onset Date Resolution Status Anxiety and depression acute Dysuria acute Dysuria acute Cervical radicular pain acut e Dysuria acute [facility] Work Phone: Evaluation note* Diagnosis Acute pain [...] [facility] Diagnosis Well woman exam with routine gynecological exam- Primary Routine gynecological examination Abnormal uterine bleeding (AUB) Perimenopausal Symptomatic menopausal or female climacteric states Pap smear for cervical cancer screening Screening for malignant neoplasm of the cervix Vaginal discharge Leukorrhea, not specified as infective Hot flashes Chronic nonintractable headache, unspecified headache type [facility] Low libido- Primary Hot flashes Perimenopausal Symptomatic menopausal or female climacteric states [facility] N[facility]ative - Reported* Type Description Date Medical History cholecystecomy Medical History lamenectomy 2019 Medical History gastric sleeve Surgical History cholecystectomy Surgical History cholecystectomy, gastric sleeve Surgical History Gastric Sleeve Hospitalization History see above [facility] Other History general Narrative - Reported* Type [...] NERVE ROOT FOAMINOTOMY Hospitalization History see above [facility] Other History general Narrative - Reported* Type [...] (Dr. Julito tabares) Hospitalization History see above [facility] Other Hospital Discharge instructions Additional Instructions POSTOPERATIVE INSTRUCTIONS FOR ROTATOR CUFF REPAIR Zach Celaya DO Orthopedic Surgeon [facility] GENERAL INSTRUCTIONS: Use ice packs to the [...] office immediately. Zach Celaya DO Orthopedic Surgeon [facility] Office: [address] [place] [address] Office number: [phone] [facility] Work Phone: Hospital Discharge instructions Additional Instructions DISCHARGE INSTRUCTIONS FOR COLONOSCOPY WHAT TO EXPECT: - You may feel full, gassy or cramping after your procedure. In some cases, this may be from a few hours to a day. Walking may help relieve the discomfort. - If you have polyp(s) removed you may note some minor bloody discharge after your first bowel movements. - You should begin to recover from anesthesia within 1 hour of the procedure, however may feel groggy for the next 24 hours. DO's AND DON'Ts: - Call your doctor right away if you have a hard abdomen, severe pain, are passing lots of bright red blood or clots. - Call your doctor if you develop any rashes, hives or difficulty breathing. - Let your doctor know if you have not had a bowel movement by 3 days after your procedure. - If you take 81 mg aspirin for your heart it is safe to resume this medication. - If you take other blood thinner medications your doctor will instruct you when these can safely be resumed. - Do NOT drive for 24 hours. - Do NOT operate machinery such as power tools, lawn mowers, snow blowers, sewing machines, etc. for 24 hours. - Avoid alcoholic beverages and drugs for allergies, nerves, or sleep. - Do NOT stay alone. Do NOT leave your child unattended. - Do NOT make important personal or business decisions or sign any legal documents. - Eat solid foods and drink liquids in smaller amounts than usual until normal appetite returns. If you should experience an upset stomach, liquids high in sugar content (soda, Rashad-Aid, non-acid juices) are recommended. - You can resume normal activities tomorrow. FOLLOW UP & RECOMMENDATIONS: -Please call the office and make a follow up appointment to see me as needed. -Notify the doctor if you have any problems. -Repeat colonoscopy in 1 years with 2 day bowel preparation -Follow up with PCP. -Office number [phone]. [facility] Work Phone: InstructionsNot on filedocumented in this encounter [facility] SystemInstructionsNot on filedocumented in this encounter [facility]* Attachments The following attachments cannot be sent through Care Everywhere. * Estradiol (Topical), ADULT (Iraqi) * Fezolinetant, ADULT (Iraqi) documented in this encounterUniversity [facility] CenterReason for visit Narrative* Rehabilitation - Outpatient (Routine) - Authorized Specialty Diagnoses / Procedures Referred By Contac t Referred To Contact Physical Therapy Diagnoses Left Rotator Cuff Syndrome, DDD C-spine Procedures ME PHYSICAL THERAPY EVALUATION LOW COMPLEX 20 MINS ME OFFICE/OUTPATIENT [facility] Zach Magallanes MD [address] [place] [address] Phone: tel: fax: Bebe Huston, PT [address] [address] Phone: tel: fax: Referral ID Status Reason Start Date Expiration Date V isits Requested Visits Authorized [id number] Authorized 09/29/2024 03/28/2025 60 60 [facility] for visit Narrative* Rehabilitation - Outpatient (Routine) - Authorized Specialty Diagnoses / Procedures Referred By Contac t Referred To Contact Physical Therapy Diagnoses Left Rotator Cuff Syndrome, DDD C-spine Procedures ME PHYSICAL THERAPY EVALUATION LOW COMPLEX 20 MINS ME OFFICE/OUTPATIENT [facility] Zach Magallanes MD [address] [place] [address] Phone: tel: fax: Bebe Huston, PT [address] [address] Phone: tel: fax: Referral ID Status Reason Start Date Expiration Date V isits Requested Visits Authorized [id number] Authorized 09/29/2024 10/12/2024 60 60 [facility] for visit Narrative* Rehabilitation - Outpatient (Routine) - Closed Specialty Diagnoses / Procedures Referred By Contac t Referred To Contact Physical Therapy Diagnoses Left Rotator Cuff Syndrome, DDD C-spine Procedures ME PHYSICAL THERAPY EVALUATION LOW COMPLEX 20 MINS ME OFFICE/OUTPATIENT [facility] Zach Magallanes MD [address] [place] [address] Phone: tel: fax: Bebe Huston, PT 112 [facility] [address] [place] [address] Phone: tel: fax: Referral ID Status Reason Start Date Expiration Date Visits Re quested Visits Authorized [id number] Closed 09/29/2024 10/12/2024 60 60 [facility] HealthcareReason for visit Narrative* Rehabilitation - Outpatient (Routine) - Authorized Specialty Diagnoses / Procedures Referred By Silas marrero Referred To Contact Physical Therapy Diagnoses Left Rotator Cuff Syndrome, DDD C-spine Procedures ME THERAPEUTIC PX 1/> AREAS EACH 15 MIN EXERCISES ME THER PX 1/> AREAS EACH 15 MIN NEUROMUSC REEDUCA ME MANUAL THERAPY TQS 1/> REGIONS EACH 15 MINUTES PHYS/OCC THERAPY SS Zach Celaya MD [address] [place] [address] Phone: tel: fax: Bebe Huston, PT [address] [address] Phone: tel: fax: Referral ID Status Reason Start Date Expiration Date V isits Requested Visits Authorized [id number] Authorized 10/13/2024 10/12/2025 60 60 [facility] Healthcare Summary Purpose Family History No Family [...] neoplasm Unknown Malignant neoplasm of breast Unknown Relationship Condition Age at Onset Recorded Date/T tex father High blood cholesterol Unknown Heart disease Unknown Family history of mental disorder Unknown Malignant neoplasm of lung Unknown History of heart bypass surgery Unknown Malignant neoplasm Unknown Hypertension Unknown mother Malignant neoplasm of breast Unknown Malignant neoplasm of colon Unknown Advance Directives No Advanced Directives Records [...] August 17, 2024 1 0:00am CONSULT DR. CONNER GOOD LT SHOULDER [place] N, WX September [...] :09pm Chief Complaint Admit Date CONSULT DR. CONNER GOOD LT SHOULDER [place] N, WX September [...] :09pm Chief Complaint Admit Date CONSULT DR. CONNER GOOD LT SHOULDER [place] N, WX September 13, 2024 1:34pm Right ankle injury s/p fall at home 2024 3:09pm S93.401A November 11, 2024 3 :38pm Cough, fever November 22, 2024 9:47am 8 WEEKS December 02, 2024 9:00am Reason for Visit Admit Date Degenerative disc disease, cervical Dece mber 2023 1:34pm Rotator cuff syndrome of left shoulder D ecember 2023 1:34pm Right ankle injury November 11, 2024 3 :09pm Influenza A November 22, 2024 9:47am Degenerative disc disease, cervical Febr 2024 9:00am Rotator cuff syndrome of left shoulder F [facility] 2024 9:00am Chief Complaint Admit Date CONSULT DR. CONNER GOOD LT SHOULDER [place] N, WX September 13, 2024 1:34pm Right ankle injury s/p fall at home Jorge ayng2024 3:09pm S93.401A November 11, 2024 3 :38pm [...] Rotator cuff syndrome of left shoulder F [facility] 2024 9:00am Chest pain December 03, 2024 [...] Rotator cuff syndrome of left shoulder F 2024 9:00am Chest pain December 03, 2024 3:59pm Degenerative disc disease, cervical Apri l 2024 7:53am Rotator cuff syndrome of left shoulder A 2024 7:53am Chief Complaint Admit Date Right ankle [...] Rotator cuff syndrome of left shoulder F [facility]2024 9:00am Chest pain December 03, 2024 [...] of left shoulder A pril 2024 7:53am Chief Complaint Admit Date Right ankle [...] 12: 04pm Chief Complaint Admit Date 8 December 02, 2024 9:00am cough w mucus, [...] adult exam March 15, 2025 10:58 am Chief Complaint Admit Date m75.10 January 10, 2025 7:5 1am MRI RESULTS January 13, 2025 7:53 am Shoulder pain January 26, 2025 3:3 3pm Shoulder pain February 09, 2025 8:3 5am Shoulder pain February 09, 2025 12: 04pm 10-14 days post op February 22, 2025 2:41p m Wellness March 15, 2025 10:58 am 6 WEEKS April 05, 2025 10:2 3am S/P L RTC April 06, 2025 9:00 am Screening April 07, 2025 9:30 am Reason for Visit Admit Date Bicipital [...] 2:41pm Rotator cuff syndrome of left shoulder [facility] 2024 2:41pm Status post arthroscopy of left shoulder February 22, 2025 2:41pm Anemia March 15, 2025 10:58 am Colon cancer screening March 15, 2025 10 :58am Family history of colon cancer March 15, 2025 10:58am Screening mammogram for breast cancer 2024 10:58am Well adult exam March 15, 2025 10:58 am Bicipital tendinitis, left shoulder April 05, 2025 10:23am Degenerative disc disease, cervical April 05, 2025 10:23am Left rotator cuff tear April 05, 2025 1 0:23am Pain in left acromioclavicular joint Dimitris e 2024 10:23am Rotator cuff impingement syndrome of lef t shoulder April 05, 2025 10:23am Rotator cuff syndrome of left shoulder J une 2024 10:23am Status post arthroscopy of left shoulder April 05, 2025 10:23am Additional Source Comments REASON FOR VISIT (unrecogniz ed section and content) Reason Onset Date Comments re: PT today 10/04/2024 INFORMATION SOURCE (unrecogn ized section and content) DATE CREATED AUTHOR 07/23/2022 [facility] DATE CREATED AUTHOR AUTHOR'S ORGANIZ ATION 11/13/2024 [facility] EP[facility] DATE CREATED AUTHOR AUTHOR'S ORGANIZ ATION 12/06/2024 [facility] DATE CREATED AUTHOR AUTHOR'S ORGANIZ ATION 04/13/2025 [facility] DATE CREATED AUTHOR AUTHOR'S ORGANIZ ATION 04/21/2025 [facility] Care Teams (unrecognized sec tion and content) Team Status: Active Member Role Status Dates Conner Good MD Primary Care Provider Active Team Status: Inactive Member Role Status Dates Connre Good MD Primary Care Provide r, Attending Provider Active Start: May 31, 2024 End: May 31, 2024 Team Status: Active Member Role Status Dates Conner Good MD Primary Care Provider Active Start: December 11, 2023 ELENA Donohue Attending Provider Active Start : December 11, 2023 Team Status: Active Member Role Status Dates Conner Good MD Primary Care Provider Active Start: December 22, 2023 ELENA Donohue Attending Provider Active Start : December 22, 2023 Team Status: Inactive Member Role Status Dates Conner Good MD Primary Care Provide r, Attending Provider Active Start: January 15, 2024 End: January 15, 2024 Team Status: Inactive Member Role Status Dates Conner Good MD Primary Care Provide r, Attending Provider Active Start: June 10, 2024 End: June 10, 2024 Team Status: Inactive Member Role Status Dates Conner Good MD Primary Care Provide r, Attending Provider Active Start: August 17, 2024 End: August 17, 2024 Team Status: Inactive Member Role Status Dates Conner Good MD Attending Provider Active St art: August 17, 2024 End: August 17, 2024 [employer] Relationship Specialty Start Date End Date Aylin Celaya MD [address] [facility] [address] [place] [address] PCP - General Internal Medicine 10/14/24 [employer] Relationship Specialty Start Date End Date Aylin Celaya MD [address] [place] [address] PCP - General Internal Medicine 10/14/24 [employer] Relationship Specialty Start Date End Date Aylin Celaya MD [address] [place] [address] PCP - General Internal Medicine 10/14/24 [employer] Relationship Specialty Start Date End Date Aylin Celaya MD [address] [place] [address] PCP - General Internal Medicine 10/14/24 [employer] Relationship Specialty Start Date End Date Aylin Celaya MD [address] [place] [address] PCP - General Internal Medicine 10/14/24 [employer] Relationship Specialty Start Date End Date Aylin Celaya MD [address] [place] [address] PCP - General Internal Medicine 10/14/24 Team Status: Inactive Member Role Status Dates Zach Celaya DO Attending Provider Active St art: September 13, 2024 End: September 13, 2024 Conner Good MD Primary Care Provider Active Start: September 13, 2024 End: September 13, 2024 Team Status: Inactive Member Role Status Dates Conner Good MD Primary Care Provider Active Start: November 11, 2024 End: November 11, 2024 Mikki Mendez APRN Attending Provider Active Start: November 11, 2024 End: November 11, 2024 Team Status: Active Member Role Status Dates Conner Good MD Primary Care Provider Active Start: November 11, 2024 Mikki Mendez APRN Attending Provider Active Start: November 11, 2024 Team Status: Inactive Member Role Status Dates Conner Good MD Primary Care Provider Active Start: November 22, 2024 End: November 22, 2024 Kerrie Celaya APRN Attending Provider Active Start: November 22, 2024 End: November 22, 2024 Team Status: Inactive Member Role Status Dates Conner Good MD Primary Care Provider Active Start: December 02, 2024 End: December 02, 2024 Zach Celaya DO Attending Provider Active St art: December 02, 2024 End: December 02, 2024 Team Status: Inactive Member Role Status Derrell Good MD Primary Care Provider Active Start: December 03, 2024 End: December 03, 2024 Lyn Musa APRN Attending Provider Active S tart: December 03, 2024 End: December 03, 2024 Team Status: Active Member Role Status Dates Conner Good MD Primary Care Provider Active Start: December 06, 2024 Celine Lowry CMA Attending Provider Active Start: December 06, 2024 Team Status: Inactive Member Role Status Dates Conner Good MD Primary Care Provider Active Start: January 10, 2025 End: January 10, 2025 Zach Celaya DO Attending Provider Active St art: January 10, 2025 End: January 10, 2025 Team Status: Inactive Member Role Status Dates Conner Good MD Primary Care Provider Active Start: January 13, 2025 End: January 13, 2025 Zach Celaya DO Attending Provider Active St art: January 13, 2025 End: January 13, 2025 Team Status: Inactive Member Role Status Dates Conner Good MD Primary Care Provider Active Start: January 26, 2025 End: January 26, 2025 Zach Celaya DO Attending Provider Active St art: January 26, 2025 End: January 26, 2025 Team Status: Inactive Member Role Status Dates Conner Good MD Primary Care Provider Active Start: February 09, 2025 End: February 09, 2025 Zach Celaya DO Attending Provider Active St art: February 09, 2025 End: February 09, 2025 Team Status: Active Member Role Status Dates Conner Good MD Primary Care Provider Active Start: February 09, 2025 Zach Celaya DO Attending Provider, Other Provider Active Start: February 09, 2025 Team Status: Active Member Role Status Dates Conner Good MD Primary Care Provider Active Start: February 11, 2025 Zach Celaya , Attending Provider Active St art: February 11, 2025 Team Status: Inactive Member Role Status Dates Conner Good MD Primary Care Provider Active Start: February 22, 2025 End: February 22, 2025 Zach Celaya DO Attending Provider Active St art: February 22, 2025 End: February 22, 2025 Team Status: Active Member Role Status Dates Conner Good MD Primary Care Provider Active Start: March 11, 2025 Zach Celaya DO Attending Provider Active St art: March 11, 2025 Team Status: Inactive Member Role Status Dates Conner Good MD Primary Care Provide r, Attending Provider Active Start: March 15, 2025 End: March 15, 2025 Team Status: Active Member Role Status Dates Conner Good MD Primary Care Provider Active Start: February 09, 2025 Zach Celaya DO Attending Provider Active St art: February 09, 2025 Zach Celaya DO Other Provider Active Start: February 09, 2025 Team Status: Inactive Member Role Status Dates Conner Good MD Primary Care Provider Active Start: March 15, 2025 End: March 15, 2025 Conner Good MD Attending Provider Active St art: March 15, 2025 End: March 15, 2025 Team Status: Active Member Role Status Dates Conner Good MD Primary Care Provider Active Start: April 02, 2025 Conner Good MD Attending Provider Active St art: April 02, 2025 Team Status: Inactive Member Role Status Dates Conner Good MD Primary Care Provider Active Start: April 05, 2025 End: April 05, 2025 Zach Celaya DO Attending Provider Active St art: April 05, 2025 End: April 05, 2025 Team Status: Active Member Role Status Dates Conner Good MD Primary Care Provider Active Start: April 06, 2025 Zach Celaya DO Attending Provider Active St art: April 06, 2025 Team Status: Active Member Role Status Dates Conner Good MD Primary Care Provider Active Start: April 07, 2025 Celine Edward DO Attending Provider Active St art: April 07, 2025 Celine Edward DO Other Provider Active Start: April 07, 2025 [employer] Relationship Specialty Start Date End Date Conner Good MD [address] [place], [place] [id number] PCP - General Family Medicine 02/18/21 [employer] Relationship Specialty Start Date End Date Conner Good MD [address] [place] [address] PCP - General Family Medicine 02/18/21 [employer] Relationship Specialty Start Date End Date Conner Good MD [address] [place] [address] PCP - General Family Medicine 02/18/21 Goals (unrecognized section and content) Goals may [...] BE BASED ON THE PRIMARY CLINICAL RECORDS. [facility] [employer] provides no warranty or guarantee of the accuracy or completeness of information in this document.
--- NOTE | 2025-04-22 09:24 | MM_ITS ---
Patient Name: DYLAN BRANDON MR#: [id number] : 1975 Exam Date: 04/22/2025 Ordering Doctor: DR CONNER GOOD M.D. RADIOLOGY REPORT PROCEDURE: MM TOMOSYNTHESIS SCREENING BI COMPARISON: MG MAMM SCREEN 3D CHAI CAD, 07/22/2022. INDICATIONS: Screening Calculator Name NCI Breast Cancer Risk Assessment Tool 5 Year Breast Cancer Risk 1.70% Lifetime Breast Cancer Risk 16.90% Personal Breast Cancer No Personal Ovarian Cancer No Treatments None Family Cancers Mother with breast cancer at age 66; Mother with colon cancer at age 71; Father with lung cancer at age 42. LOCATION: [facility] BREAST COMPOSITION: There are scattered areas of fibroglandular density. FINDINGS: RIGHT BREAST: No significant suspicious finding. Benign-appearing calcifications are present. Benign-appearing lymph nodes are noted along the chest wall. LEFT BREAST: No significant suspicious finding. Benign-appearing calcifications are present. Benign-appearing lymph nodes are noted along chest wall. DIAGNOSTIC CATEGORY 2--BENIGN FINDING: RECOMMENDATIONS: ROUTINE MAMMOGRAM AND CLINICAL EVALUATION IN 12 MONTHS. PLEASE NOTE: A NORMAL MAMMOGRAM DOES NOT EXCLUDE THE POSSIBILITY OF BREAST CANCER. A CLINICALLY SUSPICIOUS PALPABLE LUMP SHOULD BE BIOPSIED. Dictated by: Russ Johansen MD on 04/22/2025 at 10:43 Approved by: Russ Johansen MD on 04/22/2025 at 11:13
== END 2025-04-22 08:54 | disposition home or self-care (01) ==
PROVIDERS: PCP Family Medicine; Visit Provider Family Medicine
DX: Z12.31 Encounter for screening mammogram for malignant neoplasm of breast (principal); Z80.3 Family history of malignant neoplasm of breast; Z80.0 Family history of malignant neoplasm of digestive organs; Z80.1 Family history of malignant neoplasm of trachea, bronchus and lung
CPT/HCPCS: 77063; 77067